=== PATIENT | male | born 1955 | race Caucasian/White ===

== ENCOUNTER → 2018-06-04 11:11 | Outpatient (CLI) | payer OTHER, SELFPAY ==
--- NOTE | 2018-06-04 | DI.RAD.S_ITS ---
PROCEDURE: XR CHEST 2V INDICATIONS: COUGH/FORMER SMOKER TECHNIQUE: 2 views of the chest were acquired. COMPARISON: [facility], , CHEST 2 VIEW, 04/13/2016, 12:59. FINDINGS: Surgical changes and devices: None. Lungs and pleura: No acute consolidation. Scattered subsegmental atelectasis and/or scarring. No pleural effusions or pneumothorax. Mediastinum: Mediastinal contours are normal. Heart size is normal. Bones and chest wall: No suspicious bony abnormalities. Soft tissues appear unremarkable. IMPRESSION: No acute disease. Dictated by: Dima Caceres M.D. on 06/04/2018 at 12:15 Approved by: Dima Caceres M.D. on 06/04/2018 at 12:16
== END ==
PROVIDERS: PCP Family Medicine; Visit Provider Family Medicine
DX: R05 Cough (principal); Z87.891 Personal history of nicotine dependence
CPT/HCPCS: 71046

== ENCOUNTER → 2018-07-24 19:07 | Outpatient (CLI) | payer OTHER, SELFPAY | PROVIDERS: Family Provider Family Medicine; PCP Family Medicine; Visit Provider Physician Assistant | DX: R68.89 Other general symptoms and signs (principal) | CPT/HCPCS: 87400 ==

== ENCOUNTER 2018-07-24 20:08 | Emergency (ER) | payer OTHER, SELFPAY ==
[2018-07-24 20:17] VITALS: BP 109/75; PULSE 91; RESP 18; TEMP 36.2; O2SAT 98
[2018-07-24 21:13] LABS: Add Manual Diff / Slide Review NO; Basophils Absolute Auto 0 /uL (0-100); Basophils Percent Auto 0.4 % (0-2); Eosinophils Absolute Auto 0 /uL (0-450); Hematocrit 44.2 % (41-53); Hemoglobin 14.7 g/dL (13.5-17.5); Lymphocytes Absolute Auto 800 /uL (1100-4500); Lymphocytes Percent Auto 12.5 % (25-40); Mean Corpuscular HGB Conc 33.3 % (30-36); Mean Corpuscular Hemoglobin 28.4 PG (26-34); Mean Corpuscular Volume 85.2 fL (80-100); Monocytes Absolute Auto 800 /uL (0-900); Monocytes Percent Auto 12.7 % (3-14); Neutrophils Absolute Auto 4900 /uL (1500-7000); Neutrophils Percent Auto 74.4 % (50-75); Platelet Count 242 X10^3/uL (150-400); Red Blood Cell Count 5.19 X10^6/uL (4.5-5.9); Red Cell Distribution Width 13.8 % (11.6-14.8); White Blood Cell Count 6.6 X10^3/uL (4.5-11.0)
[2018-07-24 21:22] LABS: Alanine Aminotransferase 35 IU/L (21-72); Albumin 4.1 g/dL (3.5-5.0); Albumin Globulin Ratio 1.4 (1.0-2.8); Alkaline Phosphatase 45 U/L (38-126); Aspartate Aminotransferase 41 IU/L (17-59); BUN Creatinine Ratio 17.3 (6-22); Bilirubin Total 0.4 mg/dL (0.2-1.3); Blood Urea Nitrogen 19 mg/dL (9-20); Calcium 8.7 mg/dL (8.4-10.2); Carbon Dioxide 23 mmol/L (22-32); Chloride 97 mmol/L (98-107); Estimated Glomerular Filt Rate > 60.0 mL/min (>60); Glucose 104 mg/dL (80-110); HEMOLYSIS 39 (0-50); Potassium 3.7 mmol/L (3.4-5.1); Sodium 131 mmol/L (137-145); Total Protein 7.1 g/dL (6.3-8.2)
[2018-07-24] MEDS: SODIUM CHLORIDE 0.9% 1,000 ML 1000 ML IV ×2 (21:30→22:49)
[2018-07-24 22:29] LABS: Creatine Kinase 255 U/L (55-170)
[2018-07-24 22:41] LABS: Troponin I < 0.012 ng/mL (0.01-0.034)
[2018-07-24 22:45] LABS: CKMB % Relative Index 0.7 % (1.5-5.0); Creatine Kinase MB 1.91 ng/mL (<2.37)
[2018-07-24 23:02] VITALS: BP 125/81; PULSE 82; RESP 18; O2SAT 100
--- NOTE | 2018-07-24 23:36 | ED.URI ---
HPI - URI/Sore Throat General Chief Complaint: Upper Respiratory Symptoms Stated Complaint: SENT BY WALK IN CLINIC Time Seen by Provider: 07/24/18 20:31 Source: patient and family Mode of arrival: ambulatory Limitations: no limitations History of Present Illness HPI Narrative: Patient comes emergency department complaining of fatigue for the past 4 days. Patient states that he has been noticing a mildly productive cough, diarrhea, body aches, fevers. He went to urgent care earlier, and was tested for influenza, but was not given results. He was also found to be in atrial fibrillation. Patient states he does not have any chest pain, shortness breath, or palpitations. No sense of heart racing. Patient is not known to have been in AFib before. Patient states he has a history of irregular heartbeat 15 or 20 years ago was to PVCs. States he has not had any other issues with this since. No other complaints at this time. Related Data Home Medications Medication Instructions Recorded Confirmed valsartan PO 07/24/18 07/24/18 Allergies Allergy/AdvReac Type Severity Reaction Status Date / Time No Known Drug Allergies Allergy Verified 07/24/18 19:22 Review of Systems Constitutional Denies chills, Reports fever(s), Denies lethargy and Denies weakness Eyes Denies change in vision, Denies eye discharge, Denies irritation and Denies loss of vision ENT Ears, Nose, Mouth, and Throat: Denies change in voice, Denies neck pain and Denies sore throat Cardiovascular Denies chest pain, Denies irregular heart rhythm, Denies lightheadedness, Denies palpitations, Denies dyspnea, Denies dyspnea on exertion and Denies orthopnea Respiratory Reports cough, Denies dyspnea, Denies dyspnea on exertion and Denies wheezing Gastrointestinal Gastrointestinal: Denies abdominal pain, Denies change in bowel habits, Reports diarrhea, Denies nausea and Denies vomiting Genitourinary Denies hematuria, Denies flank pain, Denies urinary incontinence and Denies urinary urgency Musculoskeletal Denies neck pain Integumentary/Breasts Denies pruritus, Denies erythema, Denies rash and Denies wounds Neurologic Denies confusion, Denies loss of vision and Denies weakness Psychiatric Denies anxiety, Denies confusion, Denies depression, Denies homicidal ideation and Denies suicidal ideation Endocrine Denies palpitations Hematologic/Lymphatic Denies easy bruising Allergic/Immunologic Denies wheezing [facility] Medical History Healthy adult (Acute) Surgical History No pertinent past surgical history (Acute) Social History Smoking Status: Former smoker Social History Smoking Status: Former smoker Exam Initial Vital Signs Initial Vital Signs: Vital Signs Temperature 97.1 F L 07/24/18 20:17 Pulse Rate 91 H 07/24/18 20:17 Respiratory Rate 18 07/24/18 20:17 Blood Pressure 109/75 07/24/18 20:17 Pulse Oximetry 98 07/24/18 20:17 Const General: cooperative and well developed Nutritional Appearance: well nourished Orientation: alert, awake, oriented x3 and not confused HENMT Head: normocephalic and atraumatic Ears: external ears normal and TM's normal bilaterally Nose: external nose normal and No nasal discharge Face and sinus: sinuses nontender, face symmetric, no sinus tenderness and No dry mucous membranes Mouth: oral mucosae normal and moist mucous membranes Teeth and gingiva: dentition normal Throat: tonsils normal and uvula midline Eyes General: appearance normal, both eyes and all related structures Eyelids: eyelids normal Conjunctivae: conjunctivae normal Sclera: sclerae normal Pupils: PERRL EOM: EOM intact bilaterally Neck Neck: normal visual inspection, trachea midline, No lymphadenopathy, No midline deformity and No JVD Lymphatic: No lymphedema Chest Chest: normal inspection of the chest Resp Effort & Inspection: normal respiratory effort, able to speak in complete sentences, no respiratory distress and no use of accessory muscles Auscultation: clear to auscultation bilaterally, no rales, no rhonchi and no wheezes Cardio Rhythm: abnormal rhythm irregularly irregular Heart Sounds: no click, no gallops, no murmurs and no rubs Pulses: normal peripheral pulses GI Inspection: non-distended Palpation: soft, no hepatosplenomegaly, No guarding, No pulsatile mass and No tender Auscultation: normal bowel sounds Back/Spine/Pelvis Back: No CVA tenderness Cervical Spine: cervical ROM normal and No pain with cervical ROM Thoracic/Lumbar Spine: thoracic and lumbar spine normal to inspection Skin General: no rashes or lesions noted, No jaundice and No petechiae Neuro General: alert, oriented x3, gait normal and no focal motor deficits Speech: speech normal Extrem General: full ROM, no clubbing, cyanosis or edema, no pedal edema and no calf tenderness Psych Appearance: well kempt Mental Status: mental status grossly normal Attitude: cooperative Thought Content: normal and suicidality Judgment: judgment good Course Course Narrative: Patient was worked up with laboratory studies, which showed a mild hyponatremia. His calcium potassium were normal. Patient's white blood cell count was also normal. His EKG showed atrial fibrillation with rate. Patient's influenza results from urgent care clinic was reviewed, and found to be positive. Patient was out of the window for Tamiflu. Patient was given a dose of digoxin the emergency department, which did not result in conversion of his rhythm. However, patient remained at a normal rate throughout his stay. I did feel that the patient should follow up with Cardiology, though otherwise he appeared quite well. I felt that his fatigue was more likely to be due to his influenza than to the rate controlled atrial fibrillation, given his normal blood pressure, generally good health and lack of other cardiac pathology. We have discussed home management of the symptoms, the timeline for illness and resolution with regard to influenza, and the usual indications for return. Orders Ordered: Discontinued Medications Sodium Chloride (Normal Saline 0.9%) 1,000 mls @ 1,000 mls/hr IV BOLUS ONE Stop: 07/24/18 22:04 Last Infusion: 07/24/18 22:30 Dose: 0 mls/hr Admin: 07/24/18 21:30 Dose: 1,000 mls/hr Sodium Chloride (Normal Saline 0.9%) 1,000 mls @ 1,000 mls/hr IV BOLUS ONE Stop: 07/24/18 23:28 Last Infusion: 07/24/18 23:50 Dose: 0 mls/hr Admin: 07/24/18 22:49 Dose: 1,000 mls/hr Vital Signs - 8 hr 07/24/18 20:17 07/24/18 23:02 Temperature 97.1 F L Pulse Rate 91 H 82 Respiratory Rate 18 18 Blood Pressure 109/75 Blood Pressure [Left Arm] 125/81 Pulse Oximetry 98 100 MDM - URI/Sore Throat Medical Records Attestation: I reviewed the patient's medical records. Lab Data Attestation: I reviewed the patient's lab results. Result diagrams: 07/24/18 21:07/24/18 21:09 Lab Results 07/24/18 07/24/18 07/24/18 Range/Units 21:09 21:09 21:09 WBC 6.6 (4.5-11.0) X10^3/uL RBC 5.19 (4.5-5.9) X10^6/uL Hgb 14.7 (13.5-17.5) g/dL Hct 44.2 (41-53) % MCV 85.2 (80-100) fL MCH 28.4 (26-34) PG MCHC 33.3 (30-36) % RDW 13.8 (11.6-14.8) % Plt Count 242 (150-400) X10^3/uL Neut % (Auto) 74.4 (50-75) % Lymph % (Auto) 12.5 L (25-40) % Pine % (Auto) 12.7 (3-14) % Eos % (Auto) 0.0 L (2-4) % Baso % (Auto) 0.4 (0-2) % Neut # (Auto) 4900 (5251-0497) /uL Lymph # (Auto) 800 L (8191-7170) /uL Pine # (Auto) 800 (0-900) /uL Eos # (Auto) 0 (0-450) /uL Baso # (Auto) 0 (0-100) /uL Sodium 131 L (137-145) mmol/L Potassium 3.7 (3.4-5.1) mmol/L Chloride 97 L (98-107) mmol/L Carbon Dioxide 23 (22-32) mmol/L BUN 19 (9-20) mg/dL Creatinine 1.10 (0.66-1.25) mg/dL Estimated GFR > 60.0 (>60) mL/min BUN/Creatinine Ratio 17.3 (6-22) Glucose 104 (80-110) mg/dL Calcium 8.7 (8.4-10.2) mg/dL Total Bilirubin 0.4 (0.2-1.3) mg/dL AST 41 (17-59) IU/L ALT 35 (21-72) IU/L Alkaline Phosphatase 45 (38-126) U/L Total Creatine Kinase 255 H (55-170) U/L CK-MB (CK-2) 1.91 (<2.37) ng/mL CK-MB (CK-2) Rel Index 0.7 L (1.5-5.0) % Troponin I < 0.012 (0.01-0.034) ng/mL Total Protein 7.1 (6.3-8.2) g/dL Albumin 4.1 (3.5-5.0) g/dL Globulin 3.0 (1.7-4.1) g/dL Albumin/Globulin Ratio 1.4 (1.0-2.8) ECG Data Attestation: I personally reviewed and interpreted this ECG as follows: ( See below) Interpretation: 12 lead EKG performed July 24, 2018 at 8:28 p.m., as follows: Irregular ventricular rhythm with a rate of 86 beats per minute MA interval and P-waves undetectable QRS duration 92 millisecond QTC interval [address] or T-wave changes in summary: Atrial fibrillation with normal rate; no STEMI; abnormal EKG as interpreted by ED MD. Discharge Plan Departure Patient Disposition: Home Clinical Impression: Influenza Atrial fibrillation Qualifiers: Atrial fibrillation type: unspecified Qualified Code(s): I48.91 - Unspecified atrial fibrillation Discharge Date/Time: 07/25/18 00:52 Interventions: ED Discharge Assessment Last Done: 07/25/18 00:52 Instructions: DI for Atrial Fibrillation, DI for Influenza -- Adult Activity Restrictions/Additional Instructions: Your influenza test from the urgent care center was positive. The symptoms you are having our very typical of influenza, and will subside as your body overcomes the virus. You may take ibuprofen and Tylenol for fever, as needed. You should drink plenty of fluids. Your heart was found to be in an irregular rhythm called atrial fibrillation. Your heart rate has been normal, which is good. Your sodium was slightly low, not low enough to cause any major heart arrhythmias. Your potassium and calcium were normal. Prescriptions: No Action valsartan PO RF: 0 Referrals: [facility] Cardiology [Provider Group] (Please call tomorrow to make an appointment to follow up as soon as possible about your new onset atrial fibrillation.) Justin Zeng MD [Primary Care Provider] -
[2018-07-24 23:56] VITALS: BP 123/82; PULSE 94; RESP 18; O2SAT 97
== END 2018-07-25 00:52 | disposition home or self-care (01) ==
PROVIDERS: Emergency Provider Emergency Medicine; Family Provider Family Medicine; PCP Family Medicine
DX: J11.1 Influenza due to unidentified influenza virus with other respiratory manifestations (principal); I48.91 Unspecified atrial fibrillation; R68.89 Other general symptoms and signs
CPT/HCPCS: 36591; 80053; 82550; 82553; 84484; 85025; 87400; 93005; 96360; 96361; 99283; 99284

== ENCOUNTER → 2018-08-04 08:11 | Outpatient (CLI) | payer OTHER, SELFPAY ==
--- NOTE | 2018-08-04 | DI.ECHO.S_ITS ---
[facility] +---------+ : : [address] : : : : [place], [place] : : : : [id number] : : : : Phone: [phone] Echocardiogram Report + + :Name: ASHWINI HARP Study Date: 08/04/2018 Height: 69 in : :[facility] Weight: 224 lb : : Gender: Male BSA: 2.2 m2 : :: 1955 Age: 62 yrs BP: 110/66 mmHg: :Reason For Study: Atrial fibrillation : : Performed By: Lena Navarro : :Referring: RAE MARADIAGA : + + Interpretation Summary Normal left ventricle size with ejection fraction 60-65%. Moderately dilated left atrium. Mild to moderate mitral regurgitation. Mild tricuspid regurgitation. Procedure: A two-dimensional transthoracic echocardiogram with color flow and Doppler was performed. The study quality was technically adequate. There is no prior echocardiogram noted for this patient. The patient was in atrial fibrillation with heart rates between 65-80 bpm during the exam. Left Ventricle: The left ventricle is normal in size. There is normal left ventricular wall thickness. The ejection fraction is estimated to be 60-65%. There are no focal wall motion abnormalities. Diastolic function could not be accurately assessed due to atrial fibrillation. Right Ventricle: The right ventricle grossly appears normal in size with probable normal systolic function. Atria: The left atrium is moderately dilated. Right atrial size is normal. The interatrial septum is intact with no evidence for an atrial septal defect. Mitral Valve: The mitral valve is grossly normal. There is mild to moderate mitral regurgitation. Aortic Valve: The aortic valve is trileaflet. The aortic valve opens well. No aortic regurgitation is present. Tricuspid Valve: The tricuspid valve is not well visualized, but is grossly normal. There is mild tricuspid regurgitation. The right ventricular systolic pressure is estimated to be at least 24 mmHg based on an estimated right atrial pressure of 3 mm Hg. Pulmonic Valve: The pulmonic valve is normal in structure and function. There is trace pulmonic regurgitation. Great Vessels: The aortic root is normal size. The dimensions of the ascending aorta are normal. The aortic arch is normal in size. The IVC is of normal diameter and collapses greater than 50% with a sniff. This suggests a low right atrial pressure of 3 mm Hg. Pericardium/ Pleura There is no pericardial effusion. There is no pleural effusion. MMode/2D Measurements & Calculations LVIDd: 4.8 cm Ao root diam: 3.6 cm LVIDs: 3.3 cm Aortic Jxn: 3.0 cm FS: 31.8 % asc Aorta Diam: 3.4 cm EPSS: 1.2 cm Ao Arch Diam (Prox Trans): 2.8 cm IVSd: 0.99 cm LVPWd: 0.94 cm LV mahan. diameter/BSA (cm/m^2): 2.2 LV sys. diameter/BSA (cm/m^2): 1.5 LA dimension: 4.1 cm RA long axis: 5.5 cm LA A2 area: 25.7 cm2 RA area: 17.4 cm2 LA A4 area: 27.0 cm2 RA vol: 46.8 ml LA length (vol): 5.9 cm RA : 21.6 ml/m2 LA vol: 99.9 ml IVC diam: 2.0 cm LA vol index: 46.1 ml/m2 RVDd major: 6.2 cm RVD1 (basal): 3.9 cm RVD2 (mid): 3.9 cm Doppler Measurements & Calculations Ao V2 max: 133.9 cm/sec MV E max helder: 77.5 cm/sec Ao V2 mean: 80.4 cm/sec MV A max helder: 23.2 cm/sec Ao max P.2 mmHg MV E/A: 3.3 Ao mean P.2 mmHg Med Peak E' Helder: 9.7 cm/sec Ao V2 VTI: 25.9 cm E/E' med: 8.0 Lat Peak E' Helder: 11.5 cm/sec E/E' lat: 6.7 E/e' average: 7.4 MV dec time: 0.23 sec MV P1/2t: 68.1 msec TR max helder: 230.9 cm/sec MV P1/2t max helder: 77.0 cm/sec TR max P.3 mmHg MVA(P1/2t): 3.2 cm2 PA V2 max: 68.0 cm/sec PA V2 mean: 44.6 cm/sec PA mean P.91 mmHg PA Accel Time: 0.16 sec Electronically signed by: Landon Yanes on Reading Physician:08/04/2018 12:54 PM
== END ==
PROVIDERS: PCP Family Medicine; Visit Provider Family Medicine
DX: I08.1 Rheumatic disorders of both mitral and tricuspid valves (principal); I48.91 Unspecified atrial fibrillation
CPT/HCPCS: 93306

== ENCOUNTER → 2018-10-29 13:47 | Outpatient (CLI) | payer OTHER, SELFPAY ==
--- NOTE | 2018-10-29 14:50 | P.PCN_ITS ---
Cardiac Stress Test Report Referral & Results Date Patient Seen: 10/29/18 Time Patient Seen: 14:30 Requesting provider: Yaima Pabon Indication: Persistent atrial fibrillation Rest ECG: Atrial fibrillation Procedure Note: Today following both written and verbal informed consent the patient was exercised according to a standard Jose Carlos protocol patient went for a total of 7 minutes 9 seconds achieving a maximum heart rate of 163 maximum systolic blood pressure of 150. This is approximately 7 METS. Exercise was terminated at this point because target her med and patient could not continue. Patient was also given Cardiolite through a previously started Hep-Lock IV by the ground nuclear weapons assembly officer approximately 1 minute prior to the cessation of exercise. Impression: Low probability for ischemia. Will await perfusion imaging. Please note: Actual ECG tracings can be found in the PACS system.
--- NOTE | 2018-10-30 16:39 | DI.NM.S_ITS ---
DATE OF SERVICE: 10/29/2018 PROCEDURE PERFORMED: Exercise treadmill stress and rest myocardial perfusion imaging study with gating to assess ejection fraction and regional wall motion. ORDERING PROVIDER: Yaima Pabon MD INDICATIONS: The patient is a 62-year-old male with recently discovered atrial fibrillation with exercise intolerance and dyspnea. EXERCISE TREADMILL TESTING: The patient was able to exercise for a total of 7 minutes 9 seconds on a standard Jose Carlos protocol suggesting moderately reduced exercise capacity with an DOMENICO of +15%. He had a moderately accentuated heart rate response with a resting heart rate of 98 bpm increasing to a maximum of 163 bpm (104% of his predicted maximum). He had a normal blood pressure response. He denied any chest discomfort. His resting ECG shows atrial fibrillation at 82 bpm [address] relatively normal ST segments. There are no significant ST-segment shifts with exercise. There were no other arrhythmias. At 6 minutes of exercise, at heart rate of 149 bpm, 22.7 mCi of technetium-99 Myoview was injected and the patient was imaged 20 minutes later using a gated SPECT acquisition protocol. He returned the following day and was reinjected with an additional 20.9 mCi of technetium-99 Myoview and was imaged 30 minutes later, again using a gated SPECT acquisition protocol. FINDINGS: 1. Raw Data: There is fairly good myocardial tracer uptake. The lung/heart ratio is normal at 0.28 with a normal TID ratio of 0.95. 2. Quantitative Gated SPECT: Post stress ejection fraction is estimated at 60% without any focal wall motion abnormality. Resting ejection fraction is estimated at 66% with a borderline elevated end-diastolic volume of 135 mL. 3. Myocardial Perfusion Imaging: Post stress supine images show a fairly normal myocardial perfusion pattern with a very subtle defect in the inferior wall in a pattern that would be consistent with diaphragmatic attenuation, supported by its complete resolution on the prone images. The resting images show a similar perfusion pattern without any areas of significant improvement. CONCLUSIONS: 1. Normal myocardial perfusion pattern. 2. Mild, fixed inferior perfusion defect that resolves on prone imaging consistent with diaphragmatic attenuation artifact. There is no compelling evidence for myocardial ischemia or previous myocardial infarction. 3. Normal left ventricular systolic function without any focal wall motion abnormality. Left ventricular volumes are borderline increased. 4. Moderately impaired exercise capacity with a moderately accentuated heart rate response to exercise due to atrial fibrillation but no angina or ECG evidence of ischemia. Karri Hanna - RS/fn/ab doc#: [id number]/job#: [id number] dd: 10/30/2018 12:51:00 dt: 10/30/2018 16:29:00 DICTATING MD/COPIES TO: Zeus Gutierrez MD; Yaima Pabon MD COPIES MNE: FRANSISCO KIRBY
== END ==
PROVIDERS: PCP Family Medicine; Visit Provider Internal Medicine Cardiovascular Disease
DX: I48.1 Persistent atrial fibrillation (principal); R06.00 Dyspnea, unspecified
CPT/HCPCS: 78452; 93016; 93017; 93018; A9502

== ENCOUNTER → 2019-05-29 13:13 | Outpatient (CLI) | payer OTHER, SELFPAY ==
--- NOTE | 2019-05-29 | DI.CT.S_ITS ---
PROCEDURE: CT HEAD/BRAIN W CON INDICATIONS: SUDDEN VISION LOSS TECHNIQUE: 4.5 mm thick angled axial sections acquired from the foramen magnum to the vertex after the administration of intravenous contrast, with coronal and sagittal reformats. For radiation dose reduction, the following was used: automated exposure control, adjustment of mA and/or kV according to patient size. COMPARISON: [facility], MRI BRAIN (IAC) W/WO CONTRAST, 07/11/2004, 8:37. FINDINGS: Image quality: Excellent. CSF Spaces: Basal cisterns are patent. No extra-axial fluid collections. Ventricles are normal in size and shape. Brain: No midline shift. No intracranial bleeds or masses. No abnormal intracranial enhancement. Briones-white interface appears normal. Skull and face: Calvarium and visualized facial bones appear intact, without suspicious lesions. Sinuses: Visualized sinuses and mastoids are clear. IMPRESSION: 1. No acute intracranial process. Dictated by: Tahira Nunes M.D. on 05/29/2019 at 13:34 Approved by: Tahira Nunes M.D. on 05/29/2019 at 13:35
== END ==
PROVIDERS: Family Provider Family Medicine; PCP Family Medicine; Visit Provider Internal Medicine Cardiovascular Disease
DX: H53.139 Sudden visual loss, unspecified eye (principal); I48.0 Paroxysmal atrial fibrillation
CPT/HCPCS: 70460; Q9967

== ENCOUNTER 2019-07-18 14:38 | Emergency (ER) | payer OTHER, SELFPAY ==
[2019-07-18 14:51] VITALS: BP 177/97; PULSE 79; RESP 16; TEMP 36.6; O2SAT 98
--- NOTE | 2019-07-18 14:51 | DI.RAD.S_ITS ---
PROCEDURE: XR TIBIA FUBULA RT 2V INDICATIONS: Log hit R lower leg, large laceration w/adipose exposure TECHNIQUE: 2 views of the tibia and fibula were acquired. COMPARISON: None. FINDINGS: Bones: No fractures or dislocations. No suspicious bony lesions. Age-appropriate bony degenerative changes are seen. Soft tissues: Numerous areas of soft tissue gas are seen. No radiopaque foreign bodies are seen. IMPRESSION: Soft tissue injury with soft tissue gas. No noemi bony injury can be seen. No radiopaque foreign bodies are seen. Dictated by: Xu Yanez M.D. on 07/18/2019 at 14:38 Approved by: Xu Yanez M.D. on 07/18/2019 at 14:39
--- NOTE | 2019-07-18 16:09 | PC.NURSE ---
tourniquet placed at 1550 to aid in vessel repair. Removed at 1600.
[2019-07-18 16:20] LABS: Add Manual Diff / Slide Review NO; Basophils Absolute Auto 100 /uL (0-100); Basophils Percent Auto 0.6 % (0-2); Eosinophils Absolute Auto 200 /uL (0-450); Eosinophils Percent Auto 1.6 % (2-4); Hematocrit 41.3 % (41-53); Hemoglobin 13.8 g/dL (13.5-17.5); INR 1.2 (0.9-1.3); Lymphocytes Absolute Auto 1800 /uL (1100-4500); Lymphocytes Percent Auto 18.1 % (25-40); Mean Corpuscular HGB Conc 33.4 % (30-36); Mean Corpuscular Hemoglobin 28.6 PG (26-34); Mean Corpuscular Volume 85.6 fL (80-100); Monocytes Absolute Auto 900 /uL (0-900); Monocytes Percent Auto 9.3 % (3-14); Neutrophils Absolute Auto 6900 /uL (1500-7000); Neutrophils Percent Auto 70.4 % (50-75); Platelet Count 292 X10^3/uL (150-400); Prothrombin Time 14.3 SECONDS (10.1-12.7); Red Blood Cell Count 4.83 X10^6/uL (4.5-5.9); Red Cell Distribution Width 13.7 % (11.6-14.8); White Blood Cell Count 9.8 X10^3/uL (4.5-11.0)
[2019-07-18 16:23] LABS: PTT Partial Thromboplastin Tim 38 SECONDS (26.4-36.2)
[2019-07-18 16:52] LABS: Creatine Kinase 329 U/L (55-170)
[2019-07-18 17:37] LABS: BUN Creatinine Ratio 19.1 (6-22); Blood Urea Nitrogen 17 mg/dL (9-20); Calcium 9.5 mg/dL (8.4-10.2); Carbon Dioxide 24 mmol/L (22-32); Chloride 106 mmol/L (98-107); Estimated Glomerular Filt Rate > 60.0 mL/min (>60); Glucose 97 mg/dL (80-110); HEMOLYSIS < 15 (0-50); Potassium 4.1 mmol/L (3.4-5.1); Sodium 138 mmol/L (137-145)
--- NOTE | 2019-07-18 17:58 | ED_ITS ---
HPI - Wound/Laceration General Chief Complaint: Wound/Laceration Stated Complaint: right leg calf cut open bleeding Time Seen by Provider: 07/18/19 15:11 Source: patient Mode of arrival: Ambulatory Limitations: no limitations History of Present Illness HPI narrative: 63-year-old male here for evaluation of a laceration to his right calf/lower leg. Patient was cutting wood when a piece of a stump that he was cutting came up and hit him on his leg. He was wearing long pants at the time. Initially he thought that he had broke his leg. He then noticed that his pant leg was torn in the note is blood on the pant leg. Covered with a bandage. Came to the emergency department for evaluation. Patient states that he is up-to-date on his tetanus. Prior to my arrival he was seen by the day provider who provided initial stabilization of the bleeding with a tourniquet and tying off of 2 vessels that were bleeding. A compression bandage was then placed. The tourniquet was removed. Patient was sent for an x-ray. Related Data Home Medications Medication Instructions Recorded Confirmed valsartan PO 07/24/18 07/24/18 apixaban [Eliquis] 5 mg PO DAILY 07/18/19 07/18/19 diltiazem HCl 120 mg PO DAILY 07/18/19 07/18/19 etodolac 400 mg PO TID 07/18/19 07/18/19 flecainide 50 mg PO BID 07/18/19 07/18/19 pantoprazole 40 mg PO DAILY 07/18/19 07/18/19 rosuvastatin 2.5 mg PO BEDTIME 07/18/19 07/18/19 Previous Rx's Medication Instructions Recorded cephalexin [Keflex] 500 mg PO QID 7 Days #28 cap 07/18/19 Allergies Allergy/AdvReac Type Severity Reaction Status Date / Time No Known Drug Allergies Allergy Verified 07/18/19 14:59 Review of Systems Constitutional Constitutional: Denies fever(s) and Denies headache(s) ENT Ears, Nose, Mouth, and Throat: Denies headache(s) Cardiovascular Cardiovascular: Denies chest pain and Denies dyspnea Respiratory Respiratory: Denies dyspnea Gastrointestinal Gastrointestinal: Denies abdominal pain, Denies nausea and Denies vomiting Musculoskeletal Comments: Right leg pain Integumentary/Breasts Comments: Cut to the right leg Neurologic Neurologic: Denies behavioral changes and Denies headache(s) Psychiatric Psychiatric: Denies behavioral changes Hematologic/Lymphatic Comments: On Eliquis Allergic/Immunologic Allergic/Immunologic: Denies urticaria Patient History Medical History Atrial fibrillation (Acute) Healthy adult (Acute) Surgical History No pertinent past surgical history (Acute) Social History Smoking Status: Former smoker Smoking Status: Former smoker alcohol intake frequency: 0-2 drinks per day Substance Use Type: does not use Exam Initial Vital Signs Initial Vital Signs: Vital Signs Temperature 98 F 07/18/19 14:51 Pulse Rate 79 07/18/19 14:51 Respiratory Rate 16 07/18/19 14:51 Blood Pressure 177/97 H 07/18/19 14:51 Pulse Oximetry 98 07/18/19 14:51 Const General: cooperative, comfortable, well developed and well groomed Limitations: mental status not altered HENMT Head: normal to inspection and normocephalic Resp Effort & Inspection: normal respiratory effort Cardio Pulses: dorsalis pedis present on the right Skin Other: Patient with a total of make cm ?L? shaped laceration to the medial aspect of the mid tibia. Neuro General: moves all extremities Sensory Exam: no sensory deficits noted Extrem General: capillary refill normal Procedures Laceration Repair Laceration 1: Site: lower extremity Side (If applicable): right Size (cm): 8 Description: irregular Depth: involves muscle layer Local Anesthetic: lidocaine 1% and with epi Amount of anesthesia used (mL): 10 Pre-repair: wound explored and irrigated extensively Skin layer closed with: nylon Size (cm): 3-0 Number of sutures: 17 Technique: simple, interrupted Course Orders Ordered: ED Orders 07/18/19 16:00 Basic Metabolic Panel Stat Complete Blood Count AUTO DIFF Stat Creatine Kinase Stat PTT [Partial Thromboplastin Time] Stat Prothrombin Time INR Stat Discontinued Medications Hydrocodone Bitart/Acetaminophen (Vicodin 5/325 Prepack) 1 bottle MISC SEEINSTR ONE Stop: 07/18/19 20:59 Last Admin: 07/18/19 21:07 Dose: 1 bottle Documented by: KSWACKH Bacitracin (Bacitracin) 3 applic TOP NOW ONE Stop: 07/18/19 15:35 Cefazolin Sodium (Ancef Vial) 1 gm IV NOW ONE Stop: 07/18/19 17:56 Last Admin: 07/18/19 20:37 Dose: Not Given Documented by: ISACC Sodium Chloride (Normal Saline 0.9%) 1,000 mls @ 150 mls/hr IV CONT ZEB Last Admin: 07/18/19 20:37 Dose: Not Given Documented by: ISACC Cefazolin Sodium/Dextrose (Ancef) 2 gm in 100 mls @ 200 mls/hr IV NOW ONE Stop: 07/18/19 19:47 Last Infusion: 07/18/19 20:10 Dose: 0 mls/hr Documented by: Admin: 07/18/19 19:36 Dose: 200 mls/hr Documented by: ESTEFANIA Tranexamic Acid 1,000 mg/ (Sodium Chloride) 100 mls @ 400 mls/hr IV NOW ONE Stop: 07/18/19 19:48 Lidocaine/Epinephrine (Xylocaine 2% W/Epi) 20 ml INJ INTRA-OP ONE Stop: 07/18/19 15:35 Last Admin: 07/18/19 20:11 Dose: 20 ml Documented by: TAYLOR Lidocaine/Sodium Bicarbonate (Buffered Lidocaine 10 Ml Syr) 20 ml INJ NOW ONE Stop: 07/18/19 15:35 Tranexamic Acid (Cyklokapron) 1,000 mg MM NOW ONE Stop: 07/18/19 19:51 Last Admin: 07/18/19 20:03 Dose: 1,000 mg Documented by: ESTEFANIA Vital Signs Vital signs: Vital Signs - 8 hr 07/18/19 20:09 07/18/19 21:16 Pulse Rate 85 72 Respiratory Rate 16 Blood Pressure 161/82 H Blood Pressure [Left Arm] 145/93 H Pulse Oximetry 98 99 MDM - Wound/Laceration Lab Data Attestation: I reviewed the patient's lab results. Result diagrams: 07/18/19 16:00 07/18/19 16:00 Labs: Lab Results 07/18/19 07/18/19 07/18/19 Range/Units 16:00 16:00 16:00 WBC 9.8 (4.5-11.0) X10^3/uL RBC 4.83 (4.5-5.9) X10^6/uL Hgb 13.8 (13.5-17.5) g/dL Hct 41.3 (41-53) % MCV 85.6 (80-100) fL MCH 28.6 (26-34) PG MCHC 33.4 (30-36) % RDW 13.7 (11.6-14.8) % Plt Count 292 (150-400) X10^3/uL Neut % (Auto) 70.4 (50-75) % Lymph % (Auto) 18.1 L (25-40) % Alfalfa % (Auto) 9.3 (3-14) % Eos % (Auto) 1.6 L (2-4) % Baso % (Auto) 0.6 (0-2) % Neut # (Auto) 6900 (4212-3010) /uL Lymph # (Auto) 1800 (8361-3379) /uL Alfalfa # (Auto) 900 (0-900) /uL Eos # (Auto) 200 (0-450) /uL Baso # (Auto) 100 (0-100) /uL PT 14.3 H (10.1-12.7) SECONDS INR 1.2 (0.9-1.3) APTT 38 H (26.4-36.2) SECONDS Sodium (137-145) mmol/L Potassium (3.4-5.1) mmol/L Chloride (98-107) mmol/L Carbon Dioxide (22-32) mmol/L BUN (9-20) mg/dL Creatinine (0.66-1.25) mg/dL Estimated GFR (>60) mL/min BUN/Creatinine Ratio (6-22) Glucose (80-110) mg/dL Calcium (8.4-10.2) mg/dL Total Creatine Kinase 329 H (55-170) U/L 07/18/19 Range/Units 16:00 WBC (4.5-11.0) X10^3/uL RBC (4.5-5.9) X10^6/uL Hgb (13.5-17.5) g/dL Hct (41-53) % MCV (80-100) fL MCH (26-34) PG MCHC (30-36) % RDW (11.6-14.8) % Plt Count (150-400) X10^3/uL Neut % (Auto) (50-75) % Lymph % (Auto) (25-40) % Alfalfa % (Auto) (3-14) % Eos % (Auto) (2-4) % Baso % (Auto) (0-2) % Neut # (Auto) (4658-0854) /uL Lymph # (Auto) (5349-5580) /uL Alfalfa # (Auto) (0-900) /uL Eos # (Auto) (0-450) /uL Baso # (Auto) (0-100) /uL PT (10.1-12.7) SECONDS INR (0.9-1.3) APTT (26.4-36.2) SECONDS Sodium 138 (137-145) mmol/L Potassium 4.1 (3.4-5.1) mmol/L Chloride 106 (98-107) mmol/L Carbon Dioxide 24 (22-32) mmol/L BUN 17 (9-20) mg/dL Creatinine 0.89 (0.66-1.25) mg/dL Estimated GFR > 60.0 (>60) mL/min BUN/Creatinine Ratio 19.1 (6-22) Glucose 97 (80-110) mg/dL Calcium 9.5 (8.4-10.2) mg/dL Total Creatine Kinase (55-170) U/L Imaging Data Extremity x-ray #1: Radiologist's Impression: [address] [address] XRay Report Signed Patient: Karri Hanna WMR#: [id number] : 5Acct:[id number] Age/Sex: 63 / MDate of Service: 07/18/19 Loc: ED Accession Number: [id number] Procedure: XR tibia fibula RT 2V Ordering Provider: Joseph Montilla MD PROCEDURE: XR TIBIA FUBULA RT 2V INDICATIONS: Log hit R lower leg, large laceration w/adipose exposure TECHNIQUE: 2 views of the tibia and fibula were acquired. COMPARISON: None. FINDINGS: Bones: No fractures or dislocations. No suspicious bony lesions. Age- appropriate bony degenerative changes are seen. Soft tissues: Numerous areas of soft tissue gas are seen. No radiopaque foreign bodies are seen. IMPRESSION: Soft tissue injury with soft tissue gas. No noemi bony injury can be seen. No radiopaque foreign bodies are seen. Dictated by: Xu Yanez M.D. on 07/18/2019 at 14:38 Approved by: Xu Yanez M.D. on 07/18/2019 at 14:39 MDM Narrative Medical decision making narrative: X-ray showed no fractures, patient is neurovascularly intact, is up-to-date on tetanus, has a very irregular laceration to his right lower extremity. The vessels that were tied off are no longer bleeding. He is using from the muscle belly. Initially attempted Gel- Foam which slowed the oozing in the laceration was closed with a Angel drain left for drainage. This started to who is out blood soak the wound was opened. Was explored 1 more time. This time TXA soaked Gelfoam was used. This was left open for period of time without any continued bleeding. The wound then was closed as described above. A [place] drain was left in place. Was covered with a pressure dressing. He was given a dose of antibiotics here in the ER and then sent home with a prescription for antibiotics. He was given care instructions and return precautions. He expressed understanding and agreement. Discharge Plan Departure Patient Disposition: Home Clinical Impression: Laceration Discharge Date/Time: 07/18/19 21:17 Instructions: How to Care for a Laceration After Repair Activity Restrictions/Additional Instructions: You can change the bandage on Saturday like we discussed. I would wait until Saturday morning before you shower. When you do shower you can use soap and water. Be careful not to scrub the area. Some oozing is expected however if the bandages becomes saturated please return to the emergency department. On Saturday contact Dr. Zeng for a follow-up. The angel drain does need to be removed. He can just be pulled out. This could be removed at the beginning of next week. Take the antibiotics as directed they were electronically transmitted to [employer] [facility]. Prescriptions: New cephalexin [Keflex] 500 mg capsule 500 mg PO QID 7 Days Qty: 28 RF: 0 No Action valsartan PO RF: 0 diltiazem HCl 120 mg capsule,extended release 24hr 120 mg PO DAILY RF: 0 Eliquis 5 mg tablet 5 mg PO DAILY RF: 0 etodolac 400 mg Tablet 400 mg PO TID RF: 0 pantoprazole 40 mg tablet,delayed release (DR/EC) 40 mg PO DAILY RF: 0 flecainide 50 mg tablet 50 mg PO BID RF: 0 rosuvastatin 5 mg tablet 2.5 mg PO BEDTIME RF: 0 Referrals: Justin Zeng MD [Primary Care Provider] -
[2019-07-18] MEDS: CEFAZOLIN 2 GM/100 ML FROZ.PIGGY IV (19:36)
[2019-07-18] MEDS: TRANEXAMIC ACID 1,000 MG VIAL 1000 MG MM (20:03)
[2019-07-18 20:09] VITALS: BP 145/93; PULSE 85; O2SAT 98
[2019-07-18] MEDS: LIDOCAINE 2% W/EPI INJ 20 ML INJ (20:11)
[2019-07-18] MEDS: HYDROCODONE/ACET 5/325 PREPACK 1 BOTTLE MISC (21:07)
--- NOTE | 2019-07-18 21:09 | PC.NURSE ---
multiple provider attempted multiple times to control bleeding and close wound. Alberto packed wound with surgifoam soaked in TXA and applied a pressure dressing after closing wound. Bleeding controlled. Provider gave extensive education to patient at bedside. Pataint aware of increased risk of bleeding and will return for more bleeding if necessary.
[2019-07-18 21:16] VITALS: BP 161/82; PULSE 72; RESP 16; O2SAT 99
--- NOTE | 2019-07-19 13:35 | PC.NURSE ---
Pt called stating his pharmacy was closed. Asked that prescription for abx. Called cephalexin 500 mg po 4x day x 7 days into [facility]. Called pt back and let him know it was completed.
== END 2019-07-18 21:17 | disposition home or self-care (01) ==
PROVIDERS: Nurse Practitioner Family; Emergency Provider Emergency Medicine; Family Provider Family Medicine; PCP Family Medicine
DX: S81.811A Laceration without foreign body, right lower leg, initial encounter (principal); W45.8XXA Other foreign body or object entering through skin, initial encounter
CPT/HCPCS: 12004; 36415; 73590; 80048; 82550; 85025; 85610; 85730; 96365; 99284; J0690

== ENCOUNTER → 2019-08-10 14:43 | Outpatient (CLI) | payer OTHER, SELFPAY | PROVIDERS: Family Provider Family Medicine; PCP Family Medicine; Referring Provider Family Medicine; Visit Provider Family Medicine | DX: S81.801A Unspecified open wound, right lower leg, initial encounter (principal); Z79.01 Long term (current) use of anticoagulants; Z79.2 Long term (current) use of antibiotics | CPT/HCPCS: 11042; 11045; 99203; 99213 ==

== ENCOUNTER → 2019-08-17 09:18 | Outpatient (CLI) | payer OTHER, SELFPAY | PROVIDERS: Family Provider Family Medicine; PCP Family Medicine; Referring Provider Family Medicine; Visit Provider Family Medicine | DX: S81.801A Unspecified open wound, right lower leg, initial encounter (principal); Z79.01 Long term (current) use of anticoagulants | CPT/HCPCS: 11042; 11045; 97605 ==

== ENCOUNTER → 2019-08-20 10:19 | Outpatient (CLI) | payer OTHER, SELFPAY | PROVIDERS: Family Provider Family Medicine; PCP Family Medicine; Referring Provider Family Medicine; Visit Provider Family Medicine | DX: S81.801A Unspecified open wound, right lower leg, initial encounter (principal) | CPT/HCPCS: 97605 ==

== ENCOUNTER → 2019-08-24 13:32 | Outpatient (CLI) | payer OTHER, SELFPAY | PROVIDERS: Family Provider Family Medicine; PCP Family Medicine; Referring Provider Family Medicine; Visit Provider Family Medicine | DX: S81.801A Unspecified open wound, right lower leg, initial encounter (principal); Z79.01 Long term (current) use of anticoagulants | CPT/HCPCS: 11042; 11045; 97605 ==

== ENCOUNTER → 2019-08-27 09:20 | Outpatient (CLI) | payer OTHER, SELFPAY | PROVIDERS: Family Provider Family Medicine; PCP Family Medicine; Referring Provider Family Medicine; Visit Provider Family Medicine | DX: S81.811A Laceration without foreign body, right lower leg, initial encounter (principal) | CPT/HCPCS: 97605 ==

== ENCOUNTER → 2019-08-31 11:46 | Outpatient (CLI) | payer OTHER, SELFPAY | PROVIDERS: Family Provider Family Medicine; PCP Family Medicine; Referring Provider Family Medicine; Visit Provider Family Medicine | DX: S81.801A Unspecified open wound, right lower leg, initial encounter (principal); T81.31XA Disruption of external operation (surgical) wound, not elsewhere classified, initial encounter | CPT/HCPCS: 11042; 97605 ==

== ENCOUNTER → 2019-09-03 09:20 | Outpatient (CLI) | payer OTHER, SELFPAY | PROVIDERS: Family Provider Family Medicine; PCP Family Medicine; Referring Provider Family Medicine; Visit Provider Family Medicine | DX: S81.801A Unspecified open wound, right lower leg, initial encounter (principal) | CPT/HCPCS: 97605 ==

== ENCOUNTER → 2019-09-07 09:54 | Outpatient (CLI) | payer OTHER, SELFPAY | PROVIDERS: Family Provider Family Medicine; PCP Family Medicine; Referring Provider Family Medicine; Visit Provider Family Medicine | DX: S81.811A Laceration without foreign body, right lower leg, initial encounter (principal) | CPT/HCPCS: 97597 ==

== ENCOUNTER → 2019-09-10 09:00 | Outpatient (CLI) | payer OTHER, SELFPAY | PROVIDERS: Family Provider Family Medicine; PCP Family Medicine; Referring Provider Family Medicine; Visit Provider Family Medicine | DX: S81.801A Unspecified open wound, right lower leg, initial encounter (principal) | CPT/HCPCS: 97605 ==

== ENCOUNTER → 2019-09-14 10:47 | Outpatient (CLI) | payer OTHER, SELFPAY | PROVIDERS: Family Provider Family Medicine; PCP Family Medicine; Referring Provider Family Medicine; Visit Provider Family Medicine | DX: S81.801A Unspecified open wound, right lower leg, initial encounter (principal) | CPT/HCPCS: 97597 ==

== ENCOUNTER → 2019-09-22 11:04 | Outpatient (CLI) | payer OTHER, SELFPAY | PROVIDERS: Family Provider Family Medicine; PCP Family Medicine; Referring Provider Family Medicine; Visit Provider Family Medicine | DX: S81.801A Unspecified open wound, right lower leg, initial encounter (principal); R60.0 Localized edema | CPT/HCPCS: 11042; 99212 ==

== ENCOUNTER → 2019-09-24 08:27 | Outpatient (CLI) | payer OTHER, SELFPAY | PROVIDERS: Family Provider Family Medicine; PCP Family Medicine; Referring Provider Family Medicine; Visit Provider Family Medicine | DX: S81.801A Unspecified open wound, right lower leg, initial encounter (principal) | CPT/HCPCS: 99213 ==

== ENCOUNTER → 2019-10-01 08:48 | Outpatient (CLI) | payer OTHER, SELFPAY | PROVIDERS: Family Provider Family Medicine; PCP Family Medicine; Referring Provider Family Medicine; Visit Provider Family Medicine | DX: S81.801A Unspecified open wound, right lower leg, initial encounter (principal); R60.0 Localized edema | CPT/HCPCS: 11042 ==

== ENCOUNTER → 2019-10-08 09:35 | Outpatient (CLI) | payer OTHER, SELFPAY | PROVIDERS: Family Provider Family Medicine; PCP Family Medicine; Referring Provider Family Medicine; Visit Provider Family Medicine | DX: S81.801A Unspecified open wound, right lower leg, initial encounter (principal); R60.0 Localized edema | CPT/HCPCS: 11042 ==

== ENCOUNTER → 2019-10-15 09:24 | Outpatient (CLI) | payer OTHER, SELFPAY | PROVIDERS: Family Provider Family Medicine; PCP Family Medicine; Referring Provider Family Medicine; Visit Provider Family Medicine | DX: S81.801A Unspecified open wound, right lower leg, initial encounter (principal); R60.0 Localized edema | CPT/HCPCS: 17250 ==

== ENCOUNTER → 2019-10-22 12:09 | Outpatient (CLI) | payer OTHER, SELFPAY | PROVIDERS: Family Provider Family Medicine; PCP Family Medicine; Referring Provider Family Medicine; Visit Provider Family Medicine | DX: S81.801A Unspecified open wound, right lower leg, initial encounter (principal); R60.0 Localized edema | CPT/HCPCS: 97597 ==

== ENCOUNTER → 2019-10-29 10:12 | Outpatient (CLI) | payer OTHER, SELFPAY | PROVIDERS: Family Provider Family Medicine; PCP Family Medicine; Referring Provider Family Medicine; Visit Provider Family Medicine | DX: I87.2 Venous insufficiency (chronic) (peripheral) (principal); L97.811 Non-pressure chronic ulcer of other part of right lower leg limited to breakdown of skin; R60.0 Localized edema | CPT/HCPCS: 99212; 99213 ==

== ENCOUNTER → 2020-01-19 14:29 | Outpatient (CLI) | payer MEDICARE, SELFPAY ==
[2020-01-20 19:04] LABS: COVID19 Sendout Not Detected (Not Detect)
== END ==
PROVIDERS: Family Provider Family Medicine; PCP Family Medicine; Visit Provider Physician Assistant
DX: Z11.59 Encounter for screening for other viral diseases (principal)
CPT/HCPCS: 87635

== ENCOUNTER 2020-01-22 11:46 | Day surgery (SDC) | payer MEDICARE, SELFPAY ==
--- NOTE | 2020-01-22 11:51 | PM.PREOP ---
Pre-operative Note COVID-19 COVID-19 status: Negative Result date/Date tested (Pos, Neg/Pending): 01/19/20 Interval Note History & Physical reviewed/Exam performed by Physician: Yes Changes to H&P: No ASA Class (for procedural sedation): II
--- NOTE | 2020-01-22 11:56 | PM.OP.ENDO ---
Operative Date/Time/Diagnoses Date of procedure: 01/22/20 Procedure Notes SCOAP/Timeout: 13:03 Procedure in detail: ENDOSCOPIST: Rere Foss MD Sedation RN: Charisse Calderon RN Sedation start time: 13:04 Sedation end time: 13:33 PROCEDURE: Colonoscopy INDICATIONS: 1. Family history of colon cancer 2. Screening for cancer 3. Atrial fibrillation, on Eliquis MEDICATION: Levsin 0.125 mg sublingual, incremental doses of Versed and fentanyl until appropriate level sedation achieved. ASA CLASS: 2 CECAL WITHDRAWAL TIME: 7 minutes COMPLICATIONS: None. EXTENT OF PROCEDURE: Cecum. QUALITY OF PREP: Good with portions of liquid stool. PROCEDURE: Prior to insertion of the colonoscope, a digital rectal examination was accomplished with circumferential palpation of the distal rectal mucosa without significant findings being noted. The high-definition colonoscope was passed into the rectum in the usual fashion and advanced over to the cecum with some difficulty due to extreme tortuosity of the sigmoid colon. The ileocecal valve, appendiceal stoma, and medial wall all could be inspected and no abnormalities were seen. ASCENDING COLON: As the colonoscope was withdrawn, care was taken to expose and inspect the haustral folds and no abnormalities were seen. HEPATIC FLEXURE: Normal no polyps, diverticula or other abnormalities. TRANSVERSE COLON: Normal no polyps, diverticula or other abnormalities. DESCENDING COLON: Moderate diverticulosis, otherwise, normal, no polyps or other abnormalities. SIGMOID COLON: Moderate diverticulosis, otherwise, normal, no polyps or other abnormalities. RECTUM: Normal. J maneuver was produced. There was no significant perianal disease. The J maneuver was broken. The remainder of the rectum was inspected and there was [] no external hemorrhoid disease. The scope was withdrawn. IMPRESSION: 1. Normal colonoscopy 2. Moderate diverticulosis, left-sided PLAN: 1. Repeat colonoscopy in 5 years secondary to family history. 2. May restart Eliquis in 2 days. The possibility of a missed lesion including a malignancy has been discussed with the patient previously. Potential alarm symptoms have been discussed and should be reported immediately.
[2020-01-22] MEDS: HYOSCYAMINE 0.125 MG TABLET PO (12:10)
[2020-01-22] MEDS: LACTATED RINGERS 1,000 ML 200 ML IV (12:11)
[2020-01-22 12:15] VITALS: BP 143/88; PULSE 80; RESP 16; TEMP 36.5; O2SAT 98; BMI 32.5
[2020-01-22] MEDS: ONDANSETRON 4 MG/2 ML INJ IV ×2 (13:03→13:35)
[2020-01-22] MEDS: MIDAZOLAM 5 MG/5 ML VIAL IV (13:04)
[2020-01-22] MEDS: fentaNYL 250 MCG/5 ML INJ IV (13:04)
[2020-01-22 13:39] VITALS: BP 94/69; PULSE 70; RESP 26; TEMP 36.9; O2SAT 98
[2020-01-22 13:43] VITALS: BP 111/78; PULSE 70; RESP 17; O2SAT 99
[2020-01-22 13:48] VITALS: BP 113/71; PULSE 62; RESP 11; O2SAT 98
[2020-01-22 14:05] VITALS: BP 132/85; PULSE 68; RESP 16; TEMP 36.1; O2SAT 98
== END 2020-01-22 14:07 | disposition home or self-care (01) ==
PROVIDERS: Family Provider Family Medicine; PCP Family Medicine; Referring Provider Student in an Organized Health Care Education/Training Program; Visit Provider Student in an Organized Health Care Education/Training Program
PROC: 0DJD8ZZ Inspection of Lower Intestinal Tract, Via Natural or Artificial Opening Endoscopic (ICD-10-PCS; CPT 45378; principal; 2020-01-22 13:00)
DX: Z12.11 Encounter for screening for malignant neoplasm of colon (principal); Z80.0 Family history of malignant neoplasm of digestive organs; I48.91 Unspecified atrial fibrillation; Z79.01 Long term (current) use of anticoagulants; K57.30 Diverticulosis of large intestine without perforation or abscess without bleeding
CPT/HCPCS: G0105; J2250; J2405; J3010

== ENCOUNTER 2021-08-15 11:15 | Outpatient (RCR) | payer MEDICARE, SELFPAY ==
--- NOTE | 2021-08-11 12:42 | PT.OIE ---
Current Diagnoses Benign paroxysmal vertigo, unspecified ear (08/11/21) Pain in right hip (08/11/21) Dizziness and giddiness (08/11/21) Past Medical History (Last Updated 01/22/20 @ 12:25 by Cara Waters RN) Atrial fibrillation Healthy adult No pertinent past surgical history Past Surgical History (Last Reviewed 07/24/18 @ 23:45 by Kati Anderson MD) No pertinent past surgical history Visit Care Team Role Provider Type Buck Baca MD Attending Provider Physician Family Provider Primary Care Provider Referring Provider Specialty: Family Practice Address: [address] [place], [address] Email: [email or web address] [facility] Initial Evaluation PT-OP-A Visit Information Start: 08/11/21 12:13 Freq: Status: Active Protocol: Document 08/11/21 11:15 DCW (Rec: 08/11/21 12:39 DCW [id number]) Out-Patient Physical Therapy Visit Information Visit Information Visit Type Initial Evaluation Visit Start Time 11:15 Visit Stop Time 12:10 Total Visit Minutes 55 Visit Number 1 Number of TERMINAL BLOCK ASSEMBLER Visits 0 Evaluation Information Evaluation Date 08/11/21 PT-OP-B Current Condition Start: 08/11/21 12:13 Freq: Status: Active Protocol: Document 08/11/21 11:15 DCW (Rec: 08/11/21 12:39 DCW [id number]) Current Condition History of Current Condition Onset Date One year history Current Complaints Positional vertigo, right anterior hip pain History of Current Condition Pt is a 65 year old male complaining of a one year history of motion-induced vertigo. Pt reports episodes last 15-20 seconds. Symptoms are provoked by rolling in bed or getting on the ground to work on his car. Additionally, pt reports a history of three episodes of completely different vertigo which is spontaneous and lasts 6-10 hours, resulting in nausea/ vomiting, and leaves him bed bound during the episode. Pt notes that he has had three episodes over the last four years, the most recent being six months ago. Pt noted multiple times that these symptoms are completely different than his current positional symptoms. Pt does have a history of hearing loss , wears bilateral hearing aides, and has a years-long history of tinnitus. Pt denies recent hearing changes, diplopia, dysarthria, discoordination, or decreased mentation/consciousness. Pt denies hx of diabetes, head trauma, seizure, migraines, back/neck problems, CVA, anxiety/panic disorders, or depression. Pt has a history of both HTN and high cholesterol, both well controlled by medication. Pt also had a pacemaker implanted last year. Pt additionally reports a prior history of ETOH abuse, but has not had a drink in 22 years. Pt also comes to PT today complaining of anterior right hip pain, especially with increased flexion when trying to put his socks on in the morning. Pt notes it is like that's just all the motion I have, I've been thinking about just stopping wearing socks. Treatment Goals Patient/Caregiver Goals Eliminate positional vertigo, determine cause of other vertigo symptoms, decrease hip pain PT-OP-C Subjective Start: 08/11/21 12:13 Freq: Status: Active Protocol: Document 08/11/21 11:15 DCW (Rec: 08/11/21 12:39 DCW [id number]) OP-PT Subjective Patient Comments Patient Comments I had something similar to this a few years ago, and got it treated. It worked really well. My and I YouTubed it this time, and tried the little adjustment thing, which helped some, but there are still some remaining symptoms. Patient Reported Progress Improving Patient Questionnaires Dizziness Handicap Inventory DHI Score 14% DHI Functional Impairment 1 to 19% Impaired (Score 1-19) Lower Extremity Functional Scale LEFS Score 62/80 = 77.5% LEFS Impairment 20 to 39% Impaired (Score 48- 62) OP-PT Pain Assessment Pain Assessment Grid Paper Pain Assessment Grid Completed Yes Location Right Anterior Hip Intensity 6 Scale Used Numeric (0 - 10) Frequency Occasional PT-OP-O Vestibular Start: 08/11/21 12:13 Freq: Status: Active Protocol: Document 08/11/21 11:15 DCW (Rec: 08/11/21 12:39 DCW [id number]) Vestibular Assessment Screening Tests Vestibular Artery Screen Negative Auditory Tests Wang Test Within normal limits Rinne Test Negative Air Conduction Results Equal Visual Testing Smooth Pursuits Horizontal WNL Smooth Pursuits Vertical WNL Saccades Horizontal WNL Saccades Vertical WNL Heave Test Negative Thrust Head Negative Spontaneous Nystagmus Negative Positional Testing López-Hallpike Positive Left,Positive Right, Upbeating,< 60 Seconds Comments Vestibular Comments Mild up-beating, torsional nystagmus with R Hallpike, Very mild nystagmus L Hallpike , so minimal difficult to determine directionality PT-OP-Q Treatments Start: 08/11/21 12:13 Freq: Status: Active Protocol: Document 08/11/21 11:15 DCW (Rec: 08/11/21 12:39 DCW [id number]) Self-Care/Home Management Treatment Education Other Education BPPV edu, Discussed symptoms and possible treatment options of Meniere's disease Canalithic Repositioning BPPV Treatment Silvino Affected Canal(s) R Posterior Reps x2 Comments Modified Silvino PT-OP-T Assessment and Plan Start: 08/11/21 12:13 Freq: Status: Active Protocol: Document 08/11/21 11:15 DCW (Rec: 08/11/21 12:39 DCW [id number]) Physical Therapy Assessment Rehab Potential Rehabilitation Potential Good Evaluation Complexity Number of Personal Factors/Comorbidities 3 or More Number of Body Systems Impaired 3 Clinical Presentation at Evaluation Unstable Impairments Impairments Functional Activities, Functional Mobility,Gait,Pain, ROM,Soft Tissue Mobility, Strength,Vestibular Goals Three Impairment Pt experiences increased difficulty donning socks due to right hip pain Care Home Goal (LTG) Pt to don/doff socks with no increased pain. LTG Duration 10/11/21 Two Impairment Positive B López-Hallpike Short Term Goal (STG) Pt to present with entirely negative positional testing STG Duration 09/10/21 One Impairment Pt experiences vertigo with bed mobility Stoker Erector Goal (LTG) Pt to report no vertigo with bed mobility for one entire week LTG Duration 10/11/21 Assessment Summary Assessment During right López-Hallpike test , pt complained of vertigo and demonstrated mild up-beating, torsional nystagmus lasting approximately 10 seconds, consistent with diagnosis of left/right-sided posterior canal BPPV, canalithiasis-type . Additionally, during left [place]-Hallpike test, pt complained of vertigo and demonstrated very mild, nearly impossible to see nystagmus, which was difficult to determine directionality. Pt was treated with a right-sided modified Silvino maneuver. Pt complained of symptoms in the first and third position, which is normally indicative of a successful treatment. Further positional testing was negative. Also discussed with pt his reports of three episodes of severe, spontaneous vertigo lasting 6+ hours and causing nausea and vomiting. Difficult to perform differential diagnosis when pt is asymptomatic, but with the spacing between episodes ( ~once every 18 months), severity of symptoms, and history of tinnitus and hearing loss, pt initial symptoms strongly suggestive of possible Meniere's disease. Discussed this possibility with pt and recommended he request referral to ENT, however pt decided he would prefer to just wait and see if it happened again. Due to time spend with assessment and treatment of vestibular complaints, minimal assessment of his hip pain was performed today. Pt should benefit from further assessment and treatment of his hip, as well as continued vestibular rehab as needed for BPPV. Pt was educated on BPPV, expectations for treatment, possible recurrence (BPPV has a ~50% recurrence rate in the five years following treatment), and post-Silvino restrictions. Physical Therapy Plan Frequency and Duration Frequency of Treatment 2x/Week Duration of Treatment Two months Plan of Care Start Date 08/11/21 Plan of Care End Date 10/11/21 Therapeutic Interventions Therapeutic Interventions Balance Training,Canalithic Repositioning,Gait Training, Home Exercise Program,Joint Mobilizations,Manual Therapy, Neuromuscular Re-education, Patient/Caregiver Education, Self-Care/Home Management,Soft Tissue Mobilization, Therapeutic Activities, Therapeutic Exercises, Vestibular Rehabilitation Modalities Cold Pack/Ice Massage,Hot Packs,Ultrasound Next Visit Focus/Plan Next Note Type Treatment Note Next Visit Plan Follow-up with vestibular rehabilitation, positional testing, CRM. Assessment of right hip pain.
--- NOTE | 2021-08-11 12:42 | PT.OPPOC ---
Physical, Occupational & Speech Therapy At [facility] Current Diagnoses Benign paroxysmal vertigo, unspecified ear (08/11/21) Pain in right hip (08/11/21) Dizziness and giddiness (08/11/21) Visit Care Team Role Provider Type Buck Baca MD Attending Provider Physician Family Provider Primary Care Provider Referring Provider Specialty: [facility] Practice Address: [facility] [place], [facility] Email: [email or web address] Plan Of Care PT-OP-T Assessment and Plan Start: 08/11/21 12:13 Freq: Status: Active Protocol: Document 08/11/21 11:15 DCW (Rec: 08/11/21 12:39 DCW [id number]) Physical Therapy Assessment Rehab Potential Rehabilitation Potential Good Evaluation Complexity Number of Personal Factors/Comorbidities 3 or More Number of Body Systems Impaired 3 Clinical Presentation at Evaluation Unstable Impairments Impairments Functional Activities, Functional Mobility,Gait,Pain, ROM,Soft Tissue Mobility, Strength,Vestibular Goals Three Impairment Pt experiences increased difficulty donning socks due to right hip pain Grounds Foreman Goal (LTG) Pt to don/doff socks with no increased pain. LTG Duration 10/11/21 Two Impairment Positive B López-Hallpike Short Term Goal (STG) Pt to present with entirely negative positional testing STG Duration 09/10/21 One Impairment Pt experiences vertigo with bed mobilty Grounds Foreman Goal (LTG) Pt to report no vertigo with bed mobility for one entire week LTG Duration 10/11/21 Assessment Summary Assessment During right López-Hallpike test , pt complained of vertigo and demonstrated mild up-beating, torsional nystagmus lasting approximately 10 seconds, consistent with diagnosis of left/right-sided posterior canal BPPV, canalithiasis-type . Additionally, during left López-Hallpike test, pt complained of vertigo and demonstrated very mild, nearly impossible to see nystagmus, which was difficult to determine directionality. Pt was treated with a right-sided modified Silvino maneuver. Pt complained of symptoms in the first and third position, which is normally indicative of a successful treatment. Further positional testing was negative. Also discussed with pt his reports of three episodes of severe, spontaneous vertigo lasting 6+ hours and causing nausea and vomiting. Difficult to perform differential diagnosis when pt is asymptomatic, but with the spacing between episodes ( ~once every 18 months), severity of symptoms, and history of tinnitus and hearing loss, pt initial symptoms strongly suggestive of possible Meniere's disease. Discussed this possibility with pt and recommended he request referral to ENT, however pt decided he would prefer to just wait and see if it happened again. Due to time spend with assessment and treatment of vestibular complaints, minimal assessment of his hip pain was performed today. Pt should benefit from further assessment and treatment of his hip, as well as continued vestibular rehab as needed for BPPV. Pt was educated on BPPV, expectations for treatment, possible recurrence (BPPV has a ~50% recurrence rate in the five years following treatment), and post-Silvino restrictions. Physical Therapy Plan Frequency and Duration Frequency of Treatment 2x/Week Duration of Treatment Two months Plan of Care Start Date 08/11/21 Plan of Care End Date 10/11/21 Therapeutic Interventions Therapeutic Interventions Balance Training,Canalithic Repositioning,Gait Training, Home Exercise Program,Joint Mobilizations,Manual Therapy, Neuromuscular Re-education, Patient/Caregiver Education, Self-Care/Home Management,Soft Tissue Mobilization, Therapeutic Activities, Therapeutic Exercises, Vestibular Rehabilitation Modalities Cold Pack/Ice Massage,Hot Packs,Ultrasound Next Visit Focus/Plan Next Note Type Treatment Note Next Visit Plan Follow-up with vestibular rehabilitation, positional testing, CRM. Assessment of right hip pain. Plan of Care Dates Plan of Care Start Date 08/11/21 Plan of Care End Date 10/11/21 Electronically Signed by: Denny Godfrey, PT 08/11/21 0885 Please Sign and Return: I have reviewed this Plan of Care and certify that the skilled therapy services above are required to meet the patient?s needs. Physician Signature Date Printed Name and Credentials Clinical Instructor Signature Printed Name and Credentials
--- NOTE | 2021-08-15 11:59 | PT.OTN ---
Current Diagnoses Benign paroxysmal vertigo, unspecified ear (08/15/21) Pain in right hip (08/15/21) Dizziness and giddiness (08/15/21) Physical Therapy Treatment Note PT-OP-A Visit Information Start: 08/11/21 12:13 Freq: Status: Active Protocol: Document 08/15/21 11:15 DCW (Rec: 08/15/21 11:20 DCW [id number]) Out-Patient Physical Therapy Visit Information Visit Information Visit Type Treatment Note Visit Start Time 11:15 Visit Stop Time 12:00 Total Visit Minutes 45 Visit Number 2 Number of BELT REPAIRER Visits 0 Evaluation Information Evaluation Date 08/11/21 PT-OP-B Current Condition Start: 08/11/21 12:13 Freq: Status: Active Protocol: Document 08/11/21 11:15 DCW (Rec: 08/11/21 12:39 DCW [id number]) Current Condition History of Current Condition Onset Date One year history Current Complaints Positional vertigo, right anterior hip pain History of Current Condition Pt is a 65 year old male complaining of a one year history of motion-induced vertigo. Pt reports episodes last 15-20 seconds. Symptoms are provoked by rolling in bed or getting on the ground to work on his car. Additionally, pt reports a history of three episodes of completely different vertigo which is spontaneous and lasts 6-10 hours, resulting in nausea/ vomiting, and leaves him bed bound during the episode. Pt notes that he has had three episodes over the last four years, the most recent being six months ago. Pt noted multiple times that these symptoms are completely different than his current positional symptoms. Pt does have a history of hearing loss , wears bilateral hearing aides, and has a years-long history of tinnitus. Pt denies recent hearing changes, diplopia, dysarthria, discoordination, or decreased mentation/consciousness. Pt denies hx of diabetes, head trauma, seizure, migraines, back/neck problems, CVA, anxiety/panic disorders, or depression. Pt has a history of both HTN and high cholesterol, both well controlled by medication. Pt also had a pacemaker implanted last year. Pt additionally reports a prior history of ETOH abuse, but has not had a drink in 22 years. Pt also comes to PT today complaining of anterior right hip pain, especially with increased flexion when trying to put his socks on in the morning. Pt notes it is like that's just all the motion I have, I've been thinking about just stopping wearing socks. Treatment Goals Patient/Caregiver Goals Eliminate positional vertigo, determine cause of other vertigo symptoms, decrease hip pain PT-OP-C Subjective Start: 08/11/21 12:13 Freq: Status: Active Protocol: Document 08/15/21 11:15 DCW (Rec: 08/15/21 11:20 DCW [id number]) OP-PT Subjective Patient Comments Patient Comments Pt notes dizziness is gone, we did it. Although I still keep expecting it to happen. PT-OP-K Range of Motion Start: 08/11/21 12:13 Freq: Status: Active Protocol: Document 08/15/21 11:15 DCW (Rec: 08/15/21 11:59 DCW [id number]) Hip Goniometric Range of Motion Hip Right Passive Hip ROM WFL Yes Testing Position Supine Flexion w/Knee Flexed 120 Straight Leg Raise 65 PT-OP-L Special Tests Start: 08/11/21 12:13 Freq: Status: Active Protocol: Document 08/15/21 11:15 DCW (Rec: 08/15/21 11:59 DCW [id number]) Special Tests Hip Special Tests Straight Leg Raise Test Results Negative Scour Test Test Results Negative Piriformis Test Results Negative FRANCISCO Test Results R Positive Anterior Labral Test Test Results Negative PT-OP-M Strength Start: 08/11/21 12:13 Freq: Status: Active Protocol: Document 08/15/21 11:15 DCW (Rec: 08/15/21 11:59 DCW [id number]) Hip Strength Hip Manual Muscle Testing Bilateral Flexion (L2) 5 Normal Extension (S1) 5 Normal Abduction 5 Normal Adduction 5 Normal External Rotation 5 Normal Internal Rotation 5 Normal PT-OP-O Vestibular Start: 08/11/21 12:13 Freq: Status: Active Protocol: Document 08/15/21 11:15 DCW (Rec: 08/15/21 11:20 DCW [id number]) Vestibular Assessment Positional Testing Concord-Hallpike Negative Left,Negative Right PT-OP-Q Treatments Start: 08/11/21 12:13 Freq: Status: Active Protocol: Document 08/15/21 11:15 DCW (Rec: 08/15/21 11:57 DCW [id number]) Manual Therapy Treatment Other Other Manual Treatments Positional testing, hip testing PT-OP-T Assessment and Plan Start: 08/11/21 12:13 Freq: Status: Active Protocol: Document 08/15/21 11:15 DCW (Rec: 08/15/21 11:57 [facility] [id number]) Physical Therapy Assessment Impairments Impairments Functional Activities, Functional Mobility,Gait,Pain, ROM,Soft Tissue Mobility, Strength,Vestibular Goals Three Impairment Pt experiences increased difficulty donning socks due to right hip pain Longterm Goal (LTG) Pt to don/doff socks with no increased pain. LTG Duration 10/11/21 Two Impairment Positive B Concord-Hallpike Short Term Goal (STG) Pt to present with entirely negative positional testing STG Duration Met One Impairment Pt experiences vertigo with bed mobilty Full Time Goal (LTG) Pt to report no vertigo with bed mobility for one entire week LTG Duration 10/11/21 Assessment Summary Assessment Pt positional testing entirely negative today. Hip pain appears to be most likely caused by osteoarthritis/DJD. Fortunately, pt displays no other deficiencies, ROM is great, other than pain with combined flexion/ER, good 5/5 muscle strength in all planes. Pt currently very active, does ~1 hr of cardio on most days, no real areas of limitations to truely be addressed by skilled PT. Recommend pt continue current daily activities, may benefit from referral for x-ray imaging to rule in/out arthritis. Unlikely to benefit much from continued therapy, but will keep pt's case open for now in case follow-up recommends further PT assessment/treatment. Physical Therapy Plan Frequency and Duration Frequency of Treatment 2x/Week Duration of Treatment Two months Plan of Care Start Date 08/11/21 Plan of Care End Date 10/11/21 Therapeutic Interventions Therapeutic Interventions Balance Training,Canalithic Repositioning,Gait Training, Home Exercise Program,Joint Mobilizations,Manual Therapy, Neuromuscular Re-education, Patient/Caregiver Education, Self-Care/Home Management,Soft Tissue Mobilization, Therapeutic Activities, Therapeutic Exercises, Vestibular Rehabilitation Modalities Cold Pack/Ice Massage,Hot Packs,Ultrasound Next Visit Focus/Plan Next Note Type Treatment Note Next Visit Plan Follow-up with vestibular rehabilitation, positional testing, CRM. Assessment of right hip pain.
--- NOTE | 2021-12-22 10:01 | PT.OPDS ---
Current Diagnoses Benign paroxysmal vertigo, unspecified ear (08/15/21) Pain in right hip (08/15/21) Dizziness and giddiness (08/15/21) Visit Care Team Role Provider Type Buck Baca MD Attending Provider Physician Family Provider Primary Care Provider Referring Provider Specialty: Family Practice Address: [address] [place], [address] Email: [email or web address] Visit Number Visit Number 2 Discharge Summary PT-OP-B Current Condition Start: 08/11/21 12:13 Freq: Status: Active Protocol: Document 08/11/21 11:15 DCW (Rec: 08/11/21 12:39 DCW [id number]) Current Condition History of Current Condition Onset Date One year history Current Complaints Positional vertigo, right anterior hip pain History of Current Condition Pt is a 65 year old male complaining of a one year history of motion-induced vertigo. Pt reports episodes last 15-20 seconds. Symptoms are provoked by rolling in bed or getting on the ground to work on his car. Additionally, pt reports a history of three episodes of completely different vertigo which is spontaneous and lasts 6-10 hours, resulting in nausea/ vomiting, and leaves him bed bound during the episode. Pt notes that he has had three episodes over the last four years, the most recent being six months ago. Pt noted multiple times that these symptoms are completely different than his current positional symptoms. Pt does have a history of hearing loss , wears bilateral hearing aides, and has a years-long history of tinnitus. Pt denies recent hearing changes, diplopia, dysarthria, discoordination, or decreased mentation/consciousness. Pt denies hx of diabetes, head trauma, seizure, migraines, back/neck problems, CVA, anxiety/panic disorders, or depression. Pt has a history of both HTN and high cholesterol, both well controlled by medication. Pt also had a pacemaker implanted last year. Pt additionally reports a prior history of ETOH abuse, but has not had a drink in 22 years. Pt also comes to PT today complaining of anterior right hip pain, especially with increased flexion when trying to put his socks on in the morning. Pt notes it is like that's just all the motion I have, I've been thinking about just stopping wearing socks. Treatment Goals Patient/Caregiver Goals Eliminate positional vertigo, determine cause of other vertigo symptoms, decrease hip pain PT-OP-C Subjective Start: 08/11/21 12:13 Freq: Status: Active Protocol: Document 08/15/21 11:15 DCW (Rec: 08/15/21 11:20 DCW [id number]) OP-PT Subjective Patient Comments Patient Comments Pt notes dizziness is gone, we did it. Although I still keep expecting it to happen. PT-OP-K Range of Motion Start: 08/11/21 12:13 Freq: Status: Active Protocol: Document 08/15/21 11:15 DCW (Rec: 08/15/21 11:59 DCW [id number]) Hip Goniometric Range of Motion Hip Right Passive Hip ROM WFL Yes Testing Position Supine Flexion w/Knee Flexed 120 Straight Leg Raise 65 PT-OP-L Special Tests Start: 08/11/21 12:13 Freq: Status: Active Protocol: Document 08/15/21 11:15 DCW (Rec: 08/15/21 11:59 DCW [id number]) Special Tests Hip Special Tests Straight Leg Raise Test Results Negative Scour Test Test Results Negative Piriformis Test Results Negative FRANCISCO Test Results R Positive Anterior Labral Test Test Results Negative PT-OP-M Strength Start: 08/11/21 12:13 Freq: Status: Active Protocol: Document 08/15/21 11:15 DCW (Rec: 08/15/21 11:59 DCW [id number]) Hip Strength Hip Manual Muscle Testing Bilateral Flexion (L2) 5 Normal Extension (S1) 5 Normal Abduction 5 Normal Adduction 5 Normal External Rotation 5 Normal Internal Rotation 5 Normal PT-OP-O Vestibular Start: 08/11/21 12:13 Freq: Status: Active Protocol: Document 08/15/21 11:15 DCW (Rec: 08/15/21 11:20 DCW [id number]) Vestibular Assessment Positional Testing Anderson-Hallpike Negative Left,Negative Right PT-OP-T Assessment and Plan Start: 08/11/21 12:13 Freq: Status: Active Protocol: Document 12/22/21 10:00 DCW (Rec: 12/22/21 10:01 DCW [id number]) Physical Therapy Assessment Assessment Summary Assessment Pt case was to be held open for one month in case of recurrence of BPPV. Pt has not been seen for four months, will be discharged from skilled PT at this time Physical Therapy Plan Discharge Physical Therapy Discharge Reasons No Longer Attending PT
== END 2021-12-25 13:20 ==
LOC: PHYS 11:15
PROVIDERS: Family Provider Family Medicine; PCP Family Medicine; Referring Provider Family Medicine; Visit Provider Family Medicine
DX: H81.10 Benign paroxysmal vertigo, unspecified ear (principal); M25.551 Pain in right hip
CPT/HCPCS: 95992; 97140; 97162

== ENCOUNTER → 2021-08-17 11:23 | Outpatient (CLI) | payer MEDICARE, SELFPAY ==
--- NOTE | 2021-08-17 | DI.RAD.S_ITS ---
PROCEDURE: XR HIP W PEL IF DONE RT 2V INDICATIONS: Pain in right hip TECHNIQUE: 2 views of the hip were acquired. COMPARISON: None. FINDINGS: Bones: No fractures or dislocations. No suspicious bony lesions. The visualized pelvic ring appears intact. Moderate right acetabular joint space narrowing. Femoral head is appropriate contour. No dislocation. Small marginal osteophytes. Mild left-sided acetabular joint space narrowing. Soft tissues: No suspicious soft tissue calcifications or masses. IMPRESSION: Moderate right hip osteoarthritis Approved by: Giovanni Love M.D. on 08/17/2021 at 13:16
== END ==
PROVIDERS: Family Provider Family Medicine; PCP Family Medicine; Referring Provider Family Medicine; Visit Provider Family Medicine
DX: M16.11 Unilateral primary osteoarthritis, right hip (principal); M25.551 Pain in right hip
CPT/HCPCS: 73502

== ENCOUNTER → 2021-12-29 09:36 | Outpatient (CLI) | payer MEDICARE, SELFPAY ==
[2021-12-29 10:44] LABS: Add Manual Diff / Slide Review NO; Basophils Absolute Auto 100 /uL (0-100); Basophils Percent Auto 0.9 % (0-2); Eosinophils Absolute Auto 200 /uL (0-450); Eosinophils Percent Auto 1.9 % (2-4); Hematocrit 36.3 % (41-53); Hemoglobin 12.5 g/dL (13.5-17.5); Lymphocytes Absolute Auto 1600 /uL (1100-4500); Lymphocytes Percent Auto 20.4 % (25-40); Mean Corpuscular HGB Conc 34.4 % (30-36); Mean Corpuscular Hemoglobin 29.7 PG (26-34); Mean Corpuscular Volume 86.3 fL (80-100); Monocytes Absolute Auto 800 /uL (0-900); Monocytes Percent Auto 10.8 % (3-14); Neutrophils Absolute Auto 5200 /uL (1500-7000); Platelet Count 355 X10^3/uL (150-400); Red Blood Cell Count 4.21 X10^6/uL (4.5-5.9); Red Cell Distribution Width 13.5 % (11.6-14.8); White Blood Cell Count 7.8 X10^3/uL (4.5-11.0)
== END ==
PROVIDERS: Family Provider Family Medicine; PCP Family Medicine; Referring Provider Orthopaedic Surgery; Visit Provider Orthopaedic Surgery
DX: Z01.818 Encounter for other preprocedural examination (principal); Z01.812 Encounter for preprocedural laboratory examination
CPT/HCPCS: 36415; 85025; 93005

== ENCOUNTER 2022-01-01 11:56 | Day surgery (SDC) | payer MEDICARE, SELFPAY ==
[2021-12-29 10:10] VITALS: BMI 32.5
[2022-01-01] VITALS (7 sets, daily range): BP systolic 117–122; BP diastolic 66–73; PULSE 58–78; RESP 12–18; TEMP 36.2–37.2; O2SAT 96–99; BMI 31.0
[2022-01-01 08:39] LABS: COVID19 -Nasal RAPID Negative (Negative)
[2022-01-01] MEDS: LACTATED RINGERS 1,000 ML 42 ML IV ×2 (12:51→15:50)
[2022-01-01] MEDS: ACETAMINOPHEN 325 MG TABLET 975 MG PO (12:52)
--- NOTE | 2022-01-01 14:41 | PM.PREOP ---
Pre-operative Note COVID-19 COVID-19 status: Negative Interval Note History & Physical reviewed/Exam performed by Physician: Yes Changes to H&P: No
--- NOTE | 2022-01-01 14:43 | P.OP_ITS ---
Operative Date/Time/Diagnoses Date of procedure: 01/01/22 Time of procedure: 15:30 Pre-op diagnosis: Left proximal hamstring rupture Post-op diagnosis: same Procedure & Clinicians Procedure: Left proximal hamstrings repair Same procedure as scheduled: Yes Indications: This is a 66-year-old who was water skiing and noted the acute onset of severe left hip pain. He felt a rip and had findings consistent with a proximal hamstring tear. MRI scan showed evidence of a 2 tendon proximal hamstrings tear with about 5 cm of retraction. Surgeon: Belgica Harley Athletic Instructor: Ashu Daniels Anesthesia Type: General Operative Notes Findings: Complete proximal hamstrings rupture, adequate repair Closure Type: primary Specimen(s): none sent Prosthetic devices, grafts, tissues, transplants, or devices: Arthrex suture anchor with multiple FiberWires Estimated Blood Loss (mL): 100 Blood products transfused: none Procedure in detail: Patient is brought to the operating room. He was carefully transferred to the table in a prone position after induction of a general anesthesia. He was meticulously positioned on chest rolls. His knee was bent up. His left lower extremity was prepped and draped in standard sterile fashion. He was given IV antibiotics. A time-out was performed. An incision was made along the gluteal crease. Dissection was carried out through skin and subcutaneous tissues. Dissection was meticulously carried out down through the fat. The fascia of the gluteal muscle and gluteus juventino was carefully identified. The gluteus juventino was retracted proximally. Dissection was then further carried out down along the medial aspect of the thigh. The ischial tuberosity was palpable. We dissected down to the level of the ischial tuberosity. The fascia of the hamstring was noted to be intact. Carefully dissected around that to confirm that it was isolated hamstring fascia. And then incised the hamstring fascia. The tendon was noted to be were prior a retracted distally about 5-7 cm. A small residual portion was noted to be intact of the most lateral aspect of the hamstring. The ischial tuberosity was carefully freshened using a Zamora and a curette to stimulate bony healing. FiberWire was meticulously woven through the hamstrings tendon with a Krackow whip stitch. Several fiber wires were placed. An Arthrex suture anchor 4.7 was then placed I drilled for it tapped the bone was quite hard and it definitely required a tap. The FiberWire was then pulled through the suture anchor and meticulously tightened down to the tissue which was then carefully pulled down to the ischium. Several additional sutures were used to further reinforce the repair. Acceptable quality repair and good presybeterian of the anatomic insertion was achieved. Marcaine with Exparel was meticulously injected. The wound was meticulously irrigated with normal saline. Retractors used were Homans and multiple Mcnamara retractors. The subcutaneous tissue was repaired with interrupted Vicryl. The skin was repaired with a irwin stitch. Glue was used as well as an Aquacel. The patient was placed in a left leg brace which prevented full knee extension by allowing him from 60? of fl exion to full flexion. He tolerated the procedure well he was transferred recovery room in satisfactory condition. Complications: none Post-operative Condition: stable Disposition: Acute Care Plan for aftercare: Use brace at all times. Avoid knee extension and simultaneous hip flexion. Okay to remove brace to shower as long as knee is kept bent and hip is not flexed. Wound check in 10-14 days.
[2022-01-01] MEDS: APREPITANT 40 MG CAPSULE PO (14:48)
[2022-01-01] MEDS: CEFAZOLIN 2 GM/100 ML PREMIX 100 ML IV (15:01)
--- NOTE | 2022-01-01 15:45 | SUR.OPER ---
Prone on padded OR bed, head in foam head support, gel chest rolls, gel pad under knees, pillow under lower legs, toes free of pressure, arms secured on padded arm boards at <90 degrees abduction. Safety belt at thigh.
--- NOTE | 2022-01-01 15:47 | SUR.OPER ---
Pacemaker with magnet taped on chest for duration of case
[2022-01-01] MEDS: BUPIVACAINE LIPOSOME 266 MG/20 ML VIAL INJ (15:52)
[2022-01-01] MEDS: BUPIVACAINE 0.5% W/ EPI (PF) 30 ML VIAL INJ (15:54)
[2022-01-01] MEDS: hydrOXYzine pamoate 25 MG CAPSULE PO (18:19)
[2022-01-01] MEDS: OXYCODONE IR 5 MG TABLET PO (18:19)
--- NOTE | 2022-01-01 18:54 | SUR.PHASEII ---
1845: Pt A&Ox4, denies any distress, dressing c/d/i, VSS, has voided, and ready to discharge home. Discharge instructions reviewed with spouse and patient with time allowed for questions. IV DC'd intact, dressing applied. Pt left unit via w/c with all personal belongings including phone, glasses, CPAP, clothing, ring, and brace.
== END 2022-01-01 18:45 | disposition home or self-care (01) ==
PROVIDERS: Family Provider Family Medicine; PCP Family Medicine; Referring Provider Orthopaedic Surgery; Visit Provider Orthopaedic Surgery
PROC: (CPT 27385; principal; 2022-01-01 13:30)
DX: S76.312A Strain of muscle, fascia and tendon of the posterior muscle group at thigh level, left thigh, initial encounter (principal); I48.91 Unspecified atrial fibrillation; I10 Essential (primary) hypertension; E78.5 Hyperlipidemia, unspecified; G47.33 Obstructive sleep apnea (adult) (pediatric); X58.XXXA Exposure to other specified factors, initial encounter; Z79.01 Long term (current) use of anticoagulants; Z95.0 Presence of cardiac pacemaker; Z20.822 Contact with and (suspected) exposure to COVID-19
CPT/HCPCS: 27385; 87635; C9803; C9290; J0330; J0690; J1100; J2250; J2405; J2704; J3010; J8501

== ENCOUNTER 2022-04-26 09:45 | Outpatient (RCR) | payer MEDICARE, SELFPAY ==
--- NOTE | 2022-01-16 15:15 | PT.OPPOC ---
Physical, Occupational & Speech Therapy At [facility] Current Diagnoses Stiffness of left hip, not elsewhere classified (01/16/22) Stiffness of left knee, not elsewhere classified (01/16/22) Other abnormalities of gait and mobility (01/16/22) Strain of muscle, fascia and tendon of the posterior muscle group at thigh level, left thigh, initial encounter (01/16/22) Visit Care Team Role Provider Type Buck Baca MD Family Provider Physician Primary Care Provider Specialty: Family Practice Address: [address] [place], [address] Email: [email or web address] Attending Provider Advanced Human Relations Professor Referring Provider Specialty: Orthopedics Orthopedic Surgery Address: [address] [place] [address], [address] Email: [email or web address] Plan Of Care PT-OP-T Assessment and Plan Start: 01/16/22 17:34 Freq: Status: Active Protocol: Document 01/16/22 14:30 DCW (Rec: 01/17/22 08:51 DCW [id number]) Physical Therapy Assessment Rehab Potential Rehabilitation Potential Good Evaluation Complexity Number of Personal Factors/Comorbidities 1-2 Number of Body Systems Impaired 3 Clinical Presentation at Evaluation Unstable Impairments Impairments Functional Activities, Functional Mobility,Gait,Pain, ROM,Strength,Tone Goals Two Impairment Pt unable to walk/hike is usual five miles per day Halfway Goal (LTG) Pt to progress to full knee extension, following post-op protocol, in order to normalize gait pattern in order for pt to return to walking or hiking at least five miles a day, which is his preferred leisure activity. LTG Duration 03/18/22 One Impairment Pt does not have an appropriate home exercise program Short Term Goal (STG) Pt to be independent and compliant with an appropriate HEP STG Duration 02/15/22 Assessment Summary Assessment Pt presents to skilled therapy two weeks s/p left hamstring rupture repair. Pt currently uses knee brace to limit extension to 60?, per post-op protocol. Pt struggling with brace, which slides down his leg despite multiple adjustments from both his ortho office and this PT. This results in increasing extension ROM to 30? while standing and walking. Brace adjusted to limit to 70?, which actually appears to help restrict him correctly to 60? while standing. Pt is difficult to limit to reasonable activities, already asking about being able to ride his motorcycle and is hoping to talk his surgeon into allowing him to return to water skiing. No pain to speak of at the moment, although some soreness at his incision site. Pt should benefit from skilled therapy focusing on improving gait, mobility, ROM, and strength while following post-op protocol. Physical Therapy Plan Frequency and Duration Frequency of Treatment 2x/Week Duration of Treatment Two months Plan of Care Start Date 01/16/22 Plan of Care End Date 03/18/22 Therapeutic Interventions Therapeutic Interventions Aquatic Therapy,Gait Training, Home Exercise Program,Joint Mobilizations,Manual Therapy, Orthotic/Prosthetic Management ,Patient/Caregiver Education, Self-Care/Home Management,Soft Tissue Mobilization, Therapeutic Activities, Therapeutic Exercises Modalities Cold Pack/Ice Massage,Electric Stimulation,Hot Packs, Ultrasound Next Visit Focus/Plan Next Note Type Treatment Note Next Visit Plan Gentle strengthening, hip mobility Plan of Care Dates Plan of Care Start Date 01/16/22 Plan of Care End Date 03/18/22 Electronically Signed by: Denny Godfrey, PT 01/17/22 0852 If you are in agreement with this Plan of Care, please return a signed and dated copy. I have reviewed this Plan of Care and certify that the skilled therapy services above are required to meet the patient?s needs. Physician Signature Date Printed Name and Credentials Clinical Instructor Signature Printed Name and Credentials
--- NOTE | 2022-01-16 15:15 | PT.OIE ---
Current Diagnoses Stiffness of left hip, not elsewhere classified (01/16/22) Stiffness of left knee, not elsewhere classified (01/16/22) Other abnormalities of gait and mobility (01/16/22) Strain of muscle, fascia and tendon of the posterior muscle group at thigh level, left thigh, initial encounter (01/16/22) Past Medical History (Last Updated 01/01/22 @ 12:22 by Ambar Palmer, WAYNE) Alcoholic Anesthesia complication Atrial fibrillation Healthy adult History of cardioversion HLD (hyperlipidemia) HTN (hypertension) WONG (obstructive sleep apnea) Pacemaker (2020) Perianal abscess PONV (postoperative nausea and vomiting) Past Surgical History (Last Updated 01/01/22 @ 12:21 by Ambar Palmer, WAYNE) H/O cardiac radiofrequency ablation H/O elbow surgery History of back surgery History of bilateral carpal tunnel release History of surgery Hx of colonoscopy (01/2020) Hx of shoulder surgery No pertinent past surgical history Visit Care Team Role Provider Type Buck Baca MD Family Provider Physician Primary Care Provider Specialty: Family Practice Address: [address] [place] [address] [facility] [[email or web address] [place], [address] Email: [email or web address] Emma Loza PA-C Attending Provider Advanced Census Enumerator Referring Provider Specialty: Orthopedics Orthopedic Surgery Address: [address] [place] [address], [address] Email: [email or web address] Physical Therapy Initial Evaluation PT-OP-A Visit Information Start: 01/16/22 17:34 Freq: Status: Active Protocol: Document 01/16/22 14:30 DCW (Rec: 01/16/22 17:52 DCW [id number]) Out-Patient Physical Therapy Visit Information Visit Information Visit Type Initial Evaluation Visit Start Time 14:30 Visit Stop Time 15:10 Total Visit Minutes 40 Visit Number 1 Number of COLOR TECHNICIAN Visits 0 Evaluation Information Evaluation Date 01/16/22 PT-OP-B Current Condition Start: 01/16/22 17:34 Freq: Status: Active Protocol: Document 01/16/22 14:30 DCW (Rec: 01/16/22 17:52 DCW [id number]) Current Condition History of Current Condition Onset Date One month Current Complaints 2 weeks s/p Hamstring tear repair History of Current Condition Pt is a 66 year old male presenting two week s/p left proximal hamstring rupture repair. [facility] [place]. Pt felt a pop in his left hamstring, and was seen in a local ED. Was diagnosed with a strain. Pt continued to have pain, was scheduled for an MRI on 12/25/21 and PT on 12/26/21. Pt arrived at his initial PT eval with his MRI results, which stated complete tear of the Hamstring tendons with 4 cm retraction of the muscle. At that time, it was decided to cancel his PT eval until he was seen by an Ortho. Pt was seen soon afterward and underwent surgical repair 01/01. Referral notes limited ROM to not extend further than 60?, and to keep knee immobilizer on at all times. Treatment Goals Patient/Caregiver Goals Return to riding his motorcycle, get back to hiking and walking 5+ miles a day, and to be able to exercise enough to get rid of his weight gain that has occurred since initial injury. PT-OP-C Subjective Start: 01/16/22 17:34 Freq: Status: Active Protocol: Document 01/16/22 14:30 DCW (Rec: 01/16/22 17:52 DCW [id number]) OP-PT Subjective Patient Comments Patient Comments It's a little sore at the surgical site, but nothing really too bad. Patient Reported Progress Improving Patient Questionnaires Lower Extremity Functional Scale LEFS Score 18/80 = 22.5% LEFS Impairment 60 to 79% Impaired (Score 17- 31) OP-PT Pain Assessment Location Left Distal Hip Intensity 4 Scale Used Numeric (0 - 10) PT-OP-E Functional Tests Start: 01/17/22 08:37 Freq: Status: Active Protocol: Document 01/16/22 14:30 DCW (Rec: 01/17/22 08:38 DCW [id number]) Functional Tests Timed Up and Go (TUG) Score 7.99 Comments Three-trial average (9.10, 7. 16, 7.71) TUG Impairment Rating 0% Impaired (Score 10) PT-OP-F Manual Assessment Start: 01/16/22 17:34 Freq: Status: Active Protocol: Document 01/16/22 14:30 DCW (Rec: 01/17/22 08:37 DCW [id number]) Manual Assessments Joint Mobility Assessment Joint Mobility Assessment Knee joint mobility limited to max 60? extension. Pt's brace slides down his leg despite multiple attempts to adjust, resulting in his knee extending to 30? when standing due to incorrect fit. Extension restriction on brace switched to 70?, which better allows pt to maintain ROM precautions. PT-OP-G Mobility & Gait Start: 01/16/22 17:34 Freq: Status: Active Protocol: Document 01/16/22 14:30 DCW (Rec: 01/17/22 08:37 DCW [id number]) OP Gait Assessment Gait Gait Assistance Required: Independent Assistive Devices Assistive Device None Orthotic/Prosthetic Devices or Brace: Yes Gait Deviations General Gait Pattern Antalgic Factors Limiting Gait Function Factors Limiting Gait Function Limited Range of Motion Comments Gait Comments Pt ambulates with significant limp secondary to brace limiting extension. Pt not using any crutches, discussed potential of his current ambulation technique causing hip and back pain, pt unsure if he would like to use crutches or not. PT-OP-K Range of Motion Start: 01/16/22 17:34 Freq: Status: Active Protocol: Document 01/16/22 14:30 DCW (Rec: 01/17/22 08:37 DCW [id number]) Knee Goniometric Range of Motion Knee Left Knee ROM WFL No Patient Position Sitting Flexion Active (degrees) 118 Extension Active (degrees) 60 Comments Extension limited to 60? with brace PT-OP-Q Treatments Start: 01/16/22 17:34 Freq: Status: Active Protocol: Document 01/16/22 14:30 DCW (Rec: 01/16/22 17:54 DCW [id number]) Therapeutic Exercises Sitting Exercises Heel slide Sitting Exercise Name Heel slide Side left HS set Sitting Exercise Name Hamstring set Side left Reps/Minutes Gentle 5 hold Glute set Sitting Exercise Name Glute set Side bilateral Reps/Minutes 5 hold Standing Exercises Hip extension Standing Exercise Name Hip extension Side left PT-OP-T Assessment and Plan Start: 01/16/22 17:34 Freq: Status: Active Protocol: Document 01/16/22 14:30 DCW (Rec: 01/17/22 08:51 DCW [id number]) Physical Therapy Assessment Rehab Potential Rehabilitation Potential Good Evaluation Complexity Number of Personal Factors/Comorbidities 1-2 Number of Body Systems Impaired 3 Clinical Presentation at Evaluation Unstable Impairments Impairments Functional Activities, Functional Mobility,Gait,Pain, ROM,Strength,Tone Goals Two Impairment Pt unable to walk/hike is usual five miles per day Dimmer Board Operator Goal (LTG) Pt to progress to full knee extension, following post-op protocol, in order to normalize gait pattern in order for pt to return to walking or hiking at least five miles a day, which is his preferred leisure activity. LTG Duration 03/18/22 One Impairment Pt does not have an appropriate home exercise program Short Term Goal (STG) Pt to be independent and compliant with an appropriate HEP STG Duration 02/15/22 Assessment Summary Assessment Pt presents to skilled therapy two weeks s/p left hamstring rupture repair. Pt currently uses knee brace to limit extension to 60?, per post-op protocol. Pt struggling with brace, which slides down his leg despite multiple adjustments from both his ortho office and this PT. This results in increasing extension ROM to 30? while standing and walking. Brace adjusted to limit to 70?, which actually appears to help restrict him correctly to 60? while standing. Pt is difficult to limit to reasonable activities, already asking about being able to ride his motorcycle and is hoping to talk his surgeon into allowing him to return to water skiing. No pain to speak of at the moment, although some soreness at his incision site. Pt should benefit from skilled therapy focusing on improving gait, mobility, ROM, and strength while following post-op protocol. Physical Therapy Plan Frequency and Duration Frequency of Treatment 2x/Week Duration of Treatment Two months Plan of Care Start Date 01/16/22 Plan of Care End Date 03/18/22 Therapeutic Interventions Therapeutic Interventions Aquatic Therapy,Gait Training, Home Exercise Program,Joint Mobilizations,Manual Therapy, Orthotic/Prosthetic Management ,Patient/Caregiver Education, Self-Care/Home Management,Soft Tissue Mobilization, Therapeutic Activities, Therapeutic Exercises Modalities Cold Pack/Ice Massage,Electric Stimulation,Hot Packs, Ultrasound Next Visit Focus/Plan Next Note Type Treatment Note Next Visit Plan Gentle strengthening, hip mobility
--- NOTE | 2022-01-19 14:45 | PT.OTN ---
Current Diagnoses Stiffness of left hip, not elsewhere classified (01/31/22) Stiffness of left knee, not elsewhere classified (01/31/22) Other abnormalities of gait and mobility (01/31/22) Strain of muscle, fascia and tendon of the posterior muscle group at thigh level, left thigh, initial encounter (01/31/22) Physical Therapy Treatment Note PT-OP-A Visit Information Start: 01/16/22 17:34 Freq: Status: Active Protocol: Document 01/19/22 13:43 NBM (Rec: 01/19/22 14:34 NBM [id number]) Out-Patient Physical Therapy Visit Information Visit Information Visit Type Treatment Note Visit Start Time 13:45 Visit Stop Time 14:25 Total Visit Minutes 40 Visit Number 2 Number of TRANSACTIONAL PARALEGAL Visits 1 PT-OP-B Current Condition Start: 01/16/22 17:34 Freq: Status: Active Protocol: Document 01/16/22 14:30 DCW (Rec: 01/16/22 17:52 DCW [id number]) Current Condition History of Current Condition Onset Date One month Current Complaints 2 weeks s/p Hamstring tear repair History of Current Condition Pt is a 66 year old male presenting two week s/p left proximal hamstring rupture repair. In the beginning of December, pt was out [facility] during vacation in [place]. Pt felt a pop in his left hamstring, and was seen in a local ED. Was diagnosed with a strain. Pt continued to have pain, was scheduled for an MRI on 12/25/21 and PT on 12/26/21. Pt arrived at his initial PT eval with his MRI results, which stated complete tear of the Hamstring tendons with 4 cm retraction of the muscle. At that time, it was decided to cancel his PT eval until he was seen by an Ortho. Pt was seen soon afterward and underwent surgical repair 01/01. Referral notes limited ROM to not extend further than 60?, and to keep knee immobilizer on at all times. Treatment Goals Patient/Caregiver Goals Return to riding his motorcycle, get back to hiking and walking 5+ miles a day, and to be able to exercise enough to get rid of his weight gain that has occurred since initial injury. PT-OP-C Subjective Start: 01/16/22 17:34 Freq: Status: Active Protocol: Document 01/19/22 13:43 NBM (Rec: 01/19/22 14:34 [facility] [id number]) OP-PT Subjective Patient Comments Patient Comments Pt reports he has been doing exercises three times a day and he feels good. He states he ran into his Dr who advised him he can take the brace off to sleep or if sitting in his easy chair as long as he is mindful of not thrashing it around. PT-OP-E Functional Tests Start: 01/17/22 08:37 Freq: Status: Active Protocol: Document 01/16/22 14:30 DCW (Rec: 01/17/22 08:38 DCW [id number]) Functional Tests Timed Up and Go (TUG) Score 7.99 Comments Three-trial average (9.10, 7. 16, 7.71) TUG Impairment Rating 0% Impaired (Score 10) PT-OP-F Manual Assessment Start: 01/16/22 17:34 Freq: Status: Active Protocol: Document 01/16/22 14:30 DCW (Rec: 01/17/22 08:37 DCW [id number]) Manual Assessments Joint Mobility Assessment Joint Mobility Assessment Knee joint mobility limited to max 60? extension. Pt's brace slides down his leg despite multiple attempts to adjust, resulting in his knee extending to 30? when standing due to incorrect fit. Extension restriction on brace switched to 70?, which better allows pt to maintain ROM precautions. PT-OP-G Mobility & Gait Start: 01/16/22 17:34 Freq: Status: Active Protocol: Document 01/16/22 14:30 DCW (Rec: 01/17/22 08:37 DCW [id number]) OP Gait Assessment Gait Gait Assistance Required: Independent Assistive Devices Assistive Device None Orthotic/Prosthetic Devices or Brace: Yes Gait Deviations General Gait Pattern Antalgic Factors Limiting Gait Function Factors Limiting Gait Function Limited Range of Motion Comments Gait Comments Pt ambulates with significant limp secondary to brace limiting extension. Pt not using any crutches, discussed potential of his current ambulation technique causing hip and back pain, pt unsure if he would like to use crutches or not. PT-OP-K Range of Motion Start: 01/16/22 17:34 Freq: Status: Active Protocol: Document 01/16/22 14:30 DCW (Rec: 01/17/22 08:37 DCW [id number]) Knee Goniometric Range of Motion Knee Left Knee ROM WFL No Patient Position Sitting Flexion Active (degrees) 118 Extension Active (degrees) 60 Comments Extension limited to 60? with brace PT-OP-Q Treatments Start: 01/16/22 17:34 Freq: Status: Active Protocol: Document 01/19/22 13:43 [facility] (Rec: 01/19/22 14:34 [facility] [id number]) Therapeutic Exercises Sitting Exercises 4-Way Ankle Sitting Exercise Name PF/DF, IV/EV - added to HEP Side left Resistance Lvl 1 Tb Reps/Minutes x12 ea Comments vc for toes fwd, knee still Heel slide Sitting Exercise Name Heel slide Side left HS set Sitting Exercise Name Hamstring set Side left Reps/Minutes Gentle 5 hold Glute set Sitting Exercise Name Glute set Side bilateral Reps/Minutes 5 hold Standing Exercises Hip extension Standing Exercise Name Hip extension Side left Comments cues for upright posture Self-Care/Home Management Treatment Education Patient Education Body Mechanics,Home Exercise Program,Joint Protection, Posture,Safety Other Education Pt encouraged to bring crutches for gait training so as to avoid compensation patterns w/ ambulation. 4-way ankle ex added to HEP - HO given. PT-OP-T Assessment and Plan Start: 01/16/22 17:34 Freq: Status: Active Protocol: Document 01/19/22 13:43 [facility] (Rec: 02/04/22 19:07 [facility] [id number]) Physical Therapy Assessment Goals Two Impairment Pt unable to walk/hike is usual five miles per day Longterm Goal (LTG) Pt to progress to full knee extension, following post-op protocol, in order to normalize gait pattern in order for pt to return to walking or hiking at least five miles a day, which is his preferred leisure activity. LTG Duration 03/18/22 One Impairment Pt does not have an appropriate home exercise program Short Term Goal (STG) Pt to be independent and compliant with an appropriate HEP STG Duration 02/15/22 Assessment Summary Assessment Physician protocol not received - per discussion w/ evaluating PT treatment focus on gentle hip mobility and ankle strengthening. Pt arrives without crutches and encouraged to bring crutches for gait training so as to avoid compensation patterns w/ ambulation. Pt requires frequent cues for neutral foot position with exercises R>L due to excessive hip external rotation. 4-way ankle ex added to HEP - HO given. Physical Therapy Plan Frequency and Duration Frequency of Treatment 2x/Week Plan of Care Start Date 01/16/22 Plan of Care End Date 03/18/22 Therapeutic Interventions Therapeutic Interventions Aquatic Therapy,Gait Training, Home Exercise Program,Joint Mobilizations,Manual Therapy, Orthotic/Prosthetic Management ,Patient/Caregiver Education, Self-Care/Home Management,Soft Tissue Mobilization, Therapeutic Activities, Therapeutic Exercises Modalities Cold Pack/Ice Massage,Electric Stimulation,Hot Packs, Ultrasound Next Visit Focus/Plan Next Note Type Treatment Note Next Visit Plan Check for physician protocol sent (forms & cards). Gentle strengthening, hip mobility
--- NOTE | 2022-01-19 15:33 | PT-OP ANOTE ---
Called [phone] regarding pt's missed 3:15pm PT appointment - no answer; unable to leave voicemail due to mailbox full. Pt currently has one appointment scheduled: 01/24 w/ PT.
--- NOTE | 2022-01-23 10:31 | PT.OTN ---
Current Diagnoses Stiffness of left hip, not elsewhere classified (01/23/22) Stiffness of left knee, not elsewhere classified (01/23/22) Other abnormalities of gait and mobility (01/23/22) Strain of muscle, fascia and tendon of the posterior muscle group at thigh level, left thigh, initial encounter (01/23/22) Physical Therapy Treatment Note PT-OP-A Visit Information Start: 01/16/22 17:34 Freq: Status: Active Protocol: Document 01/23/22 09:47 LRN (Rec: 01/23/22 10:30 LRN [id number]) Out-Patient Physical Therapy Visit Information Visit Information Visit Type Treatment Note Visit Start Time 09:47 Visit Stop Time 10:23 Total Visit Minutes 36 Visit Number 3 Evaluation Information Evaluation Date 01/16/22 PT-OP-B Current Condition Start: 01/16/22 17:34 Freq: Status: Active Protocol: Document 01/16/22 14:30 DCW (Rec: 01/16/22 17:52 DCW [id number]) Current Condition History of Current Condition Onset Date One month Current Complaints 2 weeks s/p Hamstring tear repair History of Current Condition Pt is a 66 year old male presenting two week s/p left proximal hamstring rupture repair. In the beginning of December, pt was out [facility] during vacation in [place]. Pt felt a pop in his left hamstring, and was seen in a local ED. Was diagnosed with a strain. Pt continued to have pain, was scheduled for an MRI on 12/25/21 and PT on 12/26/21. Pt arrived at his initial PT eval with his MRI results, which stated complete tear of the Hamstring tendons with 4 cm retraction of the muscle. At that time, it was decided to cancel his PT eval until he was seen by an Ortho. Pt was seen soon afterward and underwent surgical repair 01/01. Referral notes limited ROM to not extend further than 60?, and to keep knee immobilizer on at all times. Treatment Goals Patient/Caregiver Goals Return to riding his motorcycle, get back to hiking and walking 5+ miles a day, and to be able to exercise enough to get rid of his weight gain that has occurred since initial injury. PT-OP-C Subjective Start: 01/16/22 17:34 Freq: Status: Active Protocol: Document 01/23/22 09:47 LRN (Rec: 01/23/22 10:30 LRN [id number]) OP-PT Subjective Patient Comments Patient Comments Requests early leave due to another appt and requests ending by 10:20a. No WBing restriction. Uses crutches because it was recommended by previous PT's. States he walks on it fine. WAs told last week he could take the brace off during sleep and sitting. PT-OP-E Functional Tests Start: 01/17/22 08:37 Freq: Status: Active Protocol: Document 01/16/22 14:30 DCW (Rec: 01/17/22 08:38 DCW [id number]) Functional Tests Timed Up and Go (TUG) Score 7.99 Comments Three-trial average (9.10, 7. 16, 7.71) TUG Impairment Rating 0% Impaired (Score 10) PT-OP-F Manual Assessment Start: 01/16/22 17:34 Freq: Status: Active Protocol: Document 01/16/22 14:30 DCW (Rec: 01/17/22 08:37 DCW [id number]) Manual Assessments Joint Mobility Assessment Joint Mobility Assessment Knee joint mobility limited to max 60? extension. Pt's brace slides down his leg despite multiple attempts to adjust, resulting in his knee extending to 30? when standing due to incorrect fit. Extension restriction on brace switched to 70?, which better allows pt to maintain ROM precautions. PT-OP-G Mobility & Gait Start: 01/16/22 17:34 Freq: Status: Active Protocol: Document 01/16/22 14:30 DCW (Rec: 01/17/22 08:37 DCW [id number]) OP Gait Assessment Gait Gait Assistance Required: Independent Assistive Devices Assistive Device None Orthotic/Prosthetic Devices or Brace: Yes Gait Deviations General Gait Pattern Antalgic Factors Limiting Gait Function Factors Limiting Gait Function Limited Range of Motion Comments Gait Comments Pt ambulates with significant limp secondary to brace limiting extension. Pt not using any crutches, discussed potential of his current ambulation technique causing hip and back pain, pt unsure if he would like to use crutches or not. PT-OP-K Range of Motion Start: 01/16/22 17:34 Freq: Status: Active Protocol: Document 01/16/22 14:30 DCW (Rec: 01/17/22 08:37 DCW [id number]) Knee Goniometric Range of Motion Knee Left Knee ROM WFL No Patient Position Sitting Flexion Active (degrees) 118 Extension Active (degrees) 60 Comments Extension limited to 60? with brace PT-OP-Q Treatments Start: 01/16/22 17:34 Freq: Status: Active Protocol: Document 01/23/22 09:47 LRN (Rec: 01/23/22 10:30 LRN [id number]) Therapeutic Exercises Sitting Exercises 4-Way Ankle Sitting Exercise Name PF/DF, IV/EV - added to HEP Side left Resistance Lvl 2 Tb Reps/Minutes 10x 3 ea Comments vc for toes fwd, knee still Heel slide Sitting Exercise Name Heel slide - assisted Side left Reps/Minutes 15x HS set Sitting Exercise Name Hamstring set Side left Reps/Minutes Gentle 8 hold - no pain Standing Exercises Hip extension Standing Exercise Name Hip extension Side left Reps/Minutes 15x Comments cues for upright posture Self-Care/Home Management Treatment Education Patient Education Home Exercise Program Other Education Educated pt in well healed scar mobility and self scar mob. Activities Self-Care/Home Management Activities Issued & reviewed HEP: ankle EV/IV/DF. PT-OP-T Assessment and Plan Start: 01/16/22 17:34 Freq: Status: Active Protocol: Document 01/23/22 09:47 LRN (Rec: 01/23/22 10:30 LRN [id number]) Physical Therapy Assessment Goals Two Impairment Pt unable to walk/hike is usual five miles per day Longterm Goal (LTG) Pt to progress to full knee extension, following post-op protocol, in order to normalize gait pattern in order for pt to return to walking or hiking at least five miles a day, which is his preferred leisure activity. LTG Duration 03/18/22 One Impairment Pt does not have an appropriate home exercise program Short Term Goal (STG) Pt to be independent and compliant with an appropriate HEP STG Duration 02/15/22 Progress Towards Goals Progress Comments Increased resistance with ankle ex with issuance of Lev2 TB. Assessment Summary Assessment Pt told he could sleep without L knee brace. L knee brace to limit extension to 60?. Pt 's AAROM for supine knee flex/ ext is ~8-115 deg's without discomfort. Pt indicates he was given permission by referring physician to sleep without brace on, which the pt has been doing. Pt appears to have a good understanding after education of precautions with movement. Good understanding of ankle exercise. Pt appears to walk as well as possible with knee ROM limiting brace and without discomfort. Physical Therapy Plan Frequency and Duration Frequency of Treatment 2x/Week Duration of Treatment Two months Plan of Care Start Date 01/16/22 Plan of Care End Date 03/18/22 Next Visit Focus/Plan Next Note Type Treatment Note Next Visit Plan Check for physician protocol sent (forms & cards). Gentle strengthening, hip mobility
--- NOTE | 2022-01-29 10:33 | PT.OTN ---
Current Diagnoses Stiffness of left hip, not elsewhere classified (01/29/22) Stiffness of left knee, not elsewhere classified (01/29/22) Other abnormalities of gait and mobility (01/29/22) Strain of muscle, fascia and tendon of the posterior muscle group at thigh level, left thigh, initial encounter (01/29/22) Physical Therapy Treatment Note PT-OP-A Visit Information Start: 01/16/22 17:34 Freq: Status: Active Protocol: Document 01/29/22 09:50 LRN (Rec: 01/29/22 10:32 LRN [id number]) Out-Patient Physical Therapy Visit Information Visit Information Visit Type Treatment Note Visit Start Time 09:50 Visit Stop Time 10:30 Total Visit Minutes 40 Visit Number 4 Evaluation Information Evaluation Date 01/16/22 PT-OP-B Current Condition Start: 01/16/22 17:34 Freq: Status: Active Protocol: Document 01/16/22 14:30 DCW (Rec: 01/16/22 17:52 DCW [id number]) Current Condition History of Current Condition Onset Date One month Current Complaints 2 weeks s/p Hamstring tear repair History of Current Condition Pt is a 66 year old male presenting two week s/p left proximal hamstring rupture repair. In the beginning of December, pt was out [facility] during vacation in [place]. Pt felt a pop in his left hamstring, and was seen in a local ED. Was diagnosed with a strain. Pt continued to have pain, was scheduled for an MRI on 12/25/21 and PT on 12/26/21. Pt arrived at his initial PT eval with his MRI results, which stated complete tear of the Hamstring tendons with 4 cm retraction of the muscle. At that time, it was decided to cancel his PT eval until he was seen by an Ortho. Pt was seen soon afterward and underwent surgical repair 01/01. Referral notes limited ROM to not extend further than 60?, and to keep knee immobilizer on at all times. Treatment Goals Patient/Caregiver Goals Return to riding his motorcycle, get back to hiking and walking 5+ miles a day, and to be able to exercise enough to get rid of his weight gain that has occurred since initial injury. PT-OP-C Subjective Start: 01/16/22 17:34 Freq: Status: Active Protocol: Document 01/29/22 09:50 LRN (Rec: 01/29/22 10:32 LRN [id number]) OP-PT Subjective Patient Comments Patient Comments States he is ready to go walking. No C/O pain unless walking without brace, can tell he shouldn't twist or tweek it. PT-OP-E Functional Tests Start: 01/17/22 08:37 Freq: Status: Active Protocol: Document 01/16/22 14:30 DCW (Rec: 01/17/22 08:38 DCW [id number]) Functional Tests Timed Up and Go (TUG) Score 7.99 Comments Three-trial average (9.10, 7. 16, 7.71) TUG Impairment Rating 0% Impaired (Score 10) PT-OP-F Manual Assessment Start: 01/16/22 17:34 Freq: Status: Active Protocol: Document 01/16/22 14:30 DCW (Rec: 01/17/22 08:37 DCW [id number]) Manual Assessments Joint Mobility Assessment Joint Mobility Assessment Knee joint mobility limited to max 60? extension. Pt's brace slides down his leg despite multiple attempts to adjust, resulting in his knee extending to 30? when standing due to incorrect fit. Extension restriction on brace switched to 70?, which better allows pt to maintain ROM precautions. PT-OP-G Mobility & Gait Start: 01/16/22 17:34 Freq: Status: Active Protocol: Document 01/16/22 14:30 DCW (Rec: 01/17/22 08:37 DCW [id number]) OP Gait Assessment Gait Gait Assistance Required: Independent Assistive Devices Assistive Device None Orthotic/Prosthetic Devices or Brace: Yes Gait Deviations General Gait Pattern Antalgic Factors Limiting Gait Function Factors Limiting Gait Function Limited Range of Motion Comments Gait Comments Pt ambulates with significant limp secondary to brace limiting extension. Pt not using any crutches, discussed potential of his current ambulation technique causing hip and back pain, pt unsure if he would like to use crutches or not. PT-OP-K Range of Motion Start: 01/16/22 17:34 Freq: Status: Active Protocol: Document 01/16/22 14:30 DCW (Rec: 01/17/22 08:37 DCW [id number]) Knee Goniometric Range of Motion Knee Left Knee ROM WFL No Patient Position Sitting Flexion Active (degrees) 118 Extension Active (degrees) 60 Comments Extension limited to 60? with brace PT-OP-Q Treatments Start: 01/16/22 17:34 Freq: Status: Active Protocol: Document 01/29/22 09:50 LRN (Rec: 01/29/22 10:32 LRN [id number]) Cardio Equipment Upper Body Ergometer (UBE) Duration (Minutes) 3 RPM 70 Seat Position 13 Height 3 Other Pt working on core stabilization with chest breathing Therapeutic Exercises Supine Exercises TA tightening Supine Exercise Name TA tightenig - Abdominal isometric Reps/Minutes 10' Comments Much verbal and phys cuing to engage and hold core w/ breathing HS Supine Exercise Name Hamstring/Gluteal Set Reps/Minutes 10SH Sitting Exercises 4-Way Ankle Sitting Exercise Name PF/DF, IV/EV - added to HEP Side left Resistance Lvl 2 Tb Reps/Minutes 10x 3 ea Comments vc for toes fwd, knee still Heel slide Sitting Exercise Name Heel slide - assisted Side left Reps/Minutes 15x HS set Sitting Exercise Name Hamstring set Side left Reps/Minutes Gentle 10 hold - no pain Glute set Sitting Exercise Name Glute set Side bilateral Reps/Minutes 10 hold Standing Exercises Hip extension Standing Exercise Name Hip extension Side left Reps/Minutes 3' Comments cues for upright posture, chest breathing w/core stable Self-Care/Home Management Treatment Education Other Education Pt educated to gentle massage healed scar. PT-OP-T Assessment and Plan Start: 01/16/22 17:34 Freq: Status: Active Protocol: Document 01/29/22 09:50 LRN (Rec: 01/29/22 10:32 LRN [id number]) Physical Therapy Assessment Goals Two Impairment Pt unable to walk/hike is usual five miles per day Usp Goal (LTG) Pt to progress to full knee extension, following post-op protocol, in order to normalize gait pattern in order for pt to return to walking or hiking at least five miles a day, which is his preferred leisure activity. LTG Duration 03/18/22 One Impairment Pt does not have an appropriate home exercise program Short Term Goal (STG) Pt to be independent and compliant with an appropriate HEP STG Duration 02/15/22 Assessment Summary Assessment No new physician protocol. Pt unable to maintain core stabilization during breathing ; therefore further training needed. Pt sleeping without L knee brace. L knee brace to limit extension to 60?. Pt's AAROM for supine knee flex/ext is ~8-115 deg's without discomfort. Pt appears to have a good understanding of HEP. Good understanding of ankle exercises with 2nd review, may need 3rd review. Pt Physical Therapy Plan Frequency and Duration Frequency of Treatment 2x/Week Plan of Care Start Date 01/16/22 Plan of Care End Date 03/18/22 Next Visit Focus/Plan Next Note Type Treatment Note Next Visit Plan Check for physician protocol sent (forms & cards). Gentle strengthening, hip mobility. Neuro training for holding core stable with ADLs and exercise.
--- NOTE | 2022-01-31 12:21 | PT.OTN ---
Current Diagnoses Stiffness of left hip, not elsewhere classified (01/31/22) Stiffness of left knee, not elsewhere classified (01/31/22) Other abnormalities of gait and mobility (01/31/22) Strain of muscle, fascia and tendon of the posterior muscle group at thigh level, left thigh, initial encounter (01/31/22) Physical Therapy Treatment Note PT-OP-A Visit Information Start: 01/16/22 17:34 Freq: Status: Active Protocol: Document 01/31/22 10:48 AMB (Rec: 01/31/22 11:07 AMB [id number]) Out-Patient Physical Therapy Visit Information Visit Information Visit Type Treatment Note Visit Start Time 10:30 Visit Stop Time 11:15 Total Visit Minutes 40 Visit Number 5 PT-OP-B Current Condition Start: 01/16/22 17:34 Freq: Status: Active Protocol: Document 01/16/22 14:30 DCW (Rec: 01/16/22 17:52 DCW [id number]) Current Condition History of Current Condition Onset Date One month Current Complaints 2 weeks s/p Hamstring tear repair History of Current Condition Pt is a 66 year old male presenting two week s/p left proximal hamstring rupture repair. In the beginning of December, pt was out [facility] during vacation in [place]. Pt felt a pop in his left hamstring, and was seen in a local ED. Was diagnosed with a strain. Pt continued to have pain, was scheduled for an MRI on 12/25/21 and PT on 12/26/21. Pt arrived at his initial PT eval with his MRI results, which stated complete tear of the Hamstring tendons with 4 cm retraction of the muscle. At that time, it was decided to cancel his PT eval until he was seen by an Ortho. Pt was seen soon afterward and underwent surgical repair 01/01. Referral notes limited ROM to not extend further than 60?, and to keep knee immobilizer on at all times. Treatment Goals Patient/Caregiver Goals Return to riding his motorcycle, get back to hiking and walking 5+ miles a day, and to be able to exercise enough to get rid of his weight gain that has occurred since initial injury. PT-OP-C Subjective Start: 01/16/22 17:34 Freq: Status: Active Protocol: Document 01/31/22 10:30 AMB (Rec: 01/31/22 12:15 AMB [id number]) OP-PT Subjective Patient Comments Patient Comments Pt is concerned that he is just doing the same exercises in PT and doesn't really feel like it is a good use of his time. he is not having pain, unless he tightens the leg brace too much, he does attend with crutches. PT-OP-E Functional Tests Start: 01/17/22 08:37 Freq: Status: Active Protocol: Document 01/16/22 14:30 DCW (Rec: 01/17/22 08:38 DCW [id number]) Functional Tests Timed Up and Go (TUG) Score 7.99 Comments Three-trial average (9.10, 7. 16, 7.71) TUG Impairment Rating 0% Impaired (Score 10) PT-OP-F Manual Assessment Start: 01/16/22 17:34 Freq: Status: Active Protocol: Document 01/16/22 14:30 DCW (Rec: 01/17/22 08:37 DCW [id number]) Manual Assessments Joint Mobility Assessment Joint Mobility Assessment Knee joint mobility limited to max 60? extension. Pt's brace slides down his leg despite multiple attempts to adjust, resulting in his knee extending to 30? when standing due to incorrect fit. Extension restriction on brace switched to 70?, which better allows pt to maintain ROM precautions. PT-OP-G Mobility & Gait Start: 01/16/22 17:34 Freq: Status: Active Protocol: Document 01/16/22 14:30 DCW (Rec: 01/17/22 08:37 DCW [id number]) OP Gait Assessment Gait Gait Assistance Required: Independent Assistive Devices Assistive Device None Orthotic/Prosthetic Devices or Brace: Yes Gait Deviations General Gait Pattern Antalgic Factors Limiting Gait Function Factors Limiting Gait Function Limited Range of Motion Comments Gait Comments Pt ambulates with significant limp secondary to brace limiting extension. Pt not using any crutches, discussed potential of his current ambulation technique causing hip and back pain, pt unsure if he would like to use crutches or not. PT-OP-K Range of Motion Start: 01/16/22 17:34 Freq: Status: Active Protocol: Document 01/16/22 14:30 DCW (Rec: 01/17/22 08:37 DCW [id number]) Knee Goniometric Range of Motion Knee Left Knee ROM WFL No Patient Position Sitting Flexion Active (degrees) 118 Extension Active (degrees) 60 Comments Extension limited to 60? with brace PT-OP-Q Treatments Start: 01/16/22 17:34 Freq: Status: Active Protocol: Document 01/31/22 10:30 AMB (Rec: 01/31/22 12:15 AMB [id number]) Therapeutic Exercises Supine Exercises hip add Supine Exercise Name hooklying with ball Reps/Minutes 2x10 quad stretch Supine Exercise Name gentle, L leg hanging over side of table Reps/Minutes 30x2 TA march Reps/Minutes 2x10 Comments cued TA bridge Reps/Minutes 2x10 Comments cued glut facilitation TA tightening Supine Exercise Name TA tightenig - Abdominal isometric Reps/Minutes 10' Comments Much verbal and phys cuing to engage and hold core w/ breathing Sidelying Exercises clam Reps/Minutes 2x10 Sitting Exercises sit to stand Reps/Minutes 2x10 PT-OP-T Assessment and Plan Start: 01/16/22 17:34 Freq: Status: Active Protocol: Document 01/31/22 10:48 AMB (Rec: 01/31/22 11:07 AMB [id number]) Physical Therapy Assessment Goals Two Impairment Pt unable to walk/hike is usual five miles per day Alf Goal (LTG) Pt to progress to full knee extension, following post-op protocol, in order to normalize gait pattern in order for pt to return to walking or hiking at least five miles a day, which is his preferred leisure activity. LTG Duration 03/18/22 One Impairment Pt does not have an appropriate home exercise program Short Term Goal (STG) Pt to be independent and compliant with an appropriate HEP STG Duration 02/15/22 Assessment Summary Assessment German did not have pain with new exercises and did appreciate more hip strengthening. Is seeing MD in mid February ( around 6 weeks post op) and discussed that will likely allow more strengthening at that point. Physical Therapy Plan Frequency and Duration Frequency of Treatment 2x/Week Plan of Care Start Date 01/16/22 Plan of Care End Date 03/18/22 Next Visit Focus/Plan Next Note Type Treatment Note Next Visit Plan Check for physician protocol sent (forms & cards). Gentle strengthening, hip mobility. Neuro training for holding core stable with ADLs and exercise. Follow up on new HEP: quad stetch, clam, hip add.
--- NOTE | 2022-02-06 11:15 | PT.OTN ---
Current Diagnoses Stiffness of left hip, not elsewhere classified (02/09/22) Stiffness of left knee, not elsewhere classified (02/09/22) Other abnormalities of gait and mobility (02/09/22) Strain of muscle, fascia and tendon of the posterior muscle group at thigh level, left thigh, initial encounter (02/09/22) Physical Therapy Treatment Note PT-OP-A Visit Information Start: 01/16/22 17:34 Freq: Status: Active Protocol: Document 02/06/22 10:03 NBM (Rec: 02/12/22 21:49 NBM [id number]) Out-Patient Physical Therapy Visit Information Visit Information Visit Type Treatment Note Visit Start Time 09:50 Visit Stop Time 10:30 Total Visit Minutes 40 Visit Number 6 Number of 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 In the beginning of December, pt was out [facility] during vacation in [place]. Pt felt a pop in his left hamstring, and was seen in a local ED. Was diagnosed with a strain. Pt continued to have pain, was scheduled for an MRI on 12/25/21 and PT on 12/26/21. Pt arrived at his initial PT eval with his MRI results, which stated complete tear of the Hamstring tendons with 4 cm retraction of the muscle. At that time, it was decided to cancel his PT eval until he was seen by an Ortho. Pt was seen soon afterward and underwent surgical repair 01/01. Referral notes limited ROM to not extend further than 60?, and to keep knee immobilizer on at all times. Treatment Goals Patient/Caregiver Goals Return to riding his motorcycle, get back to hiking and walking 5+ miles a day, and to be able to exercise enough to get rid of his weight gain that has occurred since initial injury. PT-OP-C Subjective Start: 01/16/22 17:34 Freq: Status: Active Protocol: Document 02/06/22 10:03 NBM (Rec: 02/06/22 10:39 [facility] [id number]) OP-PT Subjective Patient Comments Patient Comments Pt states he has a follow up with surgeon on 02/14/22. He only use crutches for walking any distance, but does not use them at home - has an elevator at home. Sleep is okay. PT-OP-E Functional Tests Start: 01/17/22 08:37 Freq: Status: Active Protocol: Document 01/16/22 14:30 DCW (Rec: 01/17/22 08:38 DCW [id number]) Functional Tests Timed Up and Go (TUG) Score 7.99 Comments Three-trial average (9.10, 7. 16, 7.71) TUG Impairment Rating 0% Impaired (Score 10) PT-OP-F Manual Assessment Start: 01/16/22 17:34 Freq: Status: Active Protocol: Document 01/16/22 14:30 DCW (Rec: 01/17/22 08:37 DCW [id number]) Manual Assessments Joint Mobility Assessment Joint Mobility Assessment Knee joint mobility limited to max 60? extension. Pt's brace slides down his leg despite multiple attempts to adjust, resulting in his knee extending to 30? when standing due to incorrect fit. Extension restriction on brace switched to 70?, which better allows pt to maintain ROM precautions. PT-OP-G Mobility & Gait Start: 01/16/22 17:34 Freq: Status: Active Protocol: Document 01/16/22 14:30 DCW (Rec: 01/17/22 08:37 DCW [id number]) OP Gait Assessment Gait Gait Assistance Required: Independent Assistive Devices Assistive Device None Orthotic/Prosthetic Devices or Brace: Yes Gait Deviations General Gait Pattern Antalgic Factors Limiting Gait Function Factors Limiting Gait Function Limited Range of Motion Comments Gait Comments Pt ambulates with significant limp secondary to brace limiting extension. Pt not using any crutches, discussed potential of his current ambulation technique causing hip and back pain, pt unsure if he would like to use crutches or not. PT-OP-K Range of Motion Start: 01/16/22 17:34 Freq: Status: Active Protocol: Document 01/16/22 14:30 DCW (Rec: 01/17/22 08:37 DCW [id number]) Knee Goniometric Range of Motion Knee Left Knee ROM WFL No Patient Position Sitting Flexion Active (degrees) 118 Extension Active (degrees) 60 Comments Extension limited to 60? with brace PT-OP-Q Treatments Start: 01/16/22 17:34 Freq: Status: Active Protocol: Document 02/06/22 10:03 [facility] (Rec: 02/06/22 10:39 [facility] [id number]) Therapeutic Exercises Supine Exercises hip add Supine Exercise Name hooklying with ball Reps/Minutes 2x10 quad stretch Supine Exercise Name gentle, L leg hanging over side of table Reps/Minutes 30x2 Sidelying Exercises clam Reps/Minutes 2x10 Comments frequent cues for not rocking back Standing Exercises step ups Standing Exercise Name Up/Down Equipment Used 4 step Comments verbal cue for down w/ L leg - pt self-corrects w/ repetition Gait Training Gait Activity Ambulating w/ Crutches Description w/ and w/o crutches Device Used Michael Crutches, L knee brace, mirror Level of Assistance SBA Surface carpet Comments Pt walks w/ limp which decreases w/ use of Michael crutches. Pt's self-awareness improves w/ mirror. Self-Care/Home Management Treatment Education Patient Education Body Mechanics,Posture Other Education Discussed TrA engagement for core stability and importance of not holding breath. PT-OP-T Assessment and Plan Start: 01/16/22 17:34 Freq: Status: Active Protocol: Document 02/06/22 10:03 [facility] (Rec: 02/06/22 10:39 [facility] [id number]) Physical Therapy Assessment Goals Two Impairment Pt unable to walk/hike is usual five miles per day Foundation Engineer Goal (LTG) Pt to progress to full knee extension, following post-op protocol, in order to normalize gait pattern in order for pt to return to walking or hiking at least five miles a day, which is his preferred leisure activity. LTG Duration 03/18/22 One Impairment Pt does not have an appropriate home exercise program Short Term Goal (STG) Pt to be independent and compliant with an appropriate HEP STG Duration 02/15/22 Assessment Summary Assessment No physician protocol received . Pt arrives w/ L knee brace, and michael crutches which he admits to using sparingly. Treatment focus on HEP review and gait training. Pt walks w/ limp which decreases with use of Michael crutches, and pt's self-awareness improves w/ visual feedback of mirror. Pt needs maximum cues to avoid pelvic rotation w/ sidelying clamshell ex, and requires consistent cues not to hold breath. Educated provided on TrA engagement for core stability and relationship w/ breathing. Physical Therapy Plan Frequency and Duration Frequency of Treatment 2x/Week Plan of Care Start Date 01/16/22 Plan of Care End Date 03/18/22 Therapeutic Interventions Therapeutic Interventions Aquatic Therapy,Gait Training, Home Exercise Program,Joint Mobilizations,Manual Therapy, Orthotic/Prosthetic Management ,Patient/Caregiver Education, Self-Care/Home Management,Soft Tissue Mobilization, Therapeutic Activities, Therapeutic Exercises Modalities Cold Pack/Ice Massage,Electric Stimulation,Hot Packs, Ultrasound Next Visit Focus/Plan Next Note Type Treatment Note Next Visit Plan Check for physician protocol sent (forms & cards). Gentle strengthening, hip mobility. Neuro training for holding core stable with ADLs and exercise.
--- NOTE | 2022-02-09 16:30 | PT.OTN ---
Current Diagnoses Stiffness of left hip, not elsewhere classified (02/09/22) Stiffness of left knee, not elsewhere classified (02/09/22) Other abnormalities of gait and mobility (02/09/22) Strain of muscle, fascia and tendon of the posterior muscle group at thigh level, left thigh, initial encounter (02/09/22) Physical Therapy Treatment Note PT-OP-A Visit Information Start: 01/16/22 17:34 Freq: Status: Active Protocol: Document 02/09/22 15:15 NBM (Rec: 02/12/22 22:34 NBM [id number]) Out-Patient Physical Therapy Visit Information Visit Information Visit Type Treatment Note Visit Start Time 15:15 Visit Stop Time 15:58 Total Visit Minutes 43 Visit Number 7 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 In the beginning of December, pt was out [facility] during vacation in [place]. Pt felt a pop in his left hamstring, and was seen in a local ED. Was diagnosed with a strain. Pt continued to have pain, was scheduled for an MRI on 12/25/21 and PT on 12/26/21. Pt arrived at his initial PT eval with his MRI results, which stated complete tear of the Hamstring tendons with 4 cm retraction of the muscle. At that time, it was decided to cancel his PT eval until he was seen by an Ortho. Pt was seen soon afterward and underwent surgical repair 01/01. Referral notes limited ROM to not extend further than 60?, and to keep knee immobilizer on at all times. Treatment Goals Patient/Caregiver Goals Return to riding his motorcycle, get back to hiking and walking 5+ miles a day, and to be able to exercise enough to get rid of his weight gain that has occurred since initial injury. PT-OP-C Subjective Start: 01/16/22 17:34 Freq: Status: Active Protocol: Document 02/09/22 15:15 NBM (Rec: 02/12/22 22:34 [facility] [id number]) OP-PT Subjective Patient Comments Patient Comments Pt reports he gets soreness and when rolling over he feels a lump towards inside of his L thigh at the top and wonders if the muscle is not attached or if there is a hematoma again. He reports pain is minimal. His surgical f/u is 02/14. PT-OP-E Functional Tests Start: 01/17/22 08:37 Freq: Status: Active Protocol: Document 01/16/22 14:30 DCW (Rec: 01/17/22 08:38 DCW [id number]) Functional Tests Timed Up and Go (TUG) Score 7.99 Comments Three-trial average (9.10, 7. 16, 7.71) TUG Impairment Rating 0% Impaired (Score 10) PT-OP-F Manual Assessment Start: 01/16/22 17:34 Freq: Status: Active Protocol: Document 01/16/22 14:30 DCW (Rec: 01/17/22 08:37 DCW [id number]) Manual Assessments Joint Mobility Assessment Joint Mobility Assessment Knee joint mobility limited to max 60? extension. Pt's brace slides down his leg despite multiple attempts to adjust, resulting in his knee extending to 30? when standing due to incorrect fit. Extension restriction on brace switched to 70?, which better allows pt to maintain ROM precautions. PT-OP-G Mobility & Gait Start: 01/16/22 17:34 Freq: Status: Active Protocol: Document 01/16/22 14:30 DCW (Rec: 01/17/22 08:37 DCW [id number]) OP Gait Assessment Gait Gait Assistance Required: Independent Assistive Devices Assistive Device None Orthotic/Prosthetic Devices or Brace: Yes Gait Deviations General Gait Pattern Antalgic Factors Limiting Gait Function Factors Limiting Gait Function Limited Range of Motion Comments Gait Comments Pt ambulates with significant limp secondary to brace limiting extension. Pt not using any crutches, discussed potential of his current ambulation technique causing hip and back pain, pt unsure if he would like to use crutches or not. PT-OP-K Range of Motion Start: 01/16/22 17:34 Freq: Status: Active Protocol: Document 01/16/22 14:30 DCW (Rec: 01/17/22 08:37 DCW [id number]) Knee Goniometric Range of Motion Knee Left Knee ROM WFL No Patient Position Sitting Flexion Active (degrees) 118 Extension Active (degrees) 60 Comments Extension limited to 60? with brace PT-OP-Q Treatments Start: 01/16/22 17:34 Freq: Status: Active Protocol: Document 02/09/22 15:15 [facility] (Rec: 02/12/22 22:34 [facility] [id number]) Therapeutic Exercises Supine Exercises TA tightening Supine Exercise Name TrA w/ 1.PPT 2.BKFO Side bilateral Reps/Minutes 10' Comments self-monitor medial to ant iliac sp., gentle core, breathe Sitting Exercises 4-Way Ankle Sitting Exercise Name PF/DF, IV/EV Side left Resistance Lvl 2 Tb Reps/Minutes 10x 3 ea Comments pt self-corrects for controlled eccentric Manual Therapy Treatment Soft Tissue Mobilization self-STMs Body Location L Adductor longus Mobilization Type Instrument Assisted Intensity/Depth Moderate Body Position Sitting Comments Pt trialed hand/raquetball/ tennis ball - rolling pin discussed L HS Body Location L proximal HS, L Adductor longus Mobilization Type Cross-Friction,Rolling Intensity/Depth Moderate Body Position Hooklying Self-Care/Home Management Treatment Education Patient Education Home Exercise Program,Pain Management Other Education Clarified TrA engagement for core stability with self- monitoring medial to ant. iliac sp. d/t pt trying to brace stomach and breathe from chest. Practiced w/ PPT and BKFO. 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 LTG Duration 03/18/22 One Impairment Pt does not have an appropriate home exercise program Short Term Goal (STG) Pt to be independent and compliant with an appropriate HEP STG Duration 02/15/22 Assessment Summary Assessment No physician protocol received . Pt arrives w/ L knee brace, and neel crutches. No evidence of discoloration or hematoma upon inspection of surgical scar, L adductor longus and hamstrings. Palpable tightness to L Adductor longus and proximal hamstring improves w/ manual therapy. Pt educated how to perform self-STM to L Adductor longus w/ hand, raquetball, tennis ball - rolling pin discussed but not trialed. Clarified TrA engagement for core stability w/ self-monitoring medial to ant. iliac sp. d/t pt trying to brace stomach and breathe from chest - pt's self- awareness improves w/ PPT and BKFO repetitions. Pt shows self-correction for controlled eccentric w/ 4-way ankle. Pt requested to obtain copy of protocol at 02/14 MD visit to bring to PT. Physical Therapy Plan Frequency and Duration Frequency of Treatment 2x/Week Plan of Care Start Date 01/16/22 Plan of Care End Date 03/18/22 Therapeutic Interventions Therapeutic Interventions Aquatic Therapy,Gait Training, Home Exercise Program,Joint Mobilizations,Manual Therapy, Orthotic/Prosthetic Management ,Patient/Caregiver Education, Self-Care/Home Management,Soft Tissue Mobilization, Therapeutic Activities, Therapeutic Exercises Modalities Cold Pack/Ice Massage,Electric Stimulation,Hot Packs, Ultrasound Next Visit Focus/Plan Next Note Type Treatment Note Next Visit Plan Check for physician protocol sent (forms & cards). Gentle strengthening, hip mobility. Neuro training for holding core stable with ADLs and exercise.
--- NOTE | 2022-02-13 17:31 | PT.OTN ---
Current Diagnoses Stiffness of left hip, not elsewhere classified (02/13/22) Stiffness of left knee, not elsewhere classified (02/13/22) Other abnormalities of gait and mobility (02/13/22) Strain of muscle, fascia and tendon of the posterior muscle group at thigh level, left thigh, initial encounter (02/13/22) Physical Therapy Treatment Note PT-OP-A Visit Information Start: 01/16/22 17:34 Freq: Status: Active Protocol: Document 02/13/22 16:45 DCW (Rec: 02/13/22 17:31 DCW [id number]) Out-Patient Physical Therapy Visit Information Visit Information Visit Type Treatment Note Visit Start Time 16:45 Visit Stop Time 17:30 Total Visit Minutes 45 Visit Number 8 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 In the beginning of December, pt was out [facility] during vacation in [place]. Pt felt a pop in his left hamstring, and was seen in a local ED. Was diagnosed with a strain. Pt continued to have pain, was scheduled for an MRI on 12/25/21 and PT on 12/26/21. Pt arrived at his initial PT eval with his MRI results, which stated complete tear of the Hamstring tendons with 4 cm retraction of the muscle. At that time, it was decided to cancel his PT eval until he was seen by an Ortho. Pt was seen soon afterward and underwent surgical repair 01/01. Referral notes limited ROM to not extend further than 60?, and to keep knee immobilizer on at all times. Treatment Goals Patient/Caregiver Goals Return to riding his motorcycle, get back to hiking and walking 5+ miles a day, and to be able to exercise enough to get rid of his weight gain that has occurred since initial injury. PT-OP-C Subjective Start: 01/16/22 17:34 Freq: Status: Active Protocol: Document 02/13/22 16:45 DCW (Rec: 02/13/22 17:31 DCW [id number]) OP-PT Subjective Patient Comments Patient Comments Surgical follow-up tomorrow. Admits that he has cut back on his ankle flexion exercises. PT-OP-E Functional Tests Start: 01/17/22 08:37 Freq: Status: Active Protocol: Document 01/16/22 14:30 DCW (Rec: 01/17/22 08:38 DCW [id number]) Functional Tests Timed Up and Go (TUG) Score 7.99 Comments Three-trial average (9.10, 7. 16, 7.71) TUG Impairment Rating 0% Impaired (Score 10) PT-OP-F Manual Assessment Start: 01/16/22 17:34 Freq: Status: Active Protocol: Document 01/16/22 14:30 DCW (Rec: 01/17/22 08:37 DCW [id number]) Manual Assessments Joint Mobility Assessment Joint Mobility Assessment Knee joint mobility limited to max 60? extension. Pt's brace slides down his leg despite multiple attempts to adjust, resulting in his knee extending to 30? when standing due to incorrect fit. Extension restriction on brace switched to 70?, which better allows pt to maintain ROM precautions. PT-OP-G Mobility & Gait Start: 01/16/22 17:34 Freq: Status: Active Protocol: Document 01/16/22 14:30 DCW (Rec: 01/17/22 08:37 DCW [id number]) OP Gait Assessment Gait Gait Assistance Required: Independent Assistive Devices Assistive Device None Orthotic/Prosthetic Devices or Brace: Yes Gait Deviations General Gait Pattern Antalgic Factors Limiting Gait Function Factors Limiting Gait Function Limited Range of Motion Comments Gait Comments Pt ambulates with significant limp secondary to brace limiting extension. Pt not using any crutches, discussed potential of his current ambulation technique causing hip and back pain, pt unsure if he would like to use crutches or not. PT-OP-K Range of Motion Start: 01/16/22 17:34 Freq: Status: Active Protocol: Document 01/16/22 14:30 DCW (Rec: 01/17/22 08:37 DCW [id number]) Knee Goniometric Range of Motion Knee Left Knee ROM WFL No Patient Position Sitting Flexion Active (degrees) 118 Extension Active (degrees) 60 Comments Extension limited to 60? with brace PT-OP-Q Treatments Start: 01/16/22 17:34 Freq: Status: Active Protocol: Document 02/13/22 16:45 DCW (Rec: 02/13/22 17:31 DCW [id number]) Therapeutic Exercises Supine Exercises hip add Supine Exercise Name hooklying with ball Reps/Minutes 2x10 TA tightening Supine Exercise Name TrA w/ 1.PPT 2.BKFO 3. Marching Side bilateral Comments self-monitor medial to ant iliac sp., gentle core, breathe Sidelying Exercises clam Reps/Minutes 2x10 Comments frequent cues for not rocking back Sitting Exercises Marching Sitting Exercise Name Seated marching Side bilateral Resistance 4# 4-Way Ankle Sitting Exercise Name PF/DF, IV/EV Side left Resistance Lvl 3 Tb Reps/Minutes x20 Comments pt self-corrects for controlled eccentric Manual Therapy Treatment Soft Tissue Mobilization L HS Body Location L proximal HS, L Adductor longus Mobilization Type Cross-Friction,Rolling Intensity/Depth Moderate Body Position Hooklying PT-OP-T Assessment and Plan Start: 01/16/22 17:34 Freq: Status: Active Protocol: Document 02/13/22 16:45 DCW (Rec: 02/13/22 17:31 DCW [id number]) Physical Therapy Assessment Goals Two Impairment Pt unable to walk/hike is usual five miles per day 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 LTG Duration 03/18/22 One Impairment Pt does not have an appropriate home exercise program Short Term Goal (STG) Pt to be independent and compliant with an appropriate HEP STG Duration 02/15/22 Assessment Summary Assessment Pt doing pretty well overall, has follow-up with surgeon tomorrow, hoping to receive permission to get rid of brace . Will continue to work on general LE strengthening and mobility without stressing repaired hamstring until receive protocol. Physical Therapy Plan Frequency and Duration Frequency of Treatment 2x/Week Plan of Care Start Date 01/16/22 Plan of Care End Date 03/18/22 Therapeutic Interventions Therapeutic Interventions Aquatic Therapy,Gait Training, Home Exercise Program,Joint Mobilizations,Manual Therapy, Orthotic/Prosthetic Management ,Patient/Caregiver Education, Self-Care/Home Management,Soft Tissue Mobilization, Therapeutic Activities, Therapeutic Exercises Modalities Cold Pack/Ice Massage,Electric Stimulation,Hot Packs, Ultrasound Next Visit Focus/Plan Next Note Type Treatment Note Next Visit Plan Check for physician protocol sent (forms & cards). Gentle strengthening, hip mobility. Neuro training for holding core stable with ADLs and exercise.
--- NOTE | 2022-02-15 17:34 | PT.OTN ---
Current Diagnoses Stiffness of left hip, not elsewhere classified (02/15/22) Stiffness of left knee, not elsewhere classified (02/15/22) Other abnormalities of gait and mobility (02/15/22) Strain of muscle, fascia and tendon of the posterior muscle group at thigh level, left thigh, initial encounter (02/15/22) Physical Therapy Treatment Note PT-OP-A Visit Information Start: 01/16/22 17:34 Freq: Status: Active Protocol: Document 02/15/22 16:45 DCW (Rec: 02/15/22 17:34 DCW [id number]) Out-Patient Physical Therapy Visit Information Visit Information Visit Type Treatment Note Visit Start Time 16:45 Visit Stop Time 17:30 Total Visit Minutes 45 Visit Number 9 Number of OUTBOARD MOTOR TESTER Visits 0 Evaluation Information Evaluation Date 01/16/22 PT-OP-B Current Condition Start: 01/16/22 17:34 Freq: Status: Active Protocol: Document 01/16/22 14:30 DCW (Rec: 01/16/22 17:52 DCW [id number]) Current Condition History of Current Condition Onset Date One month Current Complaints 2 weeks s/p Hamstring tear repair History of Current Condition Pt is a 66 year old male presenting two week s/p left proximal hamstring rupture repair. In the beginning of December, pt was out [facility] during vacation in [place]. Pt felt a pop in his left hamstring, and was seen in a local ED. Was diagnosed with a strain. Pt continued to have pain, was scheduled for an MRI on 12/25/21 and PT on 12/26/21. Pt arrived at his initial PT eval with his MRI results, which stated complete tear of the Hamstring tendons with 4 cm retraction of the muscle. At that time, it was decided to cancel his PT eval until he was seen by an Ortho. Pt was seen soon afterward and underwent surgical repair 01/01. Referral notes limited ROM to not extend further than 60?, and to keep knee immobilizer on at all times. Treatment Goals Patient/Caregiver Goals Return to riding his motorcycle, get back to hiking and walking 5+ miles a day, and to be able to exercise enough to get rid of his weight gain that has occurred since initial injury. PT-OP-C Subjective Start: 01/16/22 17:34 Freq: Status: Active Protocol: Document 02/15/22 16:45 DCW (Rec: 02/15/22 17:34 DCW [id number]) OP-PT Subjective Patient Comments Patient Comments Pt comes in to clinic today without brace, reports his follow-up went well, reports he was told he should walk as much as possible, and shoot more for increased distance, but still shouldn't attack his hamstring. PT-OP-E Functional Tests Start: 01/17/22 08:37 Freq: Status: Active Protocol: Document 01/16/22 14:30 DCW (Rec: 01/17/22 08:38 DCW [id number]) Functional Tests Timed Up and Go (TUG) Score 7.99 Comments Three-trial average (9.10, 7. 16, 7.71) TUG Impairment Rating 0% Impaired (Score 10) PT-OP-F Manual Assessment Start: 01/16/22 17:34 Freq: Status: Active Protocol: Document 01/16/22 14:30 DCW (Rec: 01/17/22 08:37 DCW [id number]) Manual Assessments Joint Mobility Assessment Joint Mobility Assessment Knee joint mobility limited to max 60? extension. Pt's brace slides down his leg despite multiple attempts to adjust, resulting in his knee extending to 30? when standing due to incorrect fit. Extension restriction on brace switched to 70?, which better allows pt to maintain ROM precautions. PT-OP-G Mobility & Gait Start: 01/16/22 17:34 Freq: Status: Active Protocol: Document 01/16/22 14:30 DCW (Rec: 01/17/22 08:37 DCW [id number]) OP Gait Assessment Gait Gait Assistance Required: Independent Assistive Devices Assistive Device None Orthotic/Prosthetic Devices or Brace: Yes Gait Deviations General Gait Pattern Antalgic Factors Limiting Gait Function Factors Limiting Gait Function Limited Range of Motion Comments Gait Comments Pt ambulates with significant limp secondary to brace limiting extension. Pt not using any crutches, discussed potential of his current ambulation technique causing hip and back pain, pt unsure if he would like to use crutches or not. PT-OP-K Range of Motion Start: 01/16/22 17:34 Freq: Status: Active Protocol: Document 01/16/22 14:30 DCW (Rec: 01/17/22 08:37 DCW [id number]) Knee Goniometric Range of Motion Knee Left Knee ROM WFL No Patient Position Sitting Flexion Active (degrees) 118 Extension Active (degrees) 60 Comments Extension limited to 60? with brace PT-OP-Q Treatments Start: 01/16/22 17:34 Freq: Status: Active Protocol: Document 02/15/22 16:45 DCW (Rec: 02/15/22 17:34 DC [id number]) Therapeutic Exercises Supine Exercises hip add Supine Exercise Name hooklying with ball Reps/Minutes 2x10 TA tightening Supine Exercise Name TrA w/ 1. Marching Side bilateral Comments self-monitor medial to ant iliac sp., gentle core, breathe Sidelying Exercises reverse clam Side bilateral clam Side bilateral Comments frequent cues for not rocking back Standing Exercises Hip abduction Standing Exercise Name Abduction Side bilateral Resistance Red TKE Standing Exercise Name TKE Side left Resistance Lv 3 Hamstring curls Standing Exercise Name HS curls Side left Resistance 0# Hip extension Standing Exercise Name Hip extension Side left Resistance 0# Other Exercises Resisted ambulation Other Exercise Name Resisted side-stepping Resistance Red Gait Training Gait Activity Gait Description Gait training Treatment Focus Full knee extension with heel strike PT-OP-T Assessment and Plan Start: 01/16/22 17:34 Freq: Status: Active Protocol: Document 02/15/22 16:45 DCW (Rec: 02/15/22 17:34 [facility] [id number]) Physical Therapy Assessment Goals Two Impairment Pt unable to walk/hike is usual five miles per day 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 LTG Duration 03/18/22 One Impairment Pt does not have an appropriate home exercise program Short Term Goal (STG) Pt to be independent and compliant with an appropriate HEP STG Duration 02/15/22 Assessment Summary Assessment Pt very happy that he no longer has to wear brace, therapist continued to push walking. Pt currently has habit of walking without fully extending left knee due to previous brace use, but responded well to verbal cueing. Physical Therapy Plan Frequency and Duration Frequency of Treatment 2x/Week Plan of Care Start Date 01/16/22 Plan of Care End Date 03/18/22 Therapeutic Interventions Therapeutic Interventions Aquatic Therapy,Gait Training, Home Exercise Program,Joint Mobilizations,Manual Therapy, Orthotic/Prosthetic Management ,Patient/Caregiver Education, Self-Care/Home Management,Soft Tissue Mobilization, Therapeutic Activities, Therapeutic Exercises Modalities Cold Pack/Ice Massage,Electric Stimulation,Hot Packs, Ultrasound Next Visit Focus/Plan Next Note Type Treatment Note Next Visit Plan Check for physician protocol sent (forms & cards). Gentle strengthening, hip mobility. Neuro training for holding core stable with ADLs and exercise.
--- NOTE | 2022-02-19 12:49 | PT.OTN ---
Current Diagnoses Stiffness of left hip, not elsewhere classified (02/19/22) Stiffness of left knee, not elsewhere classified (02/19/22) Other abnormalities of gait and mobility (02/19/22) Strain of muscle, fascia and tendon of the posterior muscle group at thigh level, left thigh, initial encounter (02/19/22) Physical Therapy Treatment Note PT-OP-A Visit Information Start: 01/16/22 17:34 Freq: Status: Active Protocol: Document 02/19/22 12:00 DCW (Rec: 02/19/22 12:49 DCW [id number]) Out-Patient Physical Therapy Visit Information Visit Information Visit Type Treatment Note Visit Start Time 12:00 Visit Stop Time 12:45 Total Visit Minutes 45 Visit Number 10 Number of PICK AND SHOVEL WORKER Visits 0 Evaluation Information Evaluation Date 01/16/22 PT-OP-B Current Condition Start: 01/16/22 17:34 Freq: Status: Active Protocol: Document 01/16/22 14:30 DCW (Rec: 01/16/22 17:52 DCW [id number]) Current Condition History of Current Condition Onset Date One month Current Complaints 2 weeks s/p Hamstring tear repair History of Current Condition Pt is a 66 year old male presenting two week s/p left proximal hamstring rupture repair. In the beginning of December, pt was out [facility] during vacation in [place]. Pt felt a pop in his left hamstring, and was seen in a local ED. Was diagnosed with a strain. Pt continued to have pain, was scheduled for an MRI on 12/25/21 and PT on 12/26/21. Pt arrived at his initial PT eval with his MRI results, which stated complete tear of the Hamstring tendons with 4 cm retraction of the muscle. At that time, it was decided to cancel his PT eval until he was seen by an Ortho. Pt was seen soon afterward and underwent surgical repair 01/01. Referral notes limited ROM to not extend further than 60?, and to keep knee immobilizer on at all times. Treatment Goals Patient/Caregiver Goals Return to riding his motorcycle, get back to hiking and walking 5+ miles a day, and to be able to exercise enough to get rid of his weight gain that has occurred since initial injury. PT-OP-C Subjective Start: 01/16/22 17:34 Freq: Status: Active Protocol: Document 02/19/22 12:00 DCW (Rec: 02/19/22 12:49 DCW [id number]) OP-PT Subjective Patient Comments Patient Comments Pt admits his leg is sore, it 's more muscle soreness, it's not used to working. PT-OP-E Functional Tests Start: 01/17/22 08:37 Freq: Status: Active Protocol: Document 01/16/22 14:30 DCW (Rec: 01/17/22 08:38 DCW [id number]) Functional Tests Timed Up and Go (TUG) Score 7.99 Comments Three-trial average (9.10, 7. 16, 7.71) TUG Impairment Rating 0% Impaired (Score 10) PT-OP-F Manual Assessment Start: 01/16/22 17:34 Freq: Status: Active Protocol: Document 01/16/22 14:30 DCW (Rec: 01/17/22 08:37 DCW [id number]) Manual Assessments Joint Mobility Assessment Joint Mobility Assessment Knee joint mobility limited to max 60? extension. Pt's brace slides down his leg despite multiple attempts to adjust, resulting in his knee extending to 30? when standing due to incorrect fit. Extension restriction on brace switched to 70?, which better allows pt to maintain ROM precautions. PT-OP-G Mobility & Gait Start: 01/16/22 17:34 Freq: Status: Active Protocol: Document 01/16/22 14:30 DCW (Rec: 01/17/22 08:37 DCW [id number]) OP Gait Assessment Gait Gait Assistance Required: Independent Assistive Devices Assistive Device None Orthotic/Prosthetic Devices or Brace: Yes Gait Deviations General Gait Pattern Antalgic Factors Limiting Gait Function Factors Limiting Gait Function Limited Range of Motion Comments Gait Comments Pt ambulates with significant limp secondary to brace limiting extension. Pt not using any crutches, discussed potential of his current ambulation technique causing hip and back pain, pt unsure if he would like to use crutches or not. PT-OP-K Range of Motion Start: 01/16/22 17:34 Freq: Status: Active Protocol: Document 01/16/22 14:30 DCW (Rec: 01/17/22 08:37 DCW [id number]) Knee Goniometric Range of Motion Knee Left Knee ROM WFL No Patient Position Sitting Flexion Active (degrees) 118 Extension Active (degrees) 60 Comments Extension limited to 60? with brace PT-OP-Q Treatments Start: 01/16/22 17:34 Freq: Status: Active Protocol: Document 02/19/22 12:00 DCW (Rec: 02/19/22 12:49 DCW [id number]) Cardio Equipment Recumbent Elliptical (Biodex) Duration (Minutes) 5 Resistance 3 Seat Position 11 Therapeutic Exercises Standing Exercises Hip abduction Standing Exercise Name Abduction Side bilateral Resistance Red TKE Standing Exercise Name TKE Side left Resistance Lv 3 Hamstring curls Standing Exercise Name HS curls Side left Resistance 0# Hip extension Standing Exercise Name Hip extension Side left Resistance 0# Other Exercises Resisted ambulation Other Exercise Name Resisted side-stepping Resistance Red Gait Training Gait Activity Gait Description Gait training Treatment Focus Full knee extension with heel strike Manual Therapy Treatment Soft Tissue Mobilization L HS Body Location L proximal/distal HS, L Adductor longus Mobilization Type Cross-Friction,Rolling Intensity/Depth Moderate Body Position Hooklying PT-OP-T Assessment and Plan Start: 01/16/22 17:34 Freq: Status: Active Protocol: Document 02/19/22 12:00 DCW (Rec: 02/19/22 12:49 DCW [id number]) Physical Therapy Assessment Goals Two Impairment Pt unable to walk/hike is usual five miles per day Long-Term Goal (LTG) Pt to progress to full knee extension, following post-op protocol, in order to normalize gait pattern in order for pt to return to walking or hiking at least five miles a day, which is his preferred leisure activity. LTG Duration 03/18/22 One Impairment Pt does not have an appropriate home exercise program Short Term Goal (STG) Pt to be independent and compliant with an appropriate HEP STG Duration 02/15/22 Assessment Summary Assessment Pt showing some concern regarding his gait pattern, feels his left knee isn't fully extending. Discussed ways to focus on this aspect of gait without hamstring stretches. Pt doing well with working on return to normal gait distances. Physical Therapy Plan Frequency and Duration Frequency of Treatment 2x/Week Plan of Care Start Date 01/16/22 Plan of Care End Date 03/18/22 Therapeutic Interventions Therapeutic Interventions Aquatic Therapy,Gait Training, Home Exercise Program,Joint Mobilizations,Manual Therapy, Orthotic/Prosthetic Management ,Patient/Caregiver Education, Self-Care/Home Management,Soft Tissue Mobilization, Therapeutic Activities, Therapeutic Exercises Modalities Cold Pack/Ice Massage,Electric Stimulation,Hot Packs, Ultrasound Next Visit Focus/Plan Next Note Type Treatment Note Next Visit Plan Check for physician protocol sent (forms & cards). Gentle strengthening, hip mobility. Neuro training for holding core stable with ADLs and exercise.
--- NOTE | 2022-02-22 14:31 | PT.OTN ---
Current Diagnoses Stiffness of left hip, not elsewhere classified (02/22/22) Stiffness of left knee, not elsewhere classified (02/22/22) Other abnormalities of gait and mobility (02/22/22) Strain of muscle, fascia and tendon of the posterior muscle group at thigh level, left thigh, initial encounter (02/22/22) Physical Therapy Treatment Note PT-OP-A Visit Information Start: 01/16/22 17:34 Freq: Status: Active Protocol: Document 02/22/22 13:45 DCW (Rec: 02/22/22 14:31 DCW [id number]) Out-Patient Physical Therapy Visit Information Visit Information Visit Type Treatment Note Visit Start Time 13:45 Visit Stop Time 14:30 Total Visit Minutes 45 Visit Number 11 Number of PRESENTATION DESIGNER Visits 0 Evaluation Information Evaluation Date 01/16/22 PT-OP-B Current Condition Start: 01/16/22 17:34 Freq: Status: Active Protocol: Document 01/16/22 14:30 DCW (Rec: 01/16/22 17:52 DCW [id number]) Current Condition History of Current Condition Onset Date One month Current Complaints 2 weeks s/p Hamstring tear repair History of Current Condition Pt is a 66 year old male presenting two week s/p left proximal hamstring rupture repair. In the beginning of December, pt was out [facility] during vacation in [place]. Pt felt a pop in his left hamstring, and was seen in a local ED. Was diagnosed with a strain. Pt continued to have pain, was scheduled for an MRI on 12/25/21 and PT on 12/26/21. Pt arrived at his initial PT eval with his MRI results, which stated complete tear of the Hamstring tendons with 4 cm retraction of the muscle. At that time, it was decided to cancel his PT eval until he was seen by an Ortho. Pt was seen soon afterward and underwent surgical repair 01/01. Referral notes limited ROM to not extend further than 60?, and to keep knee immobilizer on at all times. Treatment Goals Patient/Caregiver Goals Return to riding his motorcycle, get back to hiking and walking 5+ miles a day, and to be able to exercise enough to get rid of his weight gain that has occurred since initial injury. PT-OP-C Subjective Start: 01/16/22 17:34 Freq: Status: Active Protocol: Document 02/22/22 13:45 DCW (Rec: 02/22/22 14:31 DCW [id number]) OP-PT Subjective Patient Comments Patient Comments Pt feeling pretty good today. Surgeon sent over notes from post-surgical follow-up, which state to begin working on very slow left hamstring strengthening program. PT-OP-E Functional Tests Start: 01/17/22 08:37 Freq: Status: Active Protocol: Document 01/16/22 14:30 DCW (Rec: 01/17/22 08:38 DCW [id number]) Functional Tests Timed Up and Go (TUG) Score 7.99 Comments Three-trial average (9.10, 7. 16, 7.71) TUG Impairment Rating 0% Impaired (Score 10) PT-OP-F Manual Assessment Start: 01/16/22 17:34 Freq: Status: Active Protocol: Document 01/16/22 14:30 DCW (Rec: 01/17/22 08:37 DCW [id number]) Manual Assessments Joint Mobility Assessment Joint Mobility Assessment Knee joint mobility limited to max 60? extension. Pt's brace slides down his leg despite multiple attempts to adjust, resulting in his knee extending to 30? when standing due to incorrect fit. Extension restriction on brace switched to 70?, which better allows pt to maintain ROM precautions. PT-OP-G Mobility & Gait Start: 01/16/22 17:34 Freq: Status: Active Protocol: Document 01/16/22 14:30 DCW (Rec: 01/17/22 08:37 DCW [id number]) OP Gait Assessment Gait Gait Assistance Required: Independent Assistive Devices Assistive Device None Orthotic/Prosthetic Devices or Brace: Yes Gait Deviations General Gait Pattern Antalgic Factors Limiting Gait Function Factors Limiting Gait Function Limited Range of Motion Comments Gait Comments Pt ambulates with significant limp secondary to brace limiting extension. Pt not using any crutches, discussed potential of his current ambulation technique causing hip and back pain, pt unsure if he would like to use crutches or not. PT-OP-K Range of Motion Start: 01/16/22 17:34 Freq: Status: Active Protocol: Document 01/16/22 14:30 DCW (Rec: 01/17/22 08:37 DCW [id number]) Knee Goniometric Range of Motion Knee Left Knee ROM WFL No Patient Position Sitting Flexion Active (degrees) 118 Extension Active (degrees) 60 Comments Extension limited to 60? with brace PT-OP-Q Treatments Start: 01/16/22 17:34 Freq: Status: Active Protocol: Document 02/22/22 13:45 DCW (Rec: 02/22/22 14:31 DCW [id number]) Cardio Equipment Recumbent Elliptical (Biodex) Duration (Minutes) 7 Resistance 5 Seat Position 13 Therapeutic Exercises Supine Exercises hip add Supine Exercise Name hooklying with ball Reps/Minutes 2x10 Sitting Exercises Hamstring Curl Sitting Exercise Name HS Curl Side left Resistance Lv 1 Standing Exercises Hip abduction Standing Exercise Name Abduction Side bilateral Resistance Red TKE Standing Exercise Name TKE Side left Resistance Lv 3 Hamstring curls Standing Exercise Name HS curls Side left Resistance 2# Hip extension Standing Exercise Name Hip extension Side left Resistance Red Other Exercises Resisted ambulation Other Exercise Name Resisted side-stepping Resistance Red Manual Therapy Treatment Soft Tissue Mobilization L HS Body Location L proximal/distal HS, L Adductor longus Mobilization Type Cross-Friction,Rolling Intensity/Depth Moderate Body Position Hooklying PT-OP-T Assessment and Plan Start: 01/16/22 17:34 Freq: Status: Active Protocol: Document 02/22/22 13:45 DCW (Rec: 02/22/22 14:31 DCW [id number]) Physical Therapy Assessment Goals Two Impairment Pt unable to walk/hike is usual five miles per day Customer Solutions Specialist Goal (LTG) Pt to progress to full knee extension, following post-op protocol, in order to normalize gait pattern in order for pt to return to walking or hiking at least five miles a day, which is his preferred leisure activity. LTG Duration 03/18/22 One Impairment Pt does not have an appropriate home exercise program Short Term Goal (STG) Pt to be independent and compliant with an appropriate HEP STG Duration 02/15/22 Assessment Summary Assessment Pt feeling better overall with his function, slowly improving hamstring recruitment and mobility. Physical Therapy Plan Frequency and Duration Frequency of Treatment 2x/Week Plan of Care Start Date 01/16/22 Plan of Care End Date 02/22/22 Therapeutic Interventions Therapeutic Interventions Aquatic Therapy,Gait Training, Home Exercise Program,Joint Mobilizations,Manual Therapy, Orthotic/Prosthetic Management ,Patient/Caregiver Education, Self-Care/Home Management,Soft Tissue Mobilization, Therapeutic Activities, Therapeutic Exercises Modalities Cold Pack/Ice Massage,Electric Stimulation,Hot Packs, Ultrasound Next Visit Focus/Plan Next Note Type Treatment Note Next Visit Plan Slow progression of gentle hamstring strengthening
--- NOTE | 2022-02-26 11:57 | PT.OTN ---
Current Diagnoses Stiffness of left hip, not elsewhere classified (02/26/22) Stiffness of left knee, not elsewhere classified (02/26/22) Other abnormalities of gait and mobility (02/26/22) Strain of muscle, fascia and tendon of the posterior muscle group at thigh level, left thigh, initial encounter (02/26/22) Physical Therapy Treatment Note PT-OP-A Visit Information Start: 01/16/22 17:34 Freq: Status: Active Protocol: Document 02/26/22 11:15 DCW (Rec: 02/26/22 11:57 DCW [id number]) Out-Patient Physical Therapy Visit Information Visit Information Visit Type Treatment Note Visit Start Time 11:15 Visit Stop Time 12:00 Total Visit Minutes 45 Visit Number 12 Number of BULK PALLET BUILDER Visits 0 Evaluation Information Evaluation Date 01/16/22 PT-OP-B Current Condition Start: 01/16/22 17:34 Freq: Status: Active Protocol: Document 01/16/22 14:30 DCW (Rec: 01/16/22 17:52 DCW [id number]) Current Condition History of Current Condition Onset Date One month Current Complaints 2 weeks s/p Hamstring tear repair History of Current Condition Pt is a 66 year old male presenting two week s/p left proximal hamstring rupture repair. In the beginning of December, pt was out [facility] during vacation in [place]. Pt felt a pop in his left hamstring, and was seen in a local ED. Was diagnosed with a strain. Pt continued to have pain, was scheduled for an MRI on 12/25/21 and PT on 12/26/21. Pt arrived at his initial PT eval with his MRI results, which stated complete tear of the Hamstring tendons with 4 cm retraction of the muscle. At that time, it was decided to cancel his PT eval until he was seen by an Ortho. Pt was seen soon afterward and underwent surgical repair 01/01. Referral notes limited ROM to not extend further than 60?, and to keep knee immobilizer on at all times. Treatment Goals Patient/Caregiver Goals Return to riding his motorcycle, get back to hiking and walking 5+ miles a day, and to be able to exercise enough to get rid of his weight gain that has occurred since initial injury. PT-OP-C Subjective Start: 01/16/22 17:34 Freq: Status: Active Protocol: Document 02/26/22 11:15 DCW (Rec: 02/26/22 11:57 DCW [id number]) OP-PT Subjective Patient Comments Patient Comments I played hookey from walking yesterday, but that was the first day I haven't walked since losing my brace. PT-OP-E Functional Tests Start: 01/17/22 08:37 Freq: Status: Active Protocol: Document 01/16/22 14:30 DCW (Rec: 01/17/22 08:38 DCW [id number]) Functional Tests Timed Up and Go (TUG) Score 7.99 Comments Three-trial average (9.10, 7. 16, 7.71) TUG Impairment Rating 0% Impaired (Score 10) PT-OP-F Manual Assessment Start: 01/16/22 17:34 Freq: Status: Active Protocol: Document 01/16/22 14:30 DCW (Rec: 01/17/22 08:37 DCW [id number]) Manual Assessments Joint Mobility Assessment Joint Mobility Assessment Knee joint mobility limited to max 60? extension. Pt's brace slides down his leg despite multiple attempts to adjust, resulting in his knee extending to 30? when standing due to incorrect fit. Extension restriction on brace switched to 70?, which better allows pt to maintain ROM precautions. PT-OP-G Mobility & Gait Start: 01/16/22 17:34 Freq: Status: Active Protocol: Document 01/16/22 14:30 DCW (Rec: 01/17/22 08:37 DCW [id number]) OP Gait Assessment Gait Gait Assistance Required: Independent Assistive Devices Assistive Device None Orthotic/Prosthetic Devices or Brace: Yes Gait Deviations General Gait Pattern Antalgic Factors Limiting Gait Function Factors Limiting Gait Function Limited Range of Motion Comments Gait Comments Pt ambulates with significant limp secondary to brace limiting extension. Pt not using any crutches, discussed potential of his current ambulation technique causing hip and back pain, pt unsure if he would like to use crutches or not. PT-OP-K Range of Motion Start: 01/16/22 17:34 Freq: Status: Active Protocol: Document 01/16/22 14:30 DCW (Rec: 01/17/22 08:37 DCW [id number]) Knee Goniometric Range of Motion Knee Left Knee ROM WFL No Patient Position Sitting Flexion Active (degrees) 118 Extension Active (degrees) 60 Comments Extension limited to 60? with brace PT-OP-Q Treatments Start: 01/16/22 17:34 Freq: Status: Active Protocol: Document 02/26/22 11:15 DCW (Rec: 02/26/22 11:57 DCW [id number]) Cardio Equipment Recumbent Elliptical (Biodex) Duration (Minutes) 5 Resistance 5 Seat Position 12 Gym Equipment Therapeutic Ball Resisted Hip/Knee flexion Exercise Details Resisted hip/knee flexion Ball Size/Color Red - 55 cm Lv 2 Body Position Supine Therapeutic Exercises Supine Exercises hip add Supine Exercise Name hooklying with ball Reps/Minutes 2x10 bridge Supine Exercise Name Bridging Reps/Minutes 2x10 Comments cued glut facilitation Prone Exercises Hip Extension Prone Exercise Name Hip Extension Side bilateral Standing Exercises Hip abduction Standing Exercise Name Abduction Side bilateral Resistance Red TKE Standing Exercise Name TKE Side left Resistance Lv 3 Hamstring curls Standing Exercise Name HS curls Side left Resistance 5# Hip extension Standing Exercise Name Hip extension Side left Resistance Red Other Exercises Resisted ambulation Other Exercise Name Resisted side-stepping Resistance Red Manual Therapy Treatment Soft Tissue Mobilization L HS Body Location L proximal/distal HS, L Adductor longus Mobilization Type Cross-Friction,Rolling Intensity/Depth Moderate Body Position Hooklying PT-OP-T Assessment and Plan Start: 01/16/22 17:34 Freq: Status: Active Protocol: Document 02/26/22 11:15 DCW (Rec: 02/26/22 11:57 DCW [id number]) Physical Therapy Assessment Goals Two Impairment Pt unable to walk/hike is usual five miles per day Fly Frame Tender Goal (LTG) Pt to progress to full knee extension, following post-op protocol, in order to normalize gait pattern in order for pt to return to walking or hiking at least five miles a day, which is his preferred leisure activity. LTG Duration 03/18/22 One Impairment Pt does not have an appropriate home exercise program Short Term Goal (STG) Pt to be independent and compliant with an appropriate HEP STG Duration 02/15/22 Assessment Summary Assessment Pt responding well to slow increases in strengthening and resistance in left hamstring. Fatigued by end of session but no complaints of pain. Physical Therapy Plan Frequency and Duration Frequency of Treatment 2x/Week Plan of Care Start Date 01/16/22 Plan of Care End Date 03/18/22 Therapeutic Interventions Therapeutic Interventions Aquatic Therapy,Gait Training, Home Exercise Program,Joint Mobilizations,Manual Therapy, Orthotic/Prosthetic Management ,Patient/Caregiver Education, Self-Care/Home Management,Soft Tissue Mobilization, Therapeutic Activities, Therapeutic Exercises Modalities Cold Pack/Ice Massage,Electric Stimulation,Hot Packs, Ultrasound Next Visit Focus/Plan Next Note Type Treatment Note Next Visit Plan Slow progression of gentle hamstring strengthening
--- NOTE | 2022-03-01 14:31 | PT.OTN ---
Current Diagnoses Stiffness of left hip, not elsewhere classified (03/01/22) Stiffness of left knee, not elsewhere classified (03/01/22) Other abnormalities of gait and mobility (03/01/22) Strain of muscle, fascia and tendon of the posterior muscle group at thigh level, left thigh, initial encounter (03/01/22) Physical Therapy Treatment Note PT-OP-A Visit Information Start: 01/16/22 17:34 Freq: Status: Active Protocol: Document 03/01/22 13:45 DCW (Rec: 03/01/22 14:31 DCW [id number]) Out-Patient Physical Therapy Visit Information Visit Information Visit Type Treatment Note Visit Start Time 13:45 Visit Stop Time 14:30 Total Visit Minutes 45 Visit Number 13 Number of SOLUTION MAKE UP OPERATOR Visits 0 Evaluation Information Evaluation Date 01/16/22 PT-OP-B Current Condition Start: 01/16/22 17:34 Freq: Status: Active Protocol: Document 01/16/22 14:30 DCW (Rec: 01/16/22 17:52 DCW [id number]) Current Condition History of Current Condition Onset Date One month Current Complaints 2 weeks s/p Hamstring tear repair History of Current Condition Pt is a 66 year old male presenting two week s/p left proximal hamstring rupture repair. In the beginning of December, pt was out [facility] during vacation in [place]. Pt felt a pop in his left hamstring, and was seen in a local ED. Was diagnosed with a strain. Pt continued to have pain, was scheduled for an MRI on 12/25/21 and PT on 12/26/21. Pt arrived at his initial PT eval with his MRI results, which stated complete tear of the Hamstring tendons with 4 cm retraction of the muscle. At that time, it was decided to cancel his PT eval until he was seen by an Ortho. Pt was seen soon afterward and underwent surgical repair 01/01. Referral notes limited ROM to not extend further than 60?, and to keep knee immobilizer on at all times. Treatment Goals Patient/Caregiver Goals Return to riding his motorcycle, get back to hiking and walking 5+ miles a day, and to be able to exercise enough to get rid of his weight gain that has occurred since initial injury. PT-OP-C Subjective Start: 01/16/22 17:34 Freq: Status: Active Protocol: Document 03/01/22 13:45 DCW (Rec: 03/01/22 14:31 DCW [id number]) OP-PT Subjective Patient Comments Patient Comments Since I started after surgery , I've been able to shave 5 minutes per mile off my time. PT-OP-E Functional Tests Start: 01/17/22 08:37 Freq: Status: Active Protocol: Document 01/16/22 14:30 DCW (Rec: 01/17/22 08:38 DCW [id number]) Functional Tests Timed Up and Go (TUG) Score 7.99 Comments Three-trial average (9.10, 7. 16, 7.71) TUG Impairment Rating 0% Impaired (Score 10) PT-OP-F Manual Assessment Start: 01/16/22 17:34 Freq: Status: Active Protocol: Document 01/16/22 14:30 DCW (Rec: 01/17/22 08:37 DCW [id number]) Manual Assessments Joint Mobility Assessment Joint Mobility Assessment Knee joint mobility limited to max 60? extension. Pt's brace slides down his leg despite multiple attempts to adjust, resulting in his knee extending to 30? when standing due to incorrect fit. Extension restriction on brace switched to 70?, which better allows pt to maintain ROM precautions. PT-OP-G Mobility & Gait Start: 01/16/22 17:34 Freq: Status: Active Protocol: Document 01/16/22 14:30 DCW (Rec: 01/17/22 08:37 DCW [id number]) OP Gait Assessment Gait Gait Assistance Required: Independent Assistive Devices Assistive Device None Orthotic/Prosthetic Devices or Brace: Yes Gait Deviations General Gait Pattern Antalgic Factors Limiting Gait Function Factors Limiting Gait Function Limited Range of Motion Comments Gait Comments Pt ambulates with significant limp secondary to brace limiting extension. Pt not using any crutches, discussed potential of his current ambulation technique causing hip and back pain, pt unsure if he would like to use crutches or not. PT-OP-K Range of Motion Start: 01/16/22 17:34 Freq: Status: Active Protocol: Document 01/16/22 14:30 DCW (Rec: 01/17/22 08:37 DCW [id number]) Knee Goniometric Range of Motion Knee Left Knee ROM WFL No Patient Position Sitting Flexion Active (degrees) 118 Extension Active (degrees) 60 Comments Extension limited to 60? with brace PT-OP-Q Treatments Start: 01/16/22 17:34 Freq: Status: Active Protocol: Document 03/01/22 13:45 DCW (Rec: 03/01/22 14:31 DCW [id number]) Cardio Equipment Recumbent Elliptical (Biodex) Duration (Minutes) 5 Resistance 5 Seat Position 12 Gym Equipment Shuttle Balance Red Details WBOS, Staggered Therapeutic Ball Resisted Hip/Knee flexion Exercise Details Resisted hip/knee flexion Ball Size/Color Red - 55 cm Lv 2 Body Position Supine Therapeutic Exercises Supine Exercises bridge Supine Exercise Name Bridging Equipment Used on T-ball Reps/Minutes 2x10 Comments cued glut facilitation Standing Exercises Hip abduction Standing Exercise Name Abduction Side bilateral Resistance Red TKE Standing Exercise Name TKE Side left Resistance Lv 4 Hamstring curls Standing Exercise Name HS curls Side left Resistance 5# Hip extension Standing Exercise Name Hip extension Side left Resistance Red Other Exercises Resisted ambulation Other Exercise Name Resisted side-stepping Resistance Green Manual Therapy Treatment Soft Tissue Mobilization L HS Body Location L proximal/distal HS, L Adductor longus Mobilization Type Cross-Friction,Rolling Intensity/Depth Moderate Body Position Hooklying PT-OP-T Assessment and Plan Start: 01/16/22 17:34 Freq: Status: Active Protocol: Document 03/01/22 13:45 DCW (Rec: 03/01/22 14:31 DCW [id number]) Physical Therapy Assessment Goals Two Impairment Pt unable to walk/hike is usual five miles per day Usp Goal (LTG) Pt to progress to full knee extension, following post-op protocol, in order to normalize gait pattern in order for pt to return to walking or hiking at least five miles a day, which is his preferred leisure activity. LTG Duration 03/18/22 One Impairment Pt does not have an appropriate home exercise program Short Term Goal (STG) Pt to be independent and compliant with an appropriate HEP STG Duration 02/15/22 Assessment Summary Assessment Pt doing well with increasing resistance on left leg strengthening, getting fatigued but no complaints of pain. Physical Therapy Plan Frequency and Duration Frequency of Treatment 2x/Week Plan of Care Start Date 01/16/22 Plan of Care End Date 03/18/22 Therapeutic Interventions Therapeutic Interventions Aquatic Therapy,Gait Training, Home Exercise Program,Joint Mobilizations,Manual Therapy, Orthotic/Prosthetic Management ,Patient/Caregiver Education, Self-Care/Home Management,Soft Tissue Mobilization, Therapeutic Activities, Therapeutic Exercises Modalities Cold Pack/Ice Massage,Electric Stimulation,Hot Packs, Ultrasound Next Visit Focus/Plan Next Note Type Treatment Note Next Visit Plan Slow progression of gentle hamstring strengthening
--- NOTE | 2022-03-13 12:57 | PT.OTN ---
Current Diagnoses Stiffness of left hip, not elsewhere classified (03/13/22) Stiffness of left knee, not elsewhere classified (03/13/22) Other abnormalities of gait and mobility (03/13/22) Strain of muscle, fascia and tendon of the posterior muscle group at thigh level, left thigh, initial encounter (03/13/22) Physical Therapy Treatment Note PT-OP-A Visit Information Start: 01/16/22 17:34 Freq: Status: Active Protocol: Document 03/13/22 10:30 DCW (Rec: 03/13/22 11:15 DCW [id number]) Out-Patient Physical Therapy Visit Information Visit Information Visit Type Treatment Note Visit Start Time 10:30 Visit Stop Time 11:15 Total Visit Minutes 45 Visit Number 14 Number of DOOR TRIMMER Visits 0 Evaluation Information Evaluation Date 01/16/22 PT-OP-B Current Condition Start: 01/16/22 17:34 Freq: Status: Active Protocol: Document 01/16/22 14:30 DCW (Rec: 01/16/22 17:52 DCW [id number]) Current Condition History of Current Condition Onset Date One month Current Complaints 2 weeks s/p Hamstring tear repair History of Current Condition Pt is a 66 year old male presenting two week s/p left proximal hamstring rupture repair. In the beginning of December, pt was out [facility] during vacation in [place]. Pt felt a pop in his left hamstring, and was seen in a local ED. Was diagnosed with a strain. Pt continued to have pain, was scheduled for an MRI on 12/25/21 and PT on 12/26/21. Pt arrived at his initial PT eval with his MRI results, which stated complete tear of the Hamstring tendons with 4 cm retraction of the muscle. At that time, it was decided to cancel his PT eval until he was seen by an Ortho. Pt was seen soon afterward and underwent surgical repair 01/01. Referral notes limited ROM to not extend further than 60?, and to keep knee immobilizer on at all times. Treatment Goals Patient/Caregiver Goals Return to riding his motorcycle, get back to hiking and walking 5+ miles a day, and to be able to exercise enough to get rid of his weight gain that has occurred since initial injury. PT-OP-C Subjective Start: 01/16/22 17:34 Freq: Status: Active Protocol: Document 03/13/22 10:30 DCW (Rec: 03/13/22 11:15 DCW [id number]) OP-PT Subjective Patient Comments Patient Comments Pt feeling pretty good overall , still struggling a little bit with walking, feels his left leg snaps forward awkwardly PT-OP-E Functional Tests Start: 01/17/22 08:37 Freq: Status: Active Protocol: Document 01/16/22 14:30 DCW (Rec: 01/17/22 08:38 DCW [id number]) Functional Tests Timed Up and Go (TUG) Score 7.99 Comments Three-trial average (9.10, 7. 16, 7.71) TUG Impairment Rating 0% Impaired (Score 10) PT-OP-F Manual Assessment Start: 01/16/22 17:34 Freq: Status: Active Protocol: Document 03/13/22 10:30 DCW (Rec: 03/13/22 12:54 DCW [id number]) Manual Assessments Joint Mobility Assessment Joint Mobility Assessment Knee extension returning to WNL, still limited to 16? extension. PT-OP-G Mobility & Gait Start: 01/16/22 17:34 Freq: Status: Active Protocol: Document 03/13/22 10:30 DCW (Rec: 03/13/22 12:54 DCW [id number]) OP Gait Assessment Comments Gait Comments Mild antalgia, pt walking 2-3 miles daily, no assistive device PT-OP-K Range of Motion Start: 01/16/22 17:34 Freq: Status: Active Protocol: Document 03/13/22 10:30 DCW (Rec: 03/13/22 12:54 DCW [id number]) Knee Goniometric Range of Motion Knee Left Patient Position 121 Extension Active (degrees) 16 PT-OP-Q Treatments Start: 01/16/22 17:34 Freq: Status: Active Protocol: Document 03/13/22 10:30 DCW (Rec: 03/13/22 11:15 DCW [id number]) Cardio Equipment Elliptical Duration (Minutes) 5 Resistance 4 Gym Equipment Shuttle Balance Red Details WBOS, Staggered Therapeutic Exercises Supine Exercises bridge Supine Exercise Name Bridging Reps/Minutes 2x10 Comments cued glut facilitation Standing Exercises Hip abduction Standing Exercise Name Abduction Side bilateral Resistance Red TKE Standing Exercise Name TKE Side left Resistance Lv 4 Hamstring curls Standing Exercise Name HS curls Side left Resistance 10# Hip extension Standing Exercise Name Hip extension Side left Resistance Red Other Exercises Resisted ambulation Other Exercise Name Resisted side-stepping Resistance Blue Manual Therapy Treatment Soft Tissue Mobilization L HS Body Location L proximal/distal HS, L Adductor longus Mobilization Type Cross-Friction,Rolling Intensity/Depth Moderate Body Position Hooklying PT-OP-T Assessment and Plan Start: 01/16/22 17:34 Freq: Status: Active Protocol: Document 03/13/22 10:30 DCW (Rec: 03/13/22 12:57 DCW [id number]) Physical Therapy Assessment Goals Two Impairment Pt unable to walk/hike is usual five miles per day Fpc Goal (LTG) Pt to progress to full knee extension, following post-op protocol, in order to normalize gait pattern in order for pt to return to walking or hiking at least five miles a day, which is his preferred leisure activity. LTG Duration 05/13/22 - Improving, limited to 16? ext One Impairment Pt does not have an appropriate home exercise program Short Term Goal (STG) Pt to be independent and compliant with an appropriate HEP STG Duration Met Assessment Summary Assessment Pt making great progress overall, significant improvement with ROM and gait, still slowly building up hamstring strength following surgical reattachment. Pt responding well to gentle increases in strength/ resistance. Continue to focus on increasing knee extension and quad/hamstring strength as tolerated. Physical Therapy Plan Frequency and Duration Frequency of Treatment 2x/Week Plan of Care Start Date 03/13/22 Plan of Care End Date 05/13/21 Therapeutic Interventions Therapeutic Interventions Aquatic Therapy,Gait Training, Home Exercise Program,Joint Mobilizations,Manual Therapy, Orthotic/Prosthetic Management ,Patient/Caregiver Education, Self-Care/Home Management,Soft Tissue Mobilization, Therapeutic Activities, Therapeutic Exercises Modalities Cold Pack/Ice Massage,Electric Stimulation,Hot Packs, Ultrasound Next Visit Focus/Plan Next Note Type Treatment Note Next Visit Plan Slow progression of gentle hamstring strengthening
--- NOTE | 2022-03-13 12:57 | PT.OPPOC ---
Physical, Occupational & Speech Therapy At [facility] Current Diagnoses Stiffness of left hip, not elsewhere classified (03/13/22) Stiffness of left knee, not elsewhere classified (03/13/22) Other abnormalities of gait and mobility (03/13/22) Strain of muscle, fascia and tendon of the posterior muscle group at thigh level, left thigh, initial encounter (03/13/22) Visit Care Team Role Provider Type Buck Baca MD Family Provider Physician Primary Care Provider Specialty: Family Practice Address: [facility] [place], [address] Email: [email or web address] [email or web address] PA-C Attending Provider Advanced Missile Inspector Preflight Referring Provider Specialty: Orthopedics Orthopedic Surgery Address: [address] [place] [address], [id number] Email: [email or web address] Plan Of Care PT-OP-T Assessment and Plan Start: 01/16/22 17:34 Freq: Status: Active Protocol: Document 03/13/22 10:30 DCW (Rec: 03/13/22 12:57 DCW [id number]) Physical Therapy Assessment Goals Two Impairment Pt unable to walk/hike is usual five miles per day Shelter Goal (LTG) Pt to progress to full knee extension, following post-op protocol, in order to normalize gait pattern in order for pt to return to walking or hiking at least five miles a day, which is his preferred leisure activity. LTG Duration 05/13/22 - Improving, limited to 16? ext One Impairment Pt does not have an appropriate home exercise program Short Term Goal (STG) Pt to be independent and compliant with an appropriate HEP STG Duration Met Assessment Summary Assessment Pt making great progress overall, significant improvement with ROM and gait, still slowly building up hamstring strength following surgical reattachment. Pt responding well to gentle increases in strength/ resistance. Continue to focus on increasing knee extension and quad/hamstring strength as tolerated. Physical Therapy Plan Frequency and Duration Frequency of Treatment 2x/Week Plan of Care Start Date 03/13/22 Plan of Care End Date 05/13/21 Therapeutic Interventions Therapeutic Interventions Aquatic Therapy,Gait Training, Home Exercise Program,Joint Mobilizations,Manual Therapy, Orthotic/Prosthetic Management ,Patient/Caregiver Education, Self-Care/Home Management,Soft Tissue Mobilization, Therapeutic Activities, Therapeutic Exercises Modalities Cold Pack/Ice Massage,Electric Stimulation,Hot Packs, Ultrasound Next Visit Focus/Plan Next Note Type Treatment Note Next Visit Plan Slow progression of gentle hamstring strengthening Plan of Care Dates Plan of Care Start Date 03/13/22 Plan of Care End Date 05/13/21 Electronically Signed by: Denny Godfrey, PT 03/13/22 1257 If you are in agreement with this Plan of Care, please return a signed and dated copy. I have reviewed this Plan of Care and certify that the skilled therapy services above are required to meet the patient?s needs. Physician Signature Date Printed Name and Credentials Clinical Instructor Signature Printed Name and Credentials
--- NOTE | 2022-03-16 10:51 | PT.OTN ---
Current Diagnoses Stiffness of left hip, not elsewhere classified (03/16/22) Stiffness of left knee, not elsewhere classified (03/16/22) Other abnormalities of gait and mobility (03/16/22) Strain of muscle, fascia and tendon of the posterior muscle group at thigh level, left thigh, initial encounter (03/16/22) Physical Therapy Treatment Note PT-OP-A Visit Information Start: 01/16/22 17:34 Freq: Status: Active Protocol: Document 03/16/22 10:01 NBM (Rec: 03/16/22 10:51 NBM [id number]) Out-Patient Physical Therapy Visit Information Visit Information Visit Type Treatment Note Visit Start Time 10:02 Visit Stop Time 10:47 Total Visit Minutes 45 Visit Number 15 Number of DISTRICT EXTENSION SERVICE AGENT Visits 1 Evaluation Information Evaluation Date 01/16/22 PT-OP-B Current Condition Start: 01/16/22 17:34 Freq: Status: Active Protocol: Document 01/16/22 14:30 DCW (Rec: 01/16/22 17:52 DCW [id number]) Current Condition History of Current Condition Onset Date One month Current Complaints 2 weeks s/p Hamstring tear repair History of Current Condition Pt is a 66 year old male presenting two week s/p left proximal hamstring rupture repair. In the beginning of December, pt was out [facility] during vacation in [place]. Pt felt a pop in his left hamstring, and was seen in a local ED. Was diagnosed with a strain. Pt continued to have pain, was scheduled for an MRI on 12/25/21 and PT on 12/26/21. Pt arrived at his initial PT eval with his MRI results, which stated complete tear of the Hamstring tendons with 4 cm retraction of the muscle. At that time, it was decided to cancel his PT eval until he was seen by an Ortho. Pt was seen soon afterward and underwent surgical repair 01/01. Referral notes limited ROM to not extend further than 60?, and to keep knee immobilizer on at all times. Treatment Goals Patient/Caregiver Goals Return to riding his motorcycle, get back to hiking and walking 5+ miles a day, and to be able to exercise enough to get rid of his weight gain that has occurred since initial injury. PT-OP-C Subjective Start: 01/16/22 17:34 Freq: Status: Active Protocol: Document 03/16/22 10:01 NBM (Rec: 03/16/22 10:51 [facility] [id number]) OP-PT Subjective Patient Comments Patient Comments Pt states since the surgery when he walks his leg does a snap as it gets straight. He's doing his walking and gets pretty tired doing that. He used to walk at 14-15 min miles and is currently about 19-minute miles. At the beginning of his recovery he was at 25-min miles. Arthritis in other hip is bothering him more and will stop him in his tracks on his walks when it kicks in. PT-OP-E Functional Tests Start: 01/17/22 08:37 Freq: Status: Active Protocol: Document 01/16/22 14:30 DCW (Rec: 01/17/22 08:38 DCW [id number]) Functional Tests Timed Up and Go (TUG) Score 7.99 Comments Three-trial average (9.10, 7. 16, 7.71) TUG Impairment Rating 0% Impaired (Score 10) PT-OP-F Manual Assessment Start: 01/16/22 17:34 Freq: Status: Active Protocol: Document 03/13/22 10:30 DCW (Rec: 03/13/22 12:54 DCW [id number]) Manual Assessments Joint Mobility Assessment Joint Mobility Assessment Knee extension returning to WNL, still limited to 16? extension. PT-OP-G Mobility & Gait Start: 01/16/22 17:34 Freq: Status: Active Protocol: Document 03/13/22 10:30 DCW (Rec: 03/13/22 12:54 DCW [id number]) OP Gait Assessment Comments Gait Comments Mild antalgia, pt walking 2-3 miles daily, no assistive device PT-OP-K Range of Motion Start: 01/16/22 17:34 Freq: Status: Active Protocol: Document 03/13/22 10:30 DCW (Rec: 03/13/22 12:54 DCW [id number]) Knee Goniometric Range of Motion Knee Left Patient Position 121 Extension Active (degrees) 16 PT-OP-Q Treatments Start: 01/16/22 17:34 Freq: Status: Active Protocol: Document 03/16/22 10:01 NBM (Rec: 03/16/22 10:51 [facility] [id number]) Cardio Equipment Elliptical Duration (Minutes) 5 Resistance 6 Therapeutic Exercises Standing Exercises Squat Standing Exercise Name sit to stand; eccentric chair tap attempted Comments cues for foot positioning, controlled eccentric - challenging Stretch Standing Exercise Name 1. Wall stretch 2. Standing HS stretch 3. seated HS stretch Comments for HEP - HO declined. cues for foot positioning. Hip abduction Standing Exercise Name Abduction Side bilateral Resistance Red TKE Standing Exercise Name TKE Side left Resistance Lv 4 Reps/Minutes x10 AROM, 5x5 SH Hamstring curls Standing Exercise Name HS curls Side left Resistance 10# Reps/Minutes [id number] Hip extension Standing Exercise Name Hip extension Side left Resistance Red Other Exercises Resisted ambulation Other Exercise Name Resisted side-stepping Resistance Blue PT-OP-T Assessment and Plan Start: 01/16/22 17:34 Freq: Status: Active Protocol: Document 03/16/22 10:01 [facility] (Rec: 03/16/22 10:51 [facility] [id number]) Physical Therapy Assessment Goals Two Impairment Pt unable to walk/hike is usual five miles per day Conduit Cleaner Goal (LTG) Pt to progress to full knee extension, following post-op protocol, in order to normalize gait pattern in order for pt to return to walking or hiking at least five miles a day, which is his preferred leisure activity. LTG Duration 05/13/22 - Improving, limited to 16? ext One Impairment Pt does not have an appropriate home exercise program Short Term Goal (STG) Pt to be independent and compliant with an appropriate HEP STG Duration Met Assessment Summary Assessment Pt is tolerating treatment well but continues to require cues for neutral foot positioning and lateral leaning w/ resisted hip abduction and sidestepping - upright posture improves w/ visual feedback. Pt demonstrates calf and hamstring tightness and requires initial cues for stretching but improved self- awareness for foot positioning by end of session. Physical Therapy Plan Frequency and Duration Frequency of Treatment 2x/Week Plan of Care Start Date 03/13/22 Plan of Care End Date 05/13/21 Next Visit Focus/Plan Next Note Type Treatment Note Next Visit Plan Slow progression of gentle hamstring strengthening
--- NOTE | 2022-03-19 15:55 | PT.OTN ---
Current Diagnoses Stiffness of left hip, not elsewhere classified (03/19/22) Stiffness of left knee, not elsewhere classified (03/19/22) Other abnormalities of gait and mobility (03/19/22) Strain of muscle, fascia and tendon of the posterior muscle group at thigh level, left thigh, initial encounter (03/19/22) Physical Therapy Treatment Note PT-OP-A Visit Information Start: 01/16/22 17:34 Freq: Status: Active Protocol: Document 03/19/22 14:34 NBM (Rec: 03/19/22 15:54 NBM [id number]) Out-Patient Physical Therapy Visit Information Visit Information Visit Type Treatment Note Visit Start Time 14:34 Visit Stop Time 15:15 Total Visit Minutes 41 Visit Number 16 Number of CORRECTIONS UNIT SUPERVISOR Visits 2 PT-OP-B Current Condition Start: 01/16/22 17:34 Freq: Status: Active Protocol: Document 01/16/22 14:30 DCW (Rec: 01/16/22 17:52 DCW [id number]) Current Condition History of Current Condition Onset Date One month Current Complaints 2 weeks s/p Hamstring tear repair History of Current Condition Pt is a 66 year old male presenting two week s/p left proximal hamstring rupture repair. In the beginning of December, pt was out [facility] during vacation in [place]. Pt felt a pop in his left hamstring, and was seen in a local ED. Was diagnosed with a strain. Pt continued to have pain, was scheduled for an MRI on 12/25/21 and PT on 12/26/21. Pt arrived at his initial PT eval with his MRI results, which stated complete tear of the Hamstring tendons with 4 cm retraction of the muscle. At that time, it was decided to cancel his PT eval until he was seen by an Ortho. Pt was seen soon afterward and underwent surgical repair 01/01. Referral notes limited ROM to not extend further than 60?, and to keep knee immobilizer on at all times. Treatment Goals Patient/Caregiver Goals Return to riding his motorcycle, get back to hiking and walking 5+ miles a day, and to be able to exercise enough to get rid of his weight gain that has occurred since initial injury. PT-OP-C Subjective Start: 01/16/22 17:34 Freq: Status: Active Protocol: Document 03/19/22 14:34 NBM (Rec: 03/19/22 15:54 NBM [id number]) OP-PT Subjective Patient Comments Patient Comments Pt states he has been stretching and had his best time since surgery this morning for walking a mile in 16min 20s. When he first started after recovery he had 25-min miles. He still has the snapping feeling on his L leg , but notices he can make his R leg do it too. He stretches before and after his walk with his toes forward and tries to walk more with his toes forward and notices he gets sore on the inside of his thigh. Pt states he tries to brace his abs when he walks which has helped with back pain. PT-OP-E Functional Tests Start: 01/17/22 08:37 Freq: Status: Active Protocol: Document 01/16/22 14:30 DCW (Rec: 01/17/22 08:38 DCW [id number]) Functional Tests Timed Up and Go (TUG) Score 7.99 Comments Three-trial average (9.10, 7. 16, 7.71) TUG Impairment Rating 0% Impaired (Score 10) PT-OP-F Manual Assessment Start: 01/16/22 17:34 Freq: Status: Active Protocol: Document 03/13/22 10:30 DCW (Rec: 03/13/22 12:54 DCW [id number]) Manual Assessments Joint Mobility Assessment Joint Mobility Assessment Knee extension returning to WNL, still limited to 16? extension. PT-OP-G Mobility & Gait Start: 01/16/22 17:34 Freq: Status: Active Protocol: Document 03/13/22 10:30 DCW (Rec: 03/13/22 12:54 DCW [id number]) OP Gait Assessment Comments Gait Comments Mild antalgia, pt walking 2-3 miles daily, no assistive device PT-OP-K Range of Motion Start: 01/16/22 17:34 Freq: Status: Active Protocol: Document 03/13/22 10:30 DCW (Rec: 03/13/22 12:54 DCW [id number]) Knee Goniometric Range of Motion Knee Left Patient Position 121 Extension Active (degrees) 16 PT-OP-Q Treatments Start: 01/16/22 17:34 Freq: Status: Active Protocol: Document 03/19/22 14:34 NBM (Rec: 03/19/22 15:54 [facility] [id number]) Cardio Equipment Elliptical Duration (Minutes) 7 Resistance 6 Other Resistance 1 first 5' Therapeutic Exercises Sitting Exercises 4-Way Ankle Sitting Exercise Name PF/DF, IV/EV Side bilateral Resistance Lvl 3 Tb Reps/Minutes x8 ea Comments pt self-corrects for controlled eccentric Standing Exercises Squat Standing Exercise Name sit to stand (try eccentric chair taps next time) Resistance no UE support Equipment Used mesh chair, perdomo foam Reps/Minutes 2 x 5 reps Comments vc controlled eccentric Stretch Standing Exercise Name 1. Wall stretch 2. Standing HS stretch 3. seated HS stretch Comments HEP review Hamstring curls Standing Exercise Name HS curls Side left Resistance 10# Equipment Used mirror Reps/Minutes [id number] Comments cues for controlled eccentric and hip rot. Hip extension Standing Exercise Name Hip extension Side left Resistance Red Comments added to HEP Other Exercises Resisted ambulation Other Exercise Name Resisted side-stepping Resistance Blue Comments added to HEP Self-Care/Home Management Treatment Education Patient Education Home Exercise Program Other Education Discussed TrA engagement for core stability not bracing all abs. Added to HEP: Hip extension, Resisted sidestepping - HO given. 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 LTG Duration 05/13/22 - Improving, limited to 16? ext One Impairment Pt does not have an appropriate home exercise program Short Term Goal (STG) Pt to be independent and compliant with an appropriate HEP STG Duration Met Assessment Summary Assessment Pt demonstrates improved self- awareness of foot positioning with stretching and walking. His time for walking a mile has improved from about 19 min 03/16 to 16.5 min today. Pt requires cues for hip rotation w/ stretching and hamstring curls, and lateral lean w/ resisted sidesteps. Reviewed TrA engagement for core stability is not bracing all abdominals. Added to HEP: Hip extension, Resisted sidestepping - HO given. Physical Therapy Plan Frequency and Duration Frequency of Treatment 2x/Week Plan of Care Start Date 03/13/22 Plan of Care End Date 05/13/21 Therapeutic Interventions Therapeutic Interventions Aquatic Therapy,Gait Training, Home Exercise Program,Joint Mobilizations,Manual Therapy, Orthotic/Prosthetic Management ,Patient/Caregiver Education, Self-Care/Home Management,Soft Tissue Mobilization, Therapeutic Activities, Therapeutic Exercises Modalities Cold Pack/Ice Massage,Electric Stimulation,Hot Packs, Ultrasound Next Visit Focus/Plan Next Note Type Treatment Note Next Visit Plan consider eccentric chair taps w/ perdomo foam Slow progression of gentle hamstring strengthening
--- NOTE | 2022-03-21 10:29 | PT.OTN ---
Current Diagnoses Stiffness of left hip, not elsewhere classified (03/21/22) Stiffness of left knee, not elsewhere classified (03/21/22) Other abnormalities of gait and mobility (03/21/22) Strain of muscle, fascia and tendon of the posterior muscle group at thigh level, left thigh, initial encounter (03/21/22) Physical Therapy Treatment Note PT-OP-A Visit Information Start: 01/16/22 17:34 Freq: Status: Active Protocol: Document 03/21/22 09:45 DCW (Rec: 03/21/22 10:29 DCW [id number]) Out-Patient Physical Therapy Visit Information Visit Information Visit Type Treatment Note Visit Start Time 09:45 Visit Stop Time 10:30 Total Visit Minutes 45 Visit Number 17 Number of CUSTOMS VERIFIER Visits 0 Evaluation Information Evaluation Date 01/16/22 PT-OP-B Current Condition Start: 01/16/22 17:34 Freq: Status: Active Protocol: Document 01/16/22 14:30 DCW (Rec: 01/16/22 17:52 DCW [id number]) Current Condition History of Current Condition Onset Date One month Current Complaints 2 weeks s/p Hamstring tear repair History of Current Condition Pt is a 66 year old male presenting two week s/p left proximal hamstring rupture repair. In the beginning of December, pt was out [facility] during vacation in [place]. Pt felt a pop in his left hamstring, and was seen in a local ED. Was diagnosed with a strain. Pt continued to have pain, was scheduled for an MRI on 12/25/21 and PT on 12/26/21. Pt arrived at his initial PT eval with his MRI results, which stated complete tear of the Hamstring tendons with 4 cm retraction of the muscle. At that time, it was decided to cancel his PT eval until he was seen by an Ortho. Pt was seen soon afterward and underwent surgical repair 01/01. Referral notes limited ROM to not extend further than 60?, and to keep knee immobilizer on at all times. Treatment Goals Patient/Caregiver Goals Return to riding his motorcycle, get back to hiking and walking 5+ miles a day, and to be able to exercise enough to get rid of his weight gain that has occurred since initial injury. PT-OP-C Subjective Start: 01/16/22 17:34 Freq: Status: Active Protocol: Document 03/21/22 09:45 DCW (Rec: 03/21/22 10:29 DCW [id number]) OP-PT Subjective Patient Comments Patient Comments Pt reports that he is feeling good today, his right hip isn' t bothering him quite as much today. Hamstring is a little sore from performing curls. PT-OP-E Functional Tests Start: 01/17/22 08:37 Freq: Status: Active Protocol: Document 01/16/22 14:30 DCW (Rec: 01/17/22 08:38 DCW [id number]) Functional Tests Timed Up and Go (TUG) Score 7.99 Comments Three-trial average (9.10, 7. 16, 7.71) TUG Impairment Rating 0% Impaired (Score 10) PT-OP-F Manual Assessment Start: 01/16/22 17:34 Freq: Status: Active Protocol: Document 03/13/22 10:30 DCW (Rec: 03/13/22 12:54 DCW [id number]) Manual Assessments Joint Mobility Assessment Joint Mobility Assessment Knee extension returning to WNL, still limited to 16? extension. PT-OP-G Mobility & Gait Start: 01/16/22 17:34 Freq: Status: Active Protocol: Document 03/13/22 10:30 DCW (Rec: 03/13/22 12:54 DCW [id number]) OP Gait Assessment Comments Gait Comments Mild antalgia, pt walking 2-3 miles daily, no assistive device PT-OP-K Range of Motion Start: 01/16/22 17:34 Freq: Status: Active Protocol: Document 03/13/22 10:30 DCW (Rec: 03/13/22 12:54 DCW [id number]) Knee Goniometric Range of Motion Knee Left Patient Position 121 Extension Active (degrees) 16 PT-OP-Q Treatments Start: 01/16/22 17:34 Freq: Status: Active Protocol: Document 03/21/22 09:45 DCW (Rec: 03/21/22 10:29 DCW [id number]) Cardio Equipment Recumbent Elliptical (Biodex) Duration (Minutes) 5 Resistance 5 Seat Position 12 Gym Equipment Shuttle Recovery Bilateral Squats Resistance 75# Reps/Time VCs to avoid hyperextension Shuttle Balance Red Details WBOS, Staggered, Lateral weight shift Therapeutic Exercises Standing Exercises Squat Standing Exercise Name eccentric chair taps Resistance no UE support Equipment Used mesh chair, perdomo foam Reps/Minutes x12 Comments vc controlled eccentric, foot position Hip abduction Standing Exercise Name Abduction Side bilateral Resistance Green TKE Standing Exercise Name TKE Side left Resistance Lv 5 Reps/Minutes x10 AROM, 5x5 SH Hamstring curls Standing Exercise Name HS curls Side left Resistance 10# Reps/Minutes [id number] Hip extension Standing Exercise Name Hip extension Side left Resistance Green Comments added to HEP PT-OP-T Assessment and Plan Start: 01/16/22 17:34 Freq: Status: Active Protocol: Document 03/21/22 09:45 DCW (Rec: 03/21/22 10:29 DCW [id number]) Physical Therapy Assessment Impairments Impairments Functional Activities, Functional Mobility,Gait,Pain, ROM,Strength,Tone Goals Two Impairment Pt unable to walk/hike is usual five miles per day 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 LTG Duration 05/13/22 - Improving, limited to 16? ext One Impairment Pt does not have an appropriate home exercise program Short Term Goal (STG) Pt to be independent and compliant with an appropriate HEP STG Duration Met Assessment Summary Assessment Pt showing good improvement overall, slowly progressing hamstring strength, most limited by continued pain secondary to right hip osteoarthritis. Physical Therapy Plan Frequency and Duration Frequency of Treatment 2x/Week Plan of Care Start Date 03/13/22 Plan of Care End Date 05/13/21 Therapeutic Interventions Therapeutic Interventions Aquatic Therapy,Gait Training, Home Exercise Program,Joint Mobilizations,Manual Therapy, Orthotic/Prosthetic Management ,Patient/Caregiver Education, Self-Care/Home Management,Soft Tissue Mobilization, Therapeutic Activities, Therapeutic Exercises Modalities Cold Pack/Ice Massage,Electric Stimulation,Hot Packs, Ultrasound Next Visit Focus/Plan Next Note Type Treatment Note Next Visit Plan consider eccentric chair taps w/ perdomo foam Slow progression of gentle hamstring strengthening
--- NOTE | 2022-03-26 12:01 | PT.OTN ---
Current Diagnoses Stiffness of left hip, not elsewhere classified (03/26/22) Stiffness of left knee, not elsewhere classified (03/26/22) Other abnormalities of gait and mobility (03/26/22) Strain of muscle, fascia and tendon of the posterior muscle group at thigh level, left thigh, initial encounter (03/26/22) Physical Therapy Treatment Note PT-OP-A Visit Information Start: 01/16/22 17:34 Freq: Status: Active Protocol: Document 03/26/22 11:15 DCW (Rec: 03/26/22 12:01 DCW [id number]) Out-Patient Physical Therapy Visit Information Visit Information Visit Type Treatment Note Visit Start Time 11:15 Visit Stop Time 12:00 Total Visit Minutes 45 Visit Number 18 Number of SPONGE BUFFER Visits 0 Evaluation Information Evaluation Date 01/16/22 PT-OP-B Current Condition Start: 01/16/22 17:34 Freq: Status: Active Protocol: Document 01/16/22 14:30 DCW (Rec: 01/16/22 17:52 DCW [id number]) Current Condition History of Current Condition Onset Date One month Current Complaints 2 weeks s/p Hamstring tear repair History of Current Condition Pt is a 66 year old male presenting two week s/p left proximal hamstring rupture repair. In the beginning of December, pt was out [facility] during vacation in [place]. Pt felt a pop in his left hamstring, and was seen in a local ED. Was diagnosed with a strain. Pt continued to have pain, was scheduled for an MRI on 12/25/21 and PT on 12/26/21. Pt arrived at his initial PT eval with his MRI results, which stated complete tear of the Hamstring tendons with 4 cm retraction of the muscle. At that time, it was decided to cancel his PT eval until he was seen by an Ortho. Pt was seen soon afterward and underwent surgical repair 01/01. Referral notes limited ROM to not extend further than 60?, and to keep knee immobilizer on at all times. Treatment Goals Patient/Caregiver Goals Return to riding his motorcycle, get back to hiking and walking 5+ miles a day, and to be able to exercise enough to get rid of his weight gain that has occurred since initial injury. PT-OP-C Subjective Start: 01/16/22 17:34 Freq: Status: Active Protocol: Document 03/26/22 11:15 DCW (Rec: 03/26/22 12:01 DCW [id number]) OP-PT Subjective Patient Comments Patient Comments Pt feeling pretty good, no complaints or concerns regarding his leg, feels it is coming along. PT-OP-E Functional Tests Start: 01/17/22 08:37 Freq: Status: Active Protocol: Document 01/16/22 14:30 DCW (Rec: 01/17/22 08:38 DCW [id number]) Functional Tests Timed Up and Go (TUG) Score 7.99 Comments Three-trial average (9.10, 7. 16, 7.71) TUG Impairment Rating 0% Impaired (Score 10) PT-OP-F Manual Assessment Start: 01/16/22 17:34 Freq: Status: Active Protocol: Document 03/13/22 10:30 DCW (Rec: 03/13/22 12:54 DCW [id number]) Manual Assessments Joint Mobility Assessment Joint Mobility Assessment Knee extension returning to WNL, still limited to 16? extension. PT-OP-G Mobility & Gait Start: 01/16/22 17:34 Freq: Status: Active Protocol: Document 03/13/22 10:30 DCW (Rec: 03/13/22 12:54 DCW [id number]) OP Gait Assessment Comments Gait Comments Mild antalgia, pt walking 2-3 miles daily, no assistive device PT-OP-K Range of Motion Start: 01/16/22 17:34 Freq: Status: Active Protocol: Document 03/13/22 10:30 DCW (Rec: 03/13/22 12:54 DCW [id number]) Knee Goniometric Range of Motion Knee Left Patient Position 121 Extension Active (degrees) 16 PT-OP-Q Treatments Start: 01/16/22 17:34 Freq: Status: Active Protocol: Document 03/26/22 11:15 DCW (Rec: 03/26/22 12:01 DCW [id number]) Cardio Equipment Elliptical Duration (Minutes) 6 Resistance 6 Gym Equipment Cable Column (Body Solid) Leg Curl Resistance 10# L, 30# R Shuttle Recovery Bilateral Squats Resistance 75# Reps/Time VCs to avoid hyperextension Shuttle Balance Red Details WBOS, NBOS, Staggered, Lateral weight shift Therapeutic Exercises Standing Exercises Squat Standing Exercise Name eccentric chair taps Resistance no UE support Equipment Used mesh chair, martini foam Reps/Minutes x12 Comments vc controlled eccentric, foot position Hip abduction Standing Exercise Name Abduction Side bilateral Resistance Green TKE Standing Exercise Name TKE Side left Resistance Lv 5 Reps/Minutes x10 AROM Hip extension Standing Exercise Name Hip extension Side left Resistance Green Comments added to HEP Neuro Re-Education Treatment Balance Activities Tandem Stance Details Tandem Stance SLS Details SLS Surface Martini foam PT-OP-T Assessment and Plan Start: 01/16/22 17:34 Freq: Status: Active Protocol: Document 03/26/22 11:15 DCW (Rec: 03/26/22 12:01 DCW [id number]) Physical Therapy Assessment Impairments Impairments Functional Activities, Functional Mobility,Gait,Pain, ROM,Strength,Tone Goals Two Impairment Pt unable to walk/hike is usual five miles per day Senior Living Goal (LTG) Pt to progress to full knee extension, following post-op protocol, in order to normalize gait pattern in order for pt to return to walking or hiking at least five miles a day, which is his preferred leisure activity. LTG Duration 05/13/22 - Improving, limited to 16? ext One Impairment Pt does not have an appropriate home exercise program Short Term Goal (STG) Pt to be independent and compliant with an appropriate HEP STG Duration Met Assessment Summary Assessment Pt has follow-up with surgeon later this week. Doing very well with recovery at this stage. Not experiencing any right hip pain today, which helped pt tolerate new exercises, mainly new focus on balance challenges. Physical Therapy Plan Frequency and Duration Frequency of Treatment 2x/Week Plan of Care Start Date 03/13/22 Plan of Care End Date 05/13/21 Therapeutic Interventions Therapeutic Interventions Aquatic Therapy,Gait Training, Home Exercise Program,Joint Mobilizations,Manual Therapy, Orthotic/Prosthetic Management ,Patient/Caregiver Education, Self-Care/Home Management,Soft Tissue Mobilization, Therapeutic Activities, Therapeutic Exercises Modalities Cold Pack/Ice Massage,Electric Stimulation,Hot Packs, Ultrasound Next Visit Focus/Plan Next Note Type Treatment Note Next Visit Plan consider eccentric chair taps w/ martini foam Slow progression of gentle hamstring strengthening
--- NOTE | 2022-04-02 09:43 | PT.OTN ---
Current Diagnoses Stiffness of left hip, not elsewhere classified (04/02/22) Stiffness of left knee, not elsewhere classified (04/02/22) Other abnormalities of gait and mobility (04/02/22) Strain of muscle, fascia and tendon of the posterior muscle group at thigh level, left thigh, initial encounter (04/02/22) Physical Therapy Treatment Note PT-OP-A Visit Information Start: 01/16/22 17:34 Freq: Status: Active Protocol: Document 04/02/22 08:56 NBM (Rec: 04/02/22 09:42 NBM [id number]) Out-Patient Physical Therapy Visit Information Visit Information Visit Type Treatment Note Visit Start Time 09:00 Visit Stop Time 09:40 Total Visit Minutes 40 Visit Number 19 Number of DISPATCHER MAINTENANCE Visits 1 Evaluation Information Evaluation Date 01/16/22 PT-OP-B Current Condition Start: 01/16/22 17:34 Freq: Status: Active Protocol: Document 01/16/22 14:30 DCW (Rec: 01/16/22 17:52 DCW [id number]) Current Condition History of Current Condition Onset Date One month Current Complaints 2 weeks s/p Hamstring tear repair History of Current Condition Pt is a 66 year old male presenting two week s/p left proximal hamstring rupture repair. In the beginning of December, pt was out [facility] during vacation in [place]. Pt felt a pop in his left hamstring, and was seen in a local ED. Was diagnosed with a strain. Pt continued to have pain, was scheduled for an MRI on 12/25/21 and PT on 12/26/21. Pt arrived at his initial PT eval with his MRI results, which stated complete tear of the Hamstring tendons with 4 cm retraction of the muscle. At that time, it was decided to cancel his PT eval until he was seen by an Ortho. Pt was seen soon afterward and underwent surgical repair 01/01. Referral notes limited ROM to not extend further than 60?, and to keep knee immobilizer on at all times. Treatment Goals Patient/Caregiver Goals Return to riding his motorcycle, get back to hiking and walking 5+ miles a day, and to be able to exercise enough to get rid of his weight gain that has occurred since initial injury. PT-OP-C Subjective Start: 01/16/22 17:34 Freq: Status: Active Protocol: Document 04/02/22 08:56 NBM (Rec: 04/02/22 09:42 NBM [id number]) OP-PT Subjective Patient Comments Patient Comments Pt states surgeon is happy with the hamstring repair and advised him his waterskiing days are over. He asked about his hip and she suggested replacement in 2-3 years. Pt bought ankle weights for home. He is walking easily 18 - 18. 5 min miles. PT-OP-E Functional Tests Start: 01/17/22 08:37 Freq: Status: Active Protocol: Document 01/16/22 14:30 DCW (Rec: 01/17/22 08:38 DCW [id number]) Functional Tests Timed Up and Go (TUG) Score 7.99 Comments Three-trial average (9.10, 7. 16, 7.71) TUG Impairment Rating 0% Impaired (Score 10) PT-OP-F Manual Assessment Start: 01/16/22 17:34 Freq: Status: Active Protocol: Document 03/13/22 10:30 DCW (Rec: 03/13/22 12:54 DCW [id number]) Manual Assessments Joint Mobility Assessment Joint Mobility Assessment Knee extension returning to WNL, still limited to 16? extension. PT-OP-G Mobility & Gait Start: 01/16/22 17:34 Freq: Status: Active Protocol: Document 03/13/22 10:30 DCW (Rec: 03/13/22 12:54 DCW [id number]) OP Gait Assessment Comments Gait Comments Mild antalgia, pt walking 2-3 miles daily, no assistive device PT-OP-K Range of Motion Start: 01/16/22 17:34 Freq: Status: Active Protocol: Document 03/13/22 10:30 DCW (Rec: 03/13/22 12:54 DCW [id number]) Knee Goniometric Range of Motion Knee Left Patient Position 121 Extension Active (degrees) 16 PT-OP-Q Treatments Start: 01/16/22 17:34 Freq: Status: Active Protocol: Document 04/02/22 08:56 NBM (Rec: 04/02/22 09:42 NBM [id number]) Cardio Equipment Elliptical Duration (Minutes) 6 Resistance 7 Gym Equipment Cable Column (Body Solid) Leg Curl Resistance 10# L, 30# R Shuttle Recovery Bilateral Squats Resistance 75# Reps/Time VCs to avoid hyperextension Therapeutic Exercises Standing Exercises Squat Standing Exercise Name eccentric chair taps Resistance no UE support Equipment Used mesh chair, perdomo foam Reps/Minutes x12 Comments vc controlled eccentric, foot position Hip abduction Standing Exercise Name Abduction Side bilateral Resistance Green TKE Standing Exercise Name TKE Side left Resistance Lv 5 Reps/Minutes x5 AROM, 5x5SH Hip extension Standing Exercise Name Hip extension Side left Resistance Green Comments vc for hip ER end-range Neuro Re-Education Treatment Balance Activities Tandem Stance Details Tandem Stance Reps/Duration trials, 30s+ ea SLS Reps/Duration L 12s, R 23s PT-OP-T Assessment and Plan Start: 01/16/22 17:34 Freq: Status: Active Protocol: Document 04/02/22 08:56 [facility] (Rec: 04/02/22 09:42 [facility] [id number]) Physical Therapy Assessment Goals Two Impairment Pt unable to walk/hike is usual five miles per day Analytics Developer Goal (LTG) Pt to progress to full knee extension, following post-op protocol, in order to normalize gait pattern in order for pt to return to walking or hiking at least five miles a day, which is his preferred leisure activity. LTG Duration 05/13/22 - Improving, limited to 16? ext One Impairment Pt does not have an appropriate home exercise program Short Term Goal (STG) Pt to be independent and compliant with an appropriate HEP STG Duration Met Assessment Summary Assessment Pt demonstrates improving LE strength and balance. Pt is able to maintain tandem stance 30+ sec bilaterally and SL stance L 12s and R 23s. Pt continues to be challenged with eccentric chair taps but can perform two without perdomo cushion and could not perform any without perdomo cushion previously. Pt requires cues for excessive hip rotation with lower extremity exercises but shows improving self- awareness, and will benefit from continued skilled therapeutic intervention. Physical Therapy Plan Frequency and Duration Frequency of Treatment 2x/Week Plan of Care Start Date 03/13/22 Plan of Care End Date 05/13/21 Therapeutic Interventions Therapeutic Interventions Aquatic Therapy,Gait Training, Home Exercise Program,Joint Mobilizations,Manual Therapy, Orthotic/Prosthetic Management ,Patient/Caregiver Education, Self-Care/Home Management,Soft Tissue Mobilization, Therapeutic Activities, Therapeutic Exercises Modalities Cold Pack/Ice Massage,Electric Stimulation,Hot Packs, Ultrasound Next Visit Focus/Plan Next Note Type Treatment Note Next Visit Plan Slow progression of gentle hamstring strengthening
--- NOTE | 2022-04-05 12:02 | PT.OTN ---
Current Diagnoses Stiffness of left hip, not elsewhere classified (04/05/22) Stiffness of left knee, not elsewhere classified (04/05/22) Other abnormalities of gait and mobility (04/05/22) Strain of muscle, fascia and tendon of the posterior muscle group at thigh level, left thigh, initial encounter (04/05/22) Physical Therapy Treatment Note PT-OP-A Visit Information Start: 01/16/22 17:34 Freq: Status: Active Protocol: Document 04/05/22 11:15 DCW (Rec: 04/05/22 12:01 DCW [id number]) Out-Patient Physical Therapy Visit Information Visit Information Visit Type Treatment Note Visit Start Time 11:15 Visit Stop Time 12:00 Total Visit Minutes 45 Visit Number 20 Number of AESTHETICS INSTRUCTOR Visits 0 Evaluation Information Evaluation Date 01/16/22 PT-OP-B Current Condition Start: 01/16/22 17:34 Freq: Status: Active Protocol: Document 01/16/22 14:30 DCW (Rec: 01/16/22 17:52 DCW [id number]) Current Condition History of Current Condition Onset Date One month Current Complaints 2 weeks s/p Hamstring tear repair History of Current Condition Pt is a 66 year old male presenting two week s/p left proximal hamstring rupture repair. In the beginning of December, pt was out [facility] during vacation in [place]. Pt felt a pop in his left hamstring, and was seen in a local ED. Was diagnosed with a strain. Pt continued to have pain, was scheduled for an MRI on 12/25/21 and PT on 12/26/21. Pt arrived at his initial PT eval with his MRI results, which stated complete tear of the Hamstring tendons with 4 cm retraction of the muscle. At that time, it was decided to cancel his PT eval until he was seen by an Ortho. Pt was seen soon afterward and underwent surgical repair 01/01. Referral notes limited ROM to not extend further than 60?, and to keep knee immobilizer on at all times. Treatment Goals Patient/Caregiver Goals Return to riding his motorcycle, get back to hiking and walking 5+ miles a day, and to be able to exercise enough to get rid of his weight gain that has occurred since initial injury. PT-OP-C Subjective Start: 01/16/22 17:34 Freq: Status: Active Protocol: Document 04/05/22 11:15 DCW (Rec: 04/05/22 12:01 DCW [id number]) OP-PT Subjective Patient Comments Patient Comments The scar's still numb, the foot's still numb, but that's probably just going to be the way it is. PT-OP-E Functional Tests Start: 01/17/22 08:37 Freq: Status: Active Protocol: Document 01/16/22 14:30 DCW (Rec: 01/17/22 08:38 DCW [id number]) Functional Tests Timed Up and Go (TUG) Score 7.99 Comments Three-trial average (9.10, 7. 16, 7.71) TUG Impairment Rating 0% Impaired (Score 10) PT-OP-F Manual Assessment Start: 01/16/22 17:34 Freq: Status: Active Protocol: Document 03/13/22 10:30 DCW (Rec: 03/13/22 12:54 DCW [id number]) Manual Assessments Joint Mobility Assessment Joint Mobility Assessment Knee extension returning to WNL, still limited to 16? extension. PT-OP-G Mobility & Gait Start: 01/16/22 17:34 Freq: Status: Active Protocol: Document 03/13/22 10:30 DCW (Rec: 03/13/22 12:54 DCW [id number]) OP Gait Assessment Comments Gait Comments Mild antalgia, pt walking 2-3 miles daily, no assistive device PT-OP-K Range of Motion Start: 01/16/22 17:34 Freq: Status: Active Protocol: Document 03/13/22 10:30 DCW (Rec: 03/13/22 12:54 DCW [id number]) Knee Goniometric Range of Motion Knee Left Patient Position 121 Extension Active (degrees) 16 PT-OP-Q Treatments Start: 01/16/22 17:34 Freq: Status: Active Protocol: Document 04/05/22 11:15 DCW (Rec: 04/05/22 12:01 DCW [id number]) Cardio Equipment Elliptical Duration (Minutes) 6 Resistance 7 Gym Equipment Cable Column (Body Solid) Leg Curl Resistance 10# L, 30# R Shuttle Recovery Unilateral Squats Resistance 50# Bilateral Squats Resistance 87# Shuttle Balance Red Details WBOS, NBOS, Staggered, Lateral weight shift Therapeutic Exercises Standing Exercises Hip abduction Standing Exercise Name Abduction Side bilateral Resistance Blue TKE Standing Exercise Name TKE Side left Resistance Lv 5 Reps/Minutes x5 AROM, 5x5SH Hip extension Standing Exercise Name Hip extension Side left Resistance Blue Comments vc for hip ER end-range PT-OP-T Assessment and Plan Start: 01/16/22 17:34 Freq: Status: Active Protocol: Document 04/05/22 11:15 DCW (Rec: 04/05/22 12:01 DCW [id number]) Physical Therapy Assessment Impairments Impairments Functional Activities, Functional Mobility,Gait,Pain, ROM,Strength,Tone Goals Two Impairment Pt unable to walk/hike is usual five miles per day Soft Iron Inspector Goal (LTG) Pt to progress to full knee extension, following post-op protocol, in order to normalize gait pattern in order for pt to return to walking or hiking at least five miles a day, which is his preferred leisure activity. LTG Duration 05/13/22 - Improving, limited to 16? ext One Impairment Pt does not have an appropriate home exercise program Short Term Goal (STG) Pt to be independent and compliant with an appropriate HEP STG Duration Met Assessment Summary Assessment Pt feeling good regarding overall progress. Ambulating feels more natural to him, notes he walks without noticing his leg ~50% of the time. Continues to progress strength and balance. Physical Therapy Plan Frequency and Duration Frequency of Treatment 2x/Week Plan of Care Start Date 03/13/22 Plan of Care End Date 05/13/21 Therapeutic Interventions Therapeutic Interventions Aquatic Therapy,Gait Training, Home Exercise Program,Joint Mobilizations,Manual Therapy, Orthotic/Prosthetic Management ,Patient/Caregiver Education, Self-Care/Home Management,Soft Tissue Mobilization, Therapeutic Activities, Therapeutic Exercises Modalities Cold Pack/Ice Massage,Electric Stimulation,Hot Packs, Ultrasound Next Visit Focus/Plan Next Note Type Treatment Note Next Visit Plan Slow progression of gentle hamstring strengthening
--- NOTE | 2022-04-09 10:08 | PT.OTN ---
Current Diagnoses Stiffness of left hip, not elsewhere classified (04/09/22) Stiffness of left knee, not elsewhere classified (04/09/22) Other abnormalities of gait and mobility (04/09/22) Strain of muscle, fascia and tendon of the posterior muscle group at thigh level, left thigh, initial encounter (04/09/22) Physical Therapy Treatment Note PT-OP-A Visit Information Start: 01/16/22 17:34 Freq: Status: Active Protocol: Document 04/09/22 09:05 NBM (Rec: 04/09/22 10:05 NBM [id number]) Out-Patient Physical Therapy Visit Information Visit Information Visit Type Treatment Note Visit Start Time 09:00 Visit Stop Time 09:50 Total Visit Minutes 50 Visit Number 21 Number of PIPE ORGAN TUNER AND REPAIRER Visits 1 Evaluation Information Evaluation Date 01/16/22 PT-OP-B Current Condition Start: 01/16/22 17:34 Freq: Status: Active Protocol: Document 01/16/22 14:30 DCW (Rec: 01/16/22 17:52 DCW [id number]) Current Condition History of Current Condition Onset Date One month Current Complaints 2 weeks s/p Hamstring tear repair History of Current Condition Pt is a 66 year old male presenting two week s/p left proximal hamstring rupture repair. In the beginning of December, pt was out [facility] during vacation in [place]. Pt felt a pop in his left hamstring, and was seen in a local ED. Was diagnosed with a strain. Pt continued to have pain, was scheduled for an MRI on 12/25/21 and PT on 12/26/21. Pt arrived at his initial PT eval with his MRI results, which stated complete tear of the Hamstring tendons with 4 cm retraction of the muscle. At that time, it was decided to cancel his PT eval until he was seen by an Ortho. Pt was seen soon afterward and underwent surgical repair 01/01. Referral notes limited ROM to not extend further than 60?, and to keep knee immobilizer on at all times. Treatment Goals Patient/Caregiver Goals Return to riding his motorcycle, get back to hiking and walking 5+ miles a day, and to be able to exercise enough to get rid of his weight gain that has occurred since initial injury. PT-OP-C Subjective Start: 01/16/22 17:34 Freq: Status: Active Protocol: Document 04/09/22 09:05 NBM (Rec: 04/09/22 10:05 NBM [id number]) OP-PT Subjective Patient Comments Patient Comments Pt states he felt good and fatigued after last visit and sore the next day. He tries to walk at least 5 days a week but walked two last week due to holiday preparations. He notices he walks differently when he stretches first. PT-OP-E Functional Tests Start: 01/17/22 08:37 Freq: Status: Active Protocol: Document 01/16/22 14:30 DCW (Rec: 01/17/22 08:38 DCW [id number]) Functional Tests Timed Up and Go (TUG) Score 7.99 Comments Three-trial average (9.10, 7. 16, 7.71) TUG Impairment Rating 0% Impaired (Score 10) PT-OP-F Manual Assessment Start: 01/16/22 17:34 Freq: Status: Active Protocol: Document 03/13/22 10:30 DCW (Rec: 03/13/22 12:54 DCW [id number]) Manual Assessments Joint Mobility Assessment Joint Mobility Assessment Knee extension returning to WNL, still limited to 16? extension. PT-OP-G Mobility & Gait Start: 01/16/22 17:34 Freq: Status: Active Protocol: Document 03/13/22 10:30 DCW (Rec: 03/13/22 12:54 DCW [id number]) OP Gait Assessment Comments Gait Comments Mild antalgia, pt walking 2-3 miles daily, no assistive device PT-OP-K Range of Motion Start: 01/16/22 17:34 Freq: Status: Active Protocol: Document 03/13/22 10:30 DCW (Rec: 03/13/22 12:54 DCW [id number]) Knee Goniometric Range of Motion Knee Left Patient Position 121 Extension Active (degrees) 16 PT-OP-Q Treatments Start: 01/16/22 17:34 Freq: Status: Active Protocol: Document 04/09/22 09:05 NBM (Rec: 04/09/22 10:05 NBM [id number]) Cardio Equipment Elliptical Duration (Minutes) 6 Resistance 7 Gym Equipment Cable Column (Body Solid) Leg Curl Resistance 10# L, 40>30# R Reps/Time pt needs vc for toes fwd with fatigue Shuttle Recovery Heel raises Resistance 50>67# Reps/Time 50#x5, 67#x10 Unilateral Squats Resistance 50# Reps/Time 2x10 Bilateral Squats Resistance 87# Reps/Time 2x10 Shuttle Balance Red Details WBOS, NBOS, weightshifting a/p and m/l Comments posterior weightshifting more challenging than anterior - pt unable to maintain fully upright position w/ posterior weightshifting due to posterior chain tightness. Therapeutic Exercises Standing Exercises Hip abduction Standing Exercise Name Abduction Side bilateral Resistance Blue TKE Standing Exercise Name TKE Side left Resistance Lv 5 Reps/Minutes x10 AROM, 5x5SH Hip extension Standing Exercise Name Hip extension Side left Resistance Blue Comments vc for toes forward Self-Care/Home Management Treatment Education Patient Education Home Exercise Program Other Education Discussed stretching hip flexors (Manjinder), hamstrings ( seated or standing w hip hinge ) and calves (lunge stretch at wall) regularly as part of HEP - pt states he notices a difference with walking when he stretches first. PT-OP-T Assessment and Plan Start: 01/16/22 17:34 Freq: Status: Active Protocol: Document 04/09/22 09:05 [facility] (Rec: 04/09/22 10:05 [facility] [id number]) Physical Therapy Assessment Impairments Impairments Functional Activities, Functional Mobility,Gait,Pain, ROM,Strength,Tone Goals Two Impairment Pt unable to walk/hike is usual five miles per day Director Of Architecture Goal (LTG) Pt to progress to full knee extension, following post-op protocol, in order to normalize gait pattern in order for pt to return to walking or hiking at least five miles a day, which is his preferred leisure activity. LTG Duration 05/13/22 - Improving, limited to 16? ext One Impairment Pt does not have an appropriate home exercise program Short Term Goal (STG) Pt to be independent and compliant with an appropriate HEP STG Duration Met Assessment Summary Assessment Pt is unable to maintain fully upright position w/ posterior weightshifting due to lower extremity posterior chain tightness on shuttle balance. Discussion reviewing stretching HEP of hip flexors (Manjinder), hamstrings (seated or standing w hip hinge) and calves (lunge stretch at wall) regularly as part of HEP - pt states he does notice a difference with walking when he stretches first. Physical Therapy Plan Frequency and Duration Frequency of Treatment 2x/Week Plan of Care Start Date 03/13/22 Plan of Care End Date 05/13/21 Therapeutic Interventions Therapeutic Interventions Aquatic Therapy,Gait Training, Home Exercise Program,Joint Mobilizations,Manual Therapy, Orthotic/Prosthetic Management ,Patient/Caregiver Education, Self-Care/Home Management,Soft Tissue Mobilization, Therapeutic Activities, Therapeutic Exercises Modalities Cold Pack/Ice Massage,Electric Stimulation,Hot Packs, Ultrasound Next Visit Focus/Plan Next Note Type Treatment Note Next Visit Plan Slow progression of gentle hamstring strengthening
--- NOTE | 2022-04-12 11:16 | PT.OTN ---
Current Diagnoses Stiffness of left hip, not elsewhere classified (04/12/22) Stiffness of left knee, not elsewhere classified (04/12/22) Other abnormalities of gait and mobility (04/12/22) Strain of muscle, fascia and tendon of the posterior muscle group at thigh level, left thigh, initial encounter (04/12/22) Physical Therapy Treatment Note PT-OP-A Visit Information Start: 01/16/22 17:34 Freq: Status: Active Protocol: Document 04/12/22 10:31 DCW (Rec: 04/12/22 11:16 DCW [id number]) Out-Patient Physical Therapy Visit Information Visit Information Visit Type Treatment Note Visit Start Time 10:31 Visit Stop Time 11:15 Total Visit Minutes 44 Visit Number 22 Number of PRODUCT SAFETY COORDINATOR Visits 0 Evaluation Information Evaluation Date 01/16/22 PT-OP-B Current Condition Start: 01/16/22 17:34 Freq: Status: Active Protocol: Document 01/16/22 14:30 DCW (Rec: 01/16/22 17:52 DCW [id number]) Current Condition History of Current Condition Onset Date One month Current Complaints 2 weeks s/p Hamstring tear repair History of Current Condition Pt is a 66 year old male presenting two week s/p left proximal hamstring rupture repair. In the beginning of December, pt was out [facility] during vacation in [place]. Pt felt a pop in his left hamstring, and was seen in a local ED. Was diagnosed with a strain. Pt continued to have pain, was scheduled for an MRI on 12/25/21 and PT on 12/26/21. Pt arrived at his initial PT eval with his MRI results, which stated complete tear of the Hamstring tendons with 4 cm retraction of the muscle. At that time, it was decided to cancel his PT eval until he was seen by an Ortho. Pt was seen soon afterward and underwent surgical repair 01/01. Referral notes limited ROM to not extend further than 60?, and to keep knee immobilizer on at all times. Treatment Goals Patient/Caregiver Goals Return to riding his motorcycle, get back to hiking and walking 5+ miles a day, and to be able to exercise enough to get rid of his weight gain that has occurred since initial injury. PT-OP-C Subjective Start: 01/16/22 17:34 Freq: Status: Active Protocol: Document 04/12/22 10:31 DCW (Rec: 04/12/22 11:16 DCW [id number]) OP-PT Subjective Patient Comments Patient Comments Pt reports that nothing is bothering his leg day-to-day, still feels slight weakness when trying to flex knee, but no pain. PT-OP-E Functional Tests Start: 01/17/22 08:37 Freq: Status: Active Protocol: Document 01/16/22 14:30 DCW (Rec: 01/17/22 08:38 DCW [id number]) Functional Tests Timed Up and Go (TUG) Score 7.99 Comments Three-trial average (9.10, 7. 16, 7.71) TUG Impairment Rating 0% Impaired (Score 10) PT-OP-F Manual Assessment Start: 01/16/22 17:34 Freq: Status: Active Protocol: Document 03/13/22 10:30 DCW (Rec: 03/13/22 12:54 DCW [id number]) Manual Assessments Joint Mobility Assessment Joint Mobility Assessment Knee extension returning to WNL, still limited to 16? extension. PT-OP-G Mobility & Gait Start: 01/16/22 17:34 Freq: Status: Active Protocol: Document 03/13/22 10:30 DCW (Rec: 03/13/22 12:54 DCW [id number]) OP Gait Assessment Comments Gait Comments Mild antalgia, pt walking 2-3 miles daily, no assistive device PT-OP-K Range of Motion Start: 01/16/22 17:34 Freq: Status: Active Protocol: Document 03/13/22 10:30 DCW (Rec: 03/13/22 12:54 DCW [id number]) Knee Goniometric Range of Motion Knee Left Patient Position 121 Extension Active (degrees) 16 PT-OP-Q Treatments Start: 01/16/22 17:34 Freq: Status: Active Protocol: Document 04/12/22 10:31 DCW (Rec: 04/12/22 11:16 DCW [id number]) Cardio Equipment Elliptical Duration (Minutes) 6 Resistance 7 Gym Equipment Cable Column (Body Solid) Leg Curl Resistance 12.5# L, 30# R Shuttle Recovery Heel raises Details Single leg Resistance 62# Reps/Time x15 Unilateral Squats Resistance 50# Reps/Time x20 Bilateral Squats Resistance 87# Reps/Time x20 Shuttle Balance Red Details WBOS, NBOS, weightshifting a/p and m/l Therapeutic Exercises Standing Exercises Hip abduction Standing Exercise Name Abduction Side bilateral Resistance Blue Hip extension Standing Exercise Name Hip extension Side left Resistance Blue Comments vc for toes forward PT-OP-T Assessment and Plan Start: 01/16/22 17:34 Freq: Status: Active Protocol: Document 04/12/22 10:31 DCW (Rec: 04/12/22 11:16 DCW [id number]) Physical Therapy Assessment Impairments Impairments Functional Activities, Functional Mobility,Gait,Pain, ROM,Strength,Tone Goals Two Impairment Pt unable to walk/hike is usual five miles per day Prison Goal (LTG) Pt to progress to full knee extension, following post-op protocol, in order to normalize gait pattern in order for pt to return to walking or hiking at least five miles a day, which is his preferred leisure activity. LTG Duration 05/13/22 - Improving, limited to 16? ext One Impairment Pt does not have an appropriate home exercise program Short Term Goal (STG) Pt to be independent and compliant with an appropriate HEP STG Duration Met Assessment Summary Assessment Pt not having any pain or difficulty with his daily activities. Overall doing better in all areas, may be approacing discharge to independent HEP. Physical Therapy Plan Frequency and Duration Frequency of Treatment 2x/Week Plan of Care Start Date 03/13/22 Plan of Care End Date 05/13/21 Therapeutic Interventions Therapeutic Interventions Aquatic Therapy,Gait Training, Home Exercise Program,Joint Mobilizations,Manual Therapy, Orthotic/Prosthetic Management ,Patient/Caregiver Education, Self-Care/Home Management,Soft Tissue Mobilization, Therapeutic Activities, Therapeutic Exercises Modalities Cold Pack/Ice Massage,Electric Stimulation,Hot Packs, Ultrasound Next Visit Focus/Plan Next Note Type Treatment Note Next Visit Plan Slow progression of gentle hamstring strengthening
--- NOTE | 2022-04-16 10:31 | PT.OTN ---
Current Diagnoses Stiffness of left hip, not elsewhere classified (04/16/22) Stiffness of left knee, not elsewhere classified (04/16/22) Other abnormalities of gait and mobility (04/16/22) Strain of muscle, fascia and tendon of the posterior muscle group at thigh level, left thigh, initial encounter (04/16/22) Physical Therapy Treatment Note PT-OP-A Visit Information Start: 01/16/22 17:34 Freq: Status: Active Protocol: Document 04/16/22 09:58 NBM (Rec: 04/16/22 10:31 NBM [id number]) Out-Patient Physical Therapy Visit Information Visit Information Visit Type Treatment Note Visit Note Pt was present but not attended dut to front desk host error. Visit Start Time 09:55 Visit Stop Time 10:30 Total Visit Minutes 35 Visit Number 23 Number of SHIP'S CAPTAIN Visits 1 Evaluation Information Evaluation Date 01/16/22 PT-OP-B Current Condition Start: 01/16/22 17:34 Freq: Status: Active Protocol: Document 01/16/22 14:30 DCW (Rec: 01/16/22 17:52 DCW [id number]) Current Condition History of Current Condition Onset Date One month Current Complaints 2 weeks s/p Hamstring tear repair History of Current Condition Pt is a 66 year old male presenting two week s/p left proximal hamstring rupture repair. In the beginning of December, pt was out [facility] during vacation in [place]. Pt felt a pop in his left hamstring, and was seen in a local ED. Was diagnosed with a strain. Pt continued to have pain, was scheduled for an MRI on 12/25/21 and PT on 12/26/21. Pt arrived at his initial PT eval with his MRI results, which stated complete tear of the Hamstring tendons with 4 cm retraction of the muscle. At that time, it was decided to cancel his PT eval until he was seen by an Ortho. Pt was seen soon afterward and underwent surgical repair 01/01. Referral notes limited ROM to not extend further than 60?, and to keep knee immobilizer on at all times. Treatment Goals Patient/Caregiver Goals Return to riding his motorcycle, get back to hiking and walking 5+ miles a day, and to be able to exercise enough to get rid of his weight gain that has occurred since initial injury. PT-OP-C Subjective Start: 01/16/22 17:34 Freq: Status: Active Protocol: Document 04/16/22 09:58 NBM (Rec: 04/16/22 10:31 NBM [id number]) OP-PT Subjective Patient Comments Patient Comments Pt plans to walk this afternoon. He is feeling well day to day. I'm fine besides being old and fat and the arthritis. Pt bought 10# ankle weights but has not used them yet. PT-OP-E Functional Tests Start: 01/17/22 08:37 Freq: Status: Active Protocol: Document 01/16/22 14:30 DCW (Rec: 01/17/22 08:38 DCW [id number]) Functional Tests Timed Up and Go (TUG) Score 7.99 Comments Three-trial average (9.10, 7. 16, 7.71) TUG Impairment Rating 0% Impaired (Score 10) PT-OP-F Manual Assessment Start: 01/16/22 17:34 Freq: Status: Active Protocol: Document 03/13/22 10:30 DCW (Rec: 03/13/22 12:54 DCW [id number]) Manual Assessments Joint Mobility Assessment Joint Mobility Assessment Knee extension returning to WNL, still limited to 16? extension. PT-OP-G Mobility & Gait Start: 01/16/22 17:34 Freq: Status: Active Protocol: Document 03/13/22 10:30 DCW (Rec: 03/13/22 12:54 DCW [id number]) OP Gait Assessment Comments Gait Comments Mild antalgia, pt walking 2-3 miles daily, no assistive device PT-OP-K Range of Motion Start: 01/16/22 17:34 Freq: Status: Active Protocol: Document 03/13/22 10:30 DCW (Rec: 03/13/22 12:54 DCW [id number]) Knee Goniometric Range of Motion Knee Left Patient Position 121 Extension Active (degrees) 16 PT-OP-Q Treatments Start: 01/16/22 17:34 Freq: Status: Active Protocol: Document 04/16/22 09:58 NBM (Rec: 04/16/22 10:31 NBM [id number]) Cardio Equipment Elliptical Duration (Minutes) 6 Resistance 7 Gym Equipment Cable Column (Body Solid) Leg Curl Resistance 12.5# L, 30# R Shuttle Recovery Heel raises Details Single leg Resistance 62# Reps/Time x15 Unilateral Squats Resistance 62# Reps/Time 2X10 Bilateral Squats Resistance 100# Reps/Time 2X10 Therapeutic Exercises Standing Exercises Stretch Standing Exercise Name Calf stretch Side bilateral Equipment Used PIA, handrail Reps/Minutes x60 Hip abduction Standing Exercise Name Abduction Side bilateral Resistance Blue Equipment Used handrail Hip extension Standing Exercise Name Hip extension Side left Resistance Blue Equipment Used handrail Comments vc for toes forward PT-OP-T Assessment and Plan Start: 01/16/22 17:34 Freq: Status: Active Protocol: Document 04/16/22 09:58 NBM (Rec: 04/16/22 10:31 NB [id number]) Physical Therapy Assessment Goals Two Impairment Pt unable to walk/hike is usual five miles per day Remnant Sorter Goal (LTG) Pt to progress to full knee extension, following post-op protocol, in order to normalize gait pattern in order for pt to return to walking or hiking at least five miles a day, which is his preferred leisure activity. LTG Duration 05/13/22 - Improving, limited to 16? ext One Impairment Pt does not have an appropriate home exercise program Short Term Goal (STG) Pt to be independent and compliant with an appropriate HEP STG Duration Met Assessment Summary Assessment Pt tolerates treatment session well including increased resistance on shuttle recovery with double leg and single leg press. Pt demonstrates improved self-awareness Physical Therapy Plan Frequency and Duration Frequency of Treatment 2x/Week Plan of Care Start Date 03/13/22 Plan of Care End Date 05/13/21 Therapeutic Interventions Therapeutic Interventions Aquatic Therapy,Gait Training, Home Exercise Program,Joint Mobilizations,Manual Therapy, Orthotic/Prosthetic Management ,Patient/Caregiver Education, Self-Care/Home Management,Soft Tissue Mobilization, Therapeutic Activities, Therapeutic Exercises Modalities Cold Pack/Ice Massage,Electric Stimulation,Hot Packs, Ultrasound Next Visit Focus/Plan Next Note Type Treatment Note Next Visit Plan Slow progression of gentle hamstring strengthening
--- NOTE | 2022-04-23 10:35 | PT.OTN ---
Current Diagnoses Stiffness of left hip, not elsewhere classified (04/23/22) Stiffness of left knee, not elsewhere classified (04/23/22) Other abnormalities of gait and mobility (04/23/22) Strain of muscle, fascia and tendon of the posterior muscle group at thigh level, left thigh, initial encounter (04/23/22) Physical Therapy Treatment Note PT-OP-A Visit Information Start: 01/16/22 17:34 Freq: Status: Active Protocol: Document 04/23/22 09:55 NBM (Rec: 04/23/22 10:34 NBM [id number]) Out-Patient Physical Therapy Visit Information Visit Information Visit Type Treatment Note Visit Start Time 09:50 Visit Stop Time 10:30 Total Visit Minutes 40 Visit Number 24 Number of LABEL FOLDER Visits 2 PT-OP-B Current Condition Start: 01/16/22 17:34 Freq: Status: Active Protocol: Document 01/16/22 14:30 DCW (Rec: 01/16/22 17:52 DCW [id number]) Current Condition History of Current Condition Onset Date One month Current Complaints 2 weeks s/p Hamstring tear repair History of Current Condition Pt is a 66 year old male presenting two week s/p left proximal hamstring rupture repair. In the beginning of December, pt [facility] during vacation in [place]. Pt felt a pop in his left hamstring, and was seen in a local ED. Was diagnosed with a strain. Pt continued to have pain, was scheduled for an MRI on 12/25/21 and PT on 12/26/21. Pt arrived at his initial PT eval with his MRI results, which stated complete tear of the Hamstring tendons with 4 cm retraction of the muscle. At that time, it was decided to cancel his PT eval until he was seen by an Ortho. Pt was seen soon afterward and underwent surgical repair 01/01. Referral notes limited ROM to not extend further than 60?, and to keep knee immobilizer on at all times. Treatment Goals Patient/Caregiver Goals Return to riding his motorcycle, get back to hiking and walking 5+ miles a day, and to be able to exercise enough to get rid of his weight gain that has occurred since initial injury. PT-OP-C Subjective Start: 01/16/22 17:34 Freq: Status: Active Protocol: Document 04/23/22 09:55 NBM (Rec: 04/23/22 10:34 NBM [id number]) OP-PT Subjective Patient Comments Patient Comments Pt states he has not been walking or exercises lately. He had a cold last week, his retired and they are busy with holidays. His notices he walks with a limp now. Pt started using his 10# weights at home for hamstring curl. PT-OP-E Functional Tests Start: 01/17/22 08:37 Freq: Status: Active Protocol: Document 01/16/22 14:30 DCW (Rec: 01/17/22 08:38 DCW [id number]) Functional Tests Timed Up and Go (TUG) Score 7.99 Comments Three-trial average (9.10, 7. 16, 7.71) TUG Impairment Rating 0% Impaired (Score 10) PT-OP-F Manual Assessment Start: 01/16/22 17:34 Freq: Status: Active Protocol: Document 03/13/22 10:30 DCW (Rec: 03/13/22 12:54 DCW [id number]) Manual Assessments Joint Mobility Assessment Joint Mobility Assessment Knee extension returning to WNL, still limited to 16? extension. PT-OP-G Mobility & Gait Start: 01/16/22 17:34 Freq: Status: Active Protocol: Document 03/13/22 10:30 DCW (Rec: 03/13/22 12:54 DCW [id number]) OP Gait Assessment Comments Gait Comments Mild antalgia, pt walking 2-3 miles daily, no assistive device PT-OP-K Range of Motion Start: 01/16/22 17:34 Freq: Status: Active Protocol: Document 03/13/22 10:30 DCW (Rec: 03/13/22 12:54 DCW [id number]) Knee Goniometric Range of Motion Knee Left Patient Position 121 Extension Active (degrees) 16 PT-OP-Q Treatments Start: 01/16/22 17:34 Freq: Status: Active Protocol: Document 04/23/22 09:55 NBM (Rec: 04/23/22 10:34 NBM [id number]) Cardio Equipment Elliptical Duration (Minutes) 6 Resistance 7 Therapeutic Exercises Standing Exercises Squat Standing Exercise Name eccentric chair taps Resistance no UE support Equipment Used mesh chair, added perdomo cushion Reps/Minutes x12 Comments vc for hip hinge, knees behind toes Stretch Standing Exercise Name Calf stretch Side bilateral Equipment Used PIA, handrail Reps/Minutes x60 TKE Standing Exercise Name TKE Side left Resistance Lv 5 Reps/Minutes x10 AROM, 5x5SH step ups Standing Exercise Name Up/Down Equipment Used 6 step Comments cues for max height, upright posture Other Exercises Resisted ambulation Other Exercise Name Resisted side-stepping Side bilateral Resistance Blue Reps/Minutes 2 x 12 ft ea Comments vc for toes fwd, heels apart, upright posture PT-OP-T Assessment and Plan Start: 01/16/22 17:34 Freq: Status: Active Protocol: Document 04/23/22 09:55 [facility] (Rec: 04/23/22 10:34 [facility] [id number]) Physical Therapy Assessment Impairments Impairments Functional Activities, Functional Mobility,Gait,Pain, ROM,Strength,Tone Goals Two Impairment Pt unable to walk/hike is usual five miles per day Booster Pump Oiler Goal (LTG) Pt to progress to full knee extension, following post-op protocol, in order to normalize gait pattern in order for pt to return to walking or hiking at least five miles a day, which is his preferred leisure activity. LTG Duration 05/13/22 - Improving, limited to 16? ext One Impairment Pt does not have an appropriate home exercise program Short Term Goal (STG) Pt to be independent and compliant with an appropriate HEP STG Duration Met Assessment Summary Assessment Pt demonstrates increased approach to fatigue on LLE to RLE today, with recent cold and inactivity likely contribution. Pt has good feedback response to stretching and improved self- correction with upright posture. Physical Therapy Plan Frequency and Duration Frequency of Treatment 2x/Week Plan of Care Start Date 03/13/22 Plan of Care End Date 05/13/22 Therapeutic Interventions Therapeutic Interventions Aquatic Therapy,Gait Training, Home Exercise Program,Joint Mobilizations,Manual Therapy, Orthotic/Prosthetic Management ,Patient/Caregiver Education, Self-Care/Home Management,Soft Tissue Mobilization, Therapeutic Activities, Therapeutic Exercises Modalities Cold Pack/Ice Massage,Electric Stimulation,Hot Packs, Ultrasound Next Visit Focus/Plan Next Note Type Treatment Note Next Visit Plan Slow progression of gentle hamstring strengthening
--- NOTE | 2022-04-26 10:37 | PT.OTN ---
Current Diagnoses Stiffness of left hip, not elsewhere classified (04/26/22) Stiffness of left knee, not elsewhere classified (04/26/22) Other abnormalities of gait and mobility (04/26/22) Strain of muscle, fascia and tendon of the posterior muscle group at thigh level, left thigh, initial encounter (04/26/22) Physical Therapy Treatment Note PT-OP-A Visit Information Start: 01/16/22 17:34 Freq: Status: Active Protocol: Document 04/26/22 09:45 DCW (Rec: 04/26/22 10:37 DCW [id number]) Out-Patient Physical Therapy Visit Information Visit Information Visit Type Discharge Summary Visit Start Time 09:45 Visit Stop Time 10:30 Total Visit Minutes 45 Visit Number 25 Number of HIGH PRESSURE OPERATOR Visits 0 Evaluation Information Evaluation Date 01/16/22 PT-OP-B Current Condition Start: 01/16/22 17:34 Freq: Status: Active Protocol: Document 01/16/22 14:30 DCW (Rec: 01/16/22 17:52 DCW [id number]) Current Condition History of Current Condition Onset Date One month Current Complaints 2 weeks s/p Hamstring tear repair History of Current Condition Pt is a 66 year old male presenting two week s/p left proximal hamstring rupture repair. In the beginning of December, pt was out [facility] during vacation in [place]. Pt felt a pop in his left hamstring, and was seen in a local ED. Was diagnosed with a strain. Pt continued to have pain, was scheduled for an MRI on 12/25/21 and PT on 12/26/21. Pt arrived at his initial PT eval with his MRI results, which stated complete tear of the Hamstring tendons with 4 cm retraction of the muscle. At that time, it was decided to cancel his PT eval until he was seen by an Ortho. Pt was seen soon afterward and underwent surgical repair 01/01. Referral notes limited ROM to not extend further than 60?, and to keep knee immobilizer on at all times. Treatment Goals Patient/Caregiver Goals Return to riding his motorcycle, get back to hiking and walking 5+ miles a day, and to be able to exercise enough to get rid of his weight gain that has occurred since initial injury. PT-OP-C Subjective Start: 01/16/22 17:34 Freq: Status: Active Protocol: Document 04/26/22 09:45 DCW (Rec: 04/26/22 10:37 DCW [id number]) OP-PT Subjective Patient Comments Patient Comments Hasn't been getting out walking due to weather. PT-OP-E Functional Tests Start: 01/17/22 08:37 Freq: Status: Active Protocol: Document 01/16/22 14:30 DCW (Rec: 01/17/22 08:38 DCW [id number]) Functional Tests Timed Up and Go (TUG) Score 7.99 Comments Three-trial average (9.10, 7. 16, 7.71) TUG Impairment Rating 0% Impaired (Score 10) PT-OP-F Manual Assessment Start: 01/16/22 17:34 Freq: Status: Active Protocol: Document 03/13/22 10:30 DCW (Rec: 03/13/22 12:54 DCW [id number]) Manual Assessments Joint Mobility Assessment Joint Mobility Assessment Knee extension returning to WNL, still limited to 16? extension. PT-OP-G Mobility & Gait Start: 01/16/22 17:34 Freq: Status: Active Protocol: Document 03/13/22 10:30 DCW (Rec: 03/13/22 12:54 DCW [id number]) OP Gait Assessment Comments Gait Comments Mild antalgia, pt walking 2-3 miles daily, no assistive device PT-OP-K Range of Motion Start: 01/16/22 17:34 Freq: Status: Active Protocol: Document 03/13/22 10:30 DCW (Rec: 03/13/22 12:54 DCW [id number]) Knee Goniometric Range of Motion Knee Left Patient Position 121 Extension Active (degrees) 16 PT-OP-Q Treatments Start: 01/16/22 17:34 Freq: Status: Active Protocol: Document 04/26/22 09:45 DCW (Rec: 04/26/22 10:37 DCW [id number]) Cardio Equipment Elliptical Duration (Minutes) 6 Resistance 7 Gym Equipment Cable Column (Body Solid) Leg Curl Resistance 12.5# L, 30# R Shuttle Recovery Unilateral Squats Resistance 62# Reps/Time 2X10 Bilateral Squats Resistance 112# Reps/Time 2X10 Therapeutic Exercises Standing Exercises Squat Standing Exercise Name eccentric chair taps Resistance no UE support Equipment Used mesh chair, added perdomo cushion Reps/Minutes x12 Comments vc for hip hinge, knees behind toes Stretch Standing Exercise Name Calf stretch Side bilateral Equipment Used PIA, handrail Reps/Minutes x60 step ups Standing Exercise Name Up/Down Equipment Used 6 step Comments cues for max height, upright posture Hip extension Standing Exercise Name Hip extension Side left Resistance Blue Equipment Used handrail Comments vc for toes forward Other Exercises Resisted ambulation Other Exercise Name Resisted side-stepping Side bilateral Resistance Blue Reps/Minutes 2 x 12 ft ea Comments vc for toes fwd, heels apart, upright posture Neuro Re-Education Treatment Balance Activities Tandem Stance Details Tandem Stance SLS Details SLS PT-OP-T Assessment and Plan Start: 01/16/22 17:34 Freq: Status: Active Protocol: Document 04/26/22 09:45 DCW (Rec: 04/26/22 10:37 DCW [id number]) Physical Therapy Assessment Impairments Impairments Functional Activities, Functional Mobility,Gait,Pain, ROM,Strength,Tone Goals Two Impairment Pt unable to walk/hike is usual five miles per day Upholsterer Helper Goal (LTG) Pt to progress to full knee extension, following post-op protocol, in order to normalize gait pattern in order for pt to return to walking or hiking at least five miles a day, which is his preferred leisure activity. LTG Duration Met One Impairment Pt does not have an appropriate home exercise program Short Term Goal (STG) Pt to be independent and compliant with an appropriate HEP STG Duration Met Progress Towards Goals Progress Towards Goals Goals Met Assessment Summary Assessment Pt has met all goals, doing very well. Additionally, pt will be out of the state most of the next three months due to various trips and vacations . Pt appropriate for discharge at this time. Physical Therapy Plan Frequency and Duration Frequency of Treatment 2x/Week Plan of Care Start Date 03/13/22 Plan of Care End Date 05/13/22 Therapeutic Interventions Therapeutic Interventions Aquatic Therapy,Gait Training, Home Exercise Program,Joint Mobilizations,Manual Therapy, Orthotic/Prosthetic Management ,Patient/Caregiver Education, Self-Care/Home Management,Soft Tissue Mobilization, Therapeutic Activities, Therapeutic Exercises Modalities Cold Pack/Ice Massage,Electric Stimulation,Hot Packs, Ultrasound Discharge Physical Therapy Discharge Reasons Goals Met Next Visit Focus/Plan Next Note Type Discharge Summary
== END 2022-05-01 10:58 | disposition home or self-care (01) ==
LOC: PHYS 09:45
PROVIDERS: Family Provider Family Medicine; PCP Family Medicine; Referring Provider Physician Assistant; Visit Provider Physician Assistant
DX: S76.312A Strain of muscle, fascia and tendon of the posterior muscle group at thigh level, left thigh, initial encounter (principal); R26.89 Other abnormalities of gait and mobility; M25.652 Stiffness of left hip, not elsewhere classified; M25.662 Stiffness of left knee, not elsewhere classified
CPT/HCPCS: 97110; 97112; 97116; 97140; 97162; 97535

== ENCOUNTER → 2022-06-14 11:12 | Outpatient (CLI) | payer MEDICARE, SELFPAY ==
--- NOTE | 2022-06-14 | DI.US.S_ITS ---
PROCEDURE: US ABD AORTA ANEURYSM SCREEN INDICATIONS: Personal history of nicotine dependence TECHNIQUE: Real time scanning was performed of the aorta and iliac arteries, with image documentation. COMPARISON: [facility], [place], ABDOMEN/PELVIS WITH CONTRAST, 12/02/2013, 5:12. FINDINGS: Aorta: Proximal aortic diameter measures 2.7 x 2.6 cm. Mid-aorta measures 2.2 x 2.3 cm. Distal aortic diameter is 2.1 x 2.3 cm. Iliac arteries: Right common iliac artery measures 1.5 x 1.7 cm. Left common iliac artery measures 1.4 x 1.3 cm. IMPRESSION: Negative for aneurysm. Dictated by: Xu Yanez M.D. on 06/14/2022 at 14:02 Approved by: Xu Yanez M.D. on 06/14/2022 at 14:03
== END ==
PROVIDERS: Family Provider Family Medicine; PCP Family Medicine; Referring Provider Family Medicine; Visit Provider Family Medicine
DX: Z13.6 Encounter for screening for cardiovascular disorders (principal); Z87.891 Personal history of nicotine dependence
CPT/HCPCS: 76706

== ENCOUNTER → 2022-11-07 10:26 | Outpatient (CLI) | payer MEDICARE, SELFPAY ==
[2022-11-07 11:16] LABS: Add Manual Diff / Slide Review NO; Basophils Absolute Auto 100 /uL (0-100); Basophils Percent Auto 0.9 % (0-2); Eosinophils Absolute Auto 100 /uL (0-450); Eosinophils Percent Auto 1.4 % (2-4); Hematocrit 39.7 % (41-53); Hemoglobin 13.3 g/dL (13.5-17.5); Lymphocytes Absolute Auto 1600 /uL (1100-4500); Lymphocytes Percent Auto 24.7 % (25-40); Mean Corpuscular HGB Conc 33.6 % (30-36); Mean Corpuscular Hemoglobin 28.9 PG (26-34); Monocytes Absolute Auto 700 /uL (0-900); Monocytes Percent Auto 11.6 % (3-14); Neutrophils Absolute Auto 3900 /uL (1500-7000); Neutrophils Percent Auto 61.4 % (50-75); Platelet Count 245 X10^3/uL (150-400); Red Blood Cell Count 4.62 X10^6/uL (4.5-5.9); Red Cell Distribution Width 14.6 % (11.6-14.8); White Blood Cell Count 6.4 X10^3/uL (4.5-11.0)
[2022-11-07 11:49] LABS: BUN Creatinine Ratio 18.5 (6-22); Blood Urea Nitrogen 15 mg/dL (9-20); Calcium 9.2 mg/dL (8.4-10.2); Carbon Dioxide 26 mmol/L (22-32); Chloride 106 mmol/L (98-107); Estimated Glomerular Filt Rate > 60 mL/min (>60); Glucose 114 mg/dL (80-110); HEMOLYSIS < 15 (0-50); Potassium 4.9 mmol/L (3.4-5.1); Sodium 137 mmol/L (137-145)
[2022-11-07 12:06] LABS: Appearance Urine UA CLEAR; Bilirubin Urine UA NEGATIVE (NEGATIVE); Color Urine UA YELLOW; Glucose Urine UA NEGATIVE (Negative); Ketones Urine UA NEGATIVE (NEGATIVE); Leukocyte Esterase Urine UA NEGATIVE (NEGATIVE); Nitrite Urine UA NEGATIVE (Negative); Occult Blood Urine UA NEGATIVE (Negative); Protein Urine UA NEGATIVE (Negative); Specific Gravity Urine UA <=1.005 (1.000-1.035); Urobilinogen Urine UA 0.2 E.U./dL (0.2); pH Urine UA 6.5 (4.5-8.0)
[2022-11-07 12:14] LABS: Bacteria Urine Occasional (0-1); Culture Indicated Urine Cult Not Indicated; RBC Urine 0-1/HPF (0-5/HPF); Squamous Epithelial Cell Urine 0-1 /HPF (0-5/HPF); WBC Urine 0-1/HPF (0-5/HPF)
[2022-11-08 04:38] LABS: x Labcorp Estim. Avg Glu (eAG) 126 mg/dL (.)
== END ==
PROVIDERS: Family Provider Family Medicine; PCP Family Medicine; Referring Provider Orthopaedic Surgery; Visit Provider Orthopaedic Surgery
DX: R73.9 Hyperglycemia, unspecified (principal); Z01.812 Encounter for preprocedural laboratory examination; N39.0 Urinary tract infection, site not specified
CPT/HCPCS: 36415; 80048; 81001; 83036; 85025

== ENCOUNTER 2023-01-10 11:51 | Day surgery (SDC) | payer MEDICARE, SELFPAY ==
[2022-12-25 08:40] VITALS: BMI 29.2
[2023-01-10] VITALS (9 sets, daily range): BP systolic 89–106; BP diastolic 56–71; PULSE 50–58; RESP 10–20; TEMP 35.9–36.5; O2SAT 92–97; BMI 29.2
[2023-01-10] MEDS: CELECOXIB 200 MG CAPSULE PO (12:30)
[2023-01-10] MEDS: ACETAMINOPHEN 325 MG TABLET 975 MG PO (12:30)
[2023-01-10] MEDS: PREGABALIN 75 MG CAPSULE PO (12:30)
[2023-01-10] MEDS: LACTATED RINGERS 1,000 ML 42 ML IV ×2 (12:30→16:07)
[2023-01-10] MEDS: VANCOMYCIN 1,000 MG/200 ML PIGGYBACK 200 MG IV (12:46)
--- NOTE | 2023-01-10 14:00 | DI.RAD.S_ITS ---
PROCEDURE: XR HIP W PEL IF DONE RT 2V INDICATIONS: MARCIAL TECHNIQUE: Intraoperative AP pelvis with lateral view(s) of the 3 hip(s). COMPARISON: [facility], [place], XR HIP W PEL IF DONE RT 2V, 01/10/2023, 17:57. [facility], [place], XR HIP W PEL IF DONE RT 2V, 08/17/2021, 11:41. FINDINGS: Bones: Right hip arthroplasty projects in the expected location. Hemostats overlying the left pubic ramus. No fractures or dislocations. Pelvic ring appears intact. No suspicious bony lesions. Soft tissues: The visualized bowel gas pattern is normal. No suspicious soft tissue calcifications. IMPRESSION: Right hip arthroplasty projects in the expected location. Intraoperative guidance provided. Dictated by: Jerson Calloway M.D. on 01/11/2023 at 9:17 Approved by: Jerson Calloway M.D. on 01/11/2023 at 9:19
--- NOTE | 2023-01-10 14:03 | PM.PREOP ---
Pre-operative Note Interval Note History & Physical reviewed/Exam performed by Physician: Yes Changes to H&P: No
--- NOTE | 2023-01-10 14:03 | PM.OP.1 ---
Operative Date/Time/Diagnoses Date of procedure: 01/10/23 Time of procedure: 14:10 Pre-op diagnosis: Right hip OA Post-op diagnosis: same Procedure & Clinicians Procedure: Right total hip arthroplasty anterior approach Same procedure as scheduled: Yes Indications: The patient has had progressively worsening right hip pain with radiographic changes consistent with arthritis. Non-operative management has failed and the patient has requested total hip replacement. The risks, benefits and alternatives to surgery were discussed with the patient prior to proceeding. Risks discussed included, but were not limited to, failure to relieve pain, leg length discrepancy, dislocation, stiffness, infection, nerve damage, deep venous thrombosis, pulmonary embolism, stroke, coma, heart attack, permanent paralysis and , as well as the potential need for eventual revision of the prosthetic. Surgeon: Belgica Harley Vp Outcomes: Ashu Daniels Anesthesia Type: General and Spinal Operative Notes Findings: Severe right hip OA adequate stability, adequate bone Closure Type: primary Specimen(s): none sent Prosthetic devices, grafts, tissues, transplants, or devices: Harley and nephew size 0 polar stem, 56 mm cup, neutral poly liner, 36- 3 Oxinium head,one 6.5 mm screw Estimated Blood Loss (mL): 250 Procedure in detail: The patient was brought to the operating room. Patient was carefully positioned in the supine position. Time-out was performed and antibiotics were given. Anesthesia was induced. He was positioned in the on the table in order to allow hyperextension of the hip. The right lower extremity was prepped and draped in a standard sterile fashion. An anterior right hip incision was made 1 fingerbreadth lateral to the anterior superior iliac spine and extended distally towards the greater trochanter. Dissection was carried out through skin and subcutaneous tissues. Superficial hemostasis was achieved. The fascia over the tensor fascia heidi was defined and incised with a knife. Two Allis clamps were used to grasp the fascia. Tensor fascia heidi was retracted laterally. A gelpi retractor was placed. Dissection was carried out down along the neck. The circumflex vessels were carefully identified and cauterized with the Aqua Mantis. A PA was used during the procedure and was essential for retraction intraoperative positioning and adequate hemostasis. It was especially important for safe implantation of the components. There was good visualization of the femoral neck. A Cobra was placed superior to the neck and the gluteus fibers were carefully stripped from that superior aspect of the capsule. A 2nd retractor was placed along the inferior aspect of the neck. The rectus insertion along the capsule was partially released. A 3rd retractor that was then gently placed over the rim of the acetabulum under the rectus. Capsule was carefully incised and released from the intertrochanteric line circumferentially superior to the mid sagittal line and inferiorly to the mid sagittal line until the lesser trochanter was palpable. A tag stitch was placed both in the superior and inferior limb of the capsular insertion. Along the acetabulum capsule was also released up to the mid sagittal 12:00 position. A portion of the labrum was resected. A saw was used to perform an osteotomy at the level of the intertrochanteric line and the junction of the superior femoral neck leaving approximately 1 finger breath of residual inferior neck above the lesser trochanter. A 2nd cut was made along the femoral neck at the base of the head and a napkin ring of neck was removed. Corkscrew was placed in the femoral head and the head was removed without difficulty. Retractors were then repositioned around the acetabulum. Residual labrum was resected and additional osteophytes were removed. A reamer that was 4 mm below the templated size was placed by hand in the acetabulum and it was reamed to centralize the acetabulum. It was then reamed up to 2 under the templated size and fluoroscopy was brought in to confirm the position of the reaming and depth of reaming. I reamed 1 under the anticipated size. A trial cup was placed and noted that it was appropriately sized and fluoroscopy confirmed position and depth. The component was open and inserted without difficulty fluoroscopic imaging was used to confirm that the cup had been adequately seated and was well positioned. It was further stabilized with 2 screws. Neutral poly liner was placed. The cup was tested and noted to be stable. Attention was then directed to the femur. The femur was gently hyperextended additional capsular release was performed as needed in order to allow adequate visualization of the proximal femur with elevation of the femur. Patient was placed in a hyperextended slightly adducted position with maximum external rotation. Box osteotome was used to check for any residual neck as well as sclerotic bone along the trochanter. He had a very tight canal and looked at both the anthology in the polar. Started with anthology define the canal but felt that I would get better rotational stability with a polar and once I had gone up to with 3 anthology a was able to shift over to the polar technology and ultimately went with a polar standard 0 collared stem. [place] pepper was placed in the femur. Additional broaching was performed. Canal finder was used to determine the alignment of the canal and position. Size 1 broach was placed. The canal was then appropriately broached up to the templated size as long as there was adequate stability of the broach and serial advancement of the broach without excessive impingement. Specific attention was directed at avoiding varus attempting to direct the distal aspect of the broach more anteriorly and avoiding excessive anteversion. Trial reduction showed acceptable range of motion, good stability, no posterior impingement, scientologist of leg length and appropriate lateral shuck. I also hyperflexed the hip and checked that there was no impingement anteriorly and there was good stability with flexion, adduction and internal rotation. Marcaine and Exparel were injected. The stem was placed without difficulty. Repeat trial reduction and x-ray showed acceptable overall position, length, and no evidence of the femoral fracture. Final head was placed. Wound was meticulously irrigated with normal saline. The hip was reduced and additional Exparel and Marcaine were injected. The capsule was closed with interrupted nonabsorbable sutures. The fascia of the tensor was closed with interrupted and running Vicryl. No drain was placed. Any tensor fascia heidi muscle that appeared to be contused or injured which was a minimal amount was carefully resected. Capsule around the tensor was injected with Exparel and Marcaine. The skin was closed with barbed stitches for the subcutaneous tissue and skin. We also used surgical glue. The wound was dressed sterilely. Brief Betadine soak was also used and was meticulously irrigated with normal saline. Patient was transferred to recovery room in satisfactory condition. Complications: none Post-operative Condition: stable Disposition: Acute Care Plan for aftercare: The patient will be maintained on a standard total hip replacement protocol with weight bearing as tolerated and anterior hip precautions. The patient will receive Eliquis and sequential compression devices for DVT prophylaxis. The patient will be discharged home when safe for the home environment.
[2023-01-10] MEDS: CEFAZOLIN 2 GM/100 ML PREMIX 100 ML IV ×2 (14:35→21:19)
--- NOTE | 2023-01-10 14:57 | SUR.OPER ---
Supine on padded [place] table with bilateral legs secured in padded positioning boots and suspended in positioning spars, operative leg in traction per surgeon. Head on one pillow. Arm on non-operative side secured on padded armboard <90 degrees abduction. Arm on operative side padded and resting across chest then secured with tape over sheet. Padded perineal post in place per surgeon.
[2023-01-10] MEDS: BUPIVACAINE 0.25% (PF) 60 ML, EPINEPHrine 0.3 MG INJ (15:24)
[2023-01-10] MEDS: TRANEXAMIC ACID 1,000 MG VIAL 2000 MG INJ ×2 (15:24→17:14)
[2023-01-10] MEDS: BUPIVACAINE LIPOSOME 266 MG/20 ML VIAL INJ (15:25)
--- NOTE | 2023-01-10 17:30 | DI.RAD.S_ITS ---
PROCEDURE: XR HIP W PEL IF DONE RT 2V INDICATIONS: RIGHT TOTAL ANTERIOR HIP POST OP TECHNIQUE: 2 view(s) of the hip acquired. COMPARISON: [facility], [place], XR HIP W PEL IF DONE RT 2V, 01/10/2023, 15:39. [facility], [place], XR HIP W PEL IF DONE RT 2V, 08/17/2021, 11:41. FINDINGS: Bones: Patient is status post right hip arthroplasty, with hardware components in expected positions. The hip joint appears congruent. The visualized bony structures appear intact. Soft tissues: Overlying postoperative changes are noted. No suspicious soft tissue densities. IMPRESSION: Expected postoperative appearance of a right total hip arthroplasty. Dictated by: Candido Bolanos M.D. on 01/10/2023 at 18:54 Approved by: Candido Bolanos M.D. on 01/10/2023 at 18:54
[2023-01-10] MEDS: SCOPOLAMINE 1 PATCH TOP (17:51)
[2023-01-10] MEDS: ACETAMINOPHEN 325 MG TABLET 650 MG PO ×2 (18:55→22:57)
[2023-01-10] MEDS: LACTATED RINGERS 1,000 ML 100 ML IV (18:56)
[2023-01-10] MEDS: ATORVASTATIN 20 MG TABLET 10 MG PO (21:18)
[2023-01-10] MEDS: DOCUSATE 100 MG CAPSULE PO (21:18)
[2023-01-10] MEDS: OXYCODONE IR 5 MG TABLET PO (22:56)
[2023-01-11] MEDS: OXYCODONE IR 5 MG TABLET PO ×2 (01:47→05:55)
[2023-01-11] MEDS: LACTATED RINGERS 1,000 ML 100 ML IV (01:50)
[2023-01-11] MEDS: ACETAMINOPHEN 325 MG TABLET 650 MG PO ×2 (05:55→12:18)
[2023-01-11] MEDS: CEFAZOLIN 2 GM/100 ML PREMIX 100 ML IV (05:56)
[2023-01-11 06:04] LABS: Hematocrit 32.7 % (41-53); Hemoglobin 11.1 g/dL (13.5-17.5)
--- NOTE | 2023-01-11 07:23 | PM.DS.1 ---
History of Present Illness History of Present Illness Date Patient Seen: 01/11/23 Time Patient Seen: 07:24 Chief complaint: Right MARCIAL *OPB* Narrative: Operative Date/Time/Diagnoses Date of procedure: 01/10/23 Time of procedure: 14:10 Pre-op diagnosis: Right hip OA Post-op diagnosis: same Procedure & Clinicians Procedure: Right total hip arthroplasty anterior approach Same procedure as scheduled: Yes Indications: The patient has had progressively worsening right hip pain with radiographic changes consistent with arthritis. Non-operative management has failed and the patient has requested total hip replacement. The risks, benefits and alternatives to surgery were discussed with the patient prior to proceeding. Risks discussed included, but were not limited to, failure to relieve pain, leg length discrepancy, dislocation, stiffness, infection, nerve damage, deep venous thrombosis, pulmonary embolism, stroke, coma, heart attack, permanent paralysis and , as well as the potential need for eventual revision of the prosthetic. Surgeon: Belgica Harley Manager Management: Ashu Daniels Anesthesia Type: General and Spinal Operative Notes Findings: Severe right hip OA adequate stability, adequate bone Closure Type: primary Specimen(s): none sent Prosthetic devices, grafts, tissues, transplants, or devices: Harley and nephew size 0 polar stem, 56 mm cup, neutral poly liner, 36- 3 Oxinium head,one 6.5 mm screw Estimated Blood Loss (mL): 250 Discharge Providers Provider Discharge Date: 01/11/23 Primary care physician: Buck Baca MD Consults: 01/10/23 06:00 Consult to Anesthesiology Routine Comment: Consulting Provider: Anesthesiologist Reason for consultation: Regional block for post operative pain control 01/10/23 18:33 Consult to Discharge Planning Routine Comment: Consult to Occupational Therapy Evaluate & Treat Comment: Physician Instructions: Evaluate and treat Consult to Physical Therapy Evaluate & Treat Comment: Physician Instructions: post op MARCIAL protocol Discharge provider: Emma Loza PA-C Summary Hospital Course Discharge Diagnosis: Right hip osteoarthritis, s/p right total hip arthroplasty. Hospital Course: Mr Hanna's hospital course was unremarkable. On the morning of POD# 1, he was feeling well and wanted to go home. He was eating and voiding without difficulty, and his pain was well-controlled with oral medication. He had not yet been evaluated by PT. Exam Vital Signs (past 8 hours): Oxygen Delivery Method Room Air Oxygen Flow Rate 0 Narrative Exam Narrative: 5/5 strength in hip flexors, quadriceps, hamstrings, DF, PF, EHL on right. Sensation to light touch intact throughout RLE. Calf soft, compressible, nontender. Aquacel CDI. Objective Labs 01/11/23 05:46 Labs: Laboratory Results - last 24 hr 01/11/23 05:46 Hgb 11.1 L Hct 32.7 L PFSH Medical History (Updated 01/01/22 @ 12:22 by Ambar Palmer, WAYNE) Alcoholic Anesthesia complication Atrial fibrillation Healthy adult History of cardioversion HLD (hyperlipidemia) HTN (hypertension) WONG (obstructive sleep apnea) Pacemaker (2020) Perianal abscess PONV (postoperative nausea and vomiting) Surgical History (Updated 01/01/22 @ 12:21 by Ambar Palmer, WAYNE) H/O cardiac radiofrequency ablation H/O elbow surgery History of back surgery History of bilateral carpal tunnel release History of surgery Hx of colonoscopy (01/2020) Hx of shoulder surgery No pertinent past surgical history Social History household members: spouse Smoking Status: Former smoker alcohol intake: former Discharge Assessment & Plan Assessment and Plan Assessment: Right hip osteoarthritis, s/p right total hip arthroplasty Plan of Treatment: Discharge home after PT if PT agrees. Pt has post-op meds at home. F/u in 2 weeks as scheduled. Discharge Plan Discharge Plan Patient Disposition: Home Discharge orders & Medications Discharge Orders: Discharge (Order); Ordered 01/11/23 Ordered By: Emma Loza Prescriptions: Continued amlodipine 5 mg Tablet 5 mg PO DAILY sildenafil (pulm.hypertension) 20 mg Tablet 20 mg PO TID PRN (Reason: Erectile Dysfunction) Rx Instructions: 2-3 tabs PRN omega 2-bhc-ghl-fish oil [Fish Oil] 1,200 (144-216) mg Capsule 1 cap PO DAILY psyllium husk [Metamucil] 0.4 gram Capsule 2.4 g PO DAILY Eliquis 5 mg tablet 5 mg PO BID atorvastatin 10 mg tablet 10 mg PO BEDTIME losartan 25 mg tablet 25 mg PO DAILY metoprolol tartrate 25 mg tablet 50 mg PO BID multivitamin Tablet 1 tab PO DAILY cholecalciferol (vitamin D3) 50 mcg (2,000 unit) capsule 50 mcg PO DAILY Pharmacist Comment: Restart Eliquis w/ evening dose on 01/12/2023. Follow up/Referrals: Belgica Harley MD [Physician] - As previously scheduled (Follow up with Viv Catherine PA-C, on 01/24/2023 @ 3:[address] [facility] office in [place].) Buck Baca MD [Primary Care Provider] - Diet/Activity/Treatments Diet: Diet as Tolerated Activity: Weightbearing as tolerated to right leg. Anterior hip precautions. Discuss goals for riding in [place] w/ physical therapist. Cold/Heat Therapy: Ice to hip as needed for pain. Skin/Wound/Dressing Care Report to your healthcare provider any signs of infection, such as:: chills, fever, night sweats, unusual drainage and unusual redness Dressing: May shower. Leave Aquacel dressing in place until follow up visit. No bathing or otherwise soaking incision. Call the office if the dressing becomes saturated inside. Visit Report/Discharge Packet Instructions: DI for Hip Replacement, DI for Prescription Opioid Use Stand Alone Forms: Patient Portal/API, Surgery Discharge Discharge Data Primary Care Provider: Buck Baca Attending Provider: Belgica Harley
[2023-01-11 07:39] VITALS: BP 107/56; PULSE 57; RESP 17; TEMP 36.4; O2SAT 98
[2023-01-11] MEDS: MULTIVITAMIN 1 TABLET 1 TAB PO (08:25)
[2023-01-11] MEDS: FISH OIL 1,000 MG CAPSULE 1000 MG PO (08:25)
[2023-01-11] MEDS: DOCUSATE 100 MG CAPSULE PO (08:26)
[2023-01-11] MEDS: CHOLECALCIFEROL (VITAMIN D3) 1,000 UNIT TABLET 2000 UNIT PO (08:26)
[2023-01-11] MEDS: OXYCODONE IR 10 MG TABLET PO ×2 (09:06→12:18)
[2023-01-11 09:11] VITALS: BP 107/56; PULSE 56
--- NOTE | 2023-01-11 09:19 | CM.DANOTE ---
DCP: Case received, EMR reviewed and met with patient. Spouse, Christianne, was also at bedside. Introduced self and role. Was able to obtain information regarding patient's baseline activity status prior to his surgery. DCP assessment completed with information currently available. Patient is a 67 year old male who admitted yesterday morning to the care of the orthopedic team. PCP: Dr. Baca. Payer: confirmed: [facility]. Patient came to the hospital via private vehicle for a surgical procedure. Patient had right total hip arthroplasty, anterior approach. Patient has history of right hip osteoarthritis. Met with patient in his room, along with spouse. Patient was sitting up in bed, alert, pleasant, wanting to go home. He has not yet worked with P.T. Confirmed that he and spouse both reside here in [place]. At his baseline, he is independent, uses no DME prior to surgery, and drives. P: Patient has discharge orders for home today, pending working with P.T. Merlene Rutherford RN/Optical Model Maker And Tester Discharge Planning/Care Management CM Discharge Assessment Start: 01/11/23 09:18 Freq: Status: Active Protocol: Document 01/11/23 09:18 VM (Rec: 01/11/23 09:19 [id number]) Discharge Planning Assessment Assigned Felt Washing Machine Tender Merlene Rutherford RN/Optical Model Maker And Tester Advance Directives? Yes Advance Directives on File No: in process of rewriting History Provided By Patient,Medical Record Prior Living Arrangements House Household Members spouse Type of transporation used prior to Drives own vehicle admit Independent with ADL's Yes Is patient alert and oriented? Yes Caregiver for Another No Discharge Plan Home Transportation Arrangement Spouse Referrals Initiated None needed Whiteboard Updated in Patient Room with Yes name and ext. # of Felt Washing Machine Tender Review Status In Process Next Review Type Continued Stay Review Pre-Anesthesia Assessment Start: 12/25/22 08:40 Freq: Status: Active Protocol: Document 12/25/22 08:40 TC (Rec: 12/25/22 09:36 TC [id number]) Pre-Anesthesia Assessment Preferred Name German Patient Information Reviewed Via Phone Assessment Assessment Completed With Patient Diagnostic Results BMP/CMP,CBC,Urinalysis Comment 11/07/22- Primary Care Provider Buck Baca Medical Clearance Received Yes Seen Specialist in Last 12 Months Yes Specialist Seen Occupational Health Nurse Supervisor,Orthopedist,Sleep specialist Primary Language Mohawk Preferred Language Mohawk Height 5 ft 9 in Weight 198 lb Body Mass Index (BMI) 29.2 Hearing Ability Use of Hearing Aid Visual Impairment Partially Limited Visual Assist Glasses Dentition Type Teeth, Missing Barriers to Learning None Comment tooth should be fixed prior to surgery Hx Anesthesia Reactions Yes: Severe PONV Hx Family Anesthesia Reaction No Hx Malignant Hyperthermia No Hx Blood Transfusions No Hx Blood Transfusion Reaction No Anesthesia Review Requested No: had review 1 year ago, ok to proceed Flying Instructor No alcohol intake former alcohol intake frequency 0-2 drinks per day Smoking Status Former smoker Tobacco type cigarettes how long ago did patient quit smoking 20 yrs ago Substance Use Type does not use Pain Present Denied Pain Comment at times has pain with mobility Musculoskeletal Symptoms Difficulty Walking History of Falling (Recent or History of No ) Patient is completely paralyzed or No completely immobile Ambulatory Aid None/bed rest/nurse assist Prosthesis or Orthotic Device Front Wheel Walker Mental Status Oriented to own ability Comment pt advised to bring walker Is patient on oxygen? No Does patient have ADLER/SOB No Hx Sleep Apnea Yes CPAP/BIPAP use prescribed and used routinely Will Bring CPAP/BIPAP DOS Yes Currently Taking a Beta Candido Yes Can You Climb a Flight of Stairs Without Yes SOB Hx Chest Pain No: had a bout of a-fib about 6 weeks ago, put on flecinide but off now Hx SOB No Hx Syncope or Dizziness No Anti-Coagulant Therapy Yes: KENYON pt advised to get stop date from Surgeon Has a Occupational Health Nurse Supervisor Yes Occupational Health Nurse Supervisor name Joseph Tonykristie Cardiac Testing Yes: echo 07/07/21 scanned Hx Pacemaker/ICD Yes Pacemaker Rep Required? form sent, not back yet Cardiac Clearance Received Not Applicable Diet Type At Home Regular Genitourinary Symptoms Frequency Bladder Pattern Frequency Urinary Catheter Present No Hx Urinary Self Catheterization No Diabetes No Hx Drug Resistant Organism No Presence of External or Internal Medical Yes: Pacemaker, screws left Devices leg Have you had any close contact with No someone diagnosed with COVID-19? Are you experiencing any of these No symptoms symptoms? Evaluation/Screening for possible COVID- Yes 19 infection completed? Received a COVID vaccine? Yes Marital Status Lives With spouse Current Living Arrangements House Number of Floors (Floors) Two Floors Number of Stairs To Enter/Railing? no stair to enter, 14 stairs but patient has elevator in the home. Support System Family Does the Patient Have Assistance After Yes Surgery Patient Discharge Plan Description Return Home Comment spouse Radha Feels Safe in Current Environment Yes Been Physically Hurt or Threatened By a No Person in Current Environment If Yes, Provider Notified No Do you have thoughts of harming yourself None or others? Are you currently considering suicide? No Do you have a plan to hurt yourself or No Plan others? Do You Have Any Spiritual Beliefs That No May Affect Your HC Choices? Do You Have Any Cultural Practices That No May Affect Your HC Choices? Comment gnosticism Who Can We Speak to About Patient's Care Radha Identifying Code for Release of Patient declines Information Health Care Proxy/Next of Kin Radha (spouse) Health Care Proxy Emergency Contact Name Radha (spouse) Emergency Contact Advance Directives? Yes Advance Directives on File No: in process of rewriting Requested Patient Bring Advanced Yes Directives DOS Power of Conference Coordinator Yes Power of Conference Coordinator Name Radha Hanna Power of Conference Coordinator PAC Instructions Assistance for 24 hours post- op,Bring CPAP/BIPAP,Do not shave/clip surgical site, Durable medical equipment, Medications to take/avoid, Nasal antibiotic,No ETOH/ petroleum product on skin DOS, NPO,Pre-surgical wash,Sensory aids,Sturdy shoes/comfortable clothes,Do not bring valuables and remove jewelry
--- NOTE | 2023-01-11 10:52 | OT.IP.EVAL ---
Current Diagnoses Unilateral primary osteoarthritis, right hip (01/10/23) Surgery Performed Operation Date: 01/10/23 13:45 Actual Procedures p Total Hip Arthroplasty/Anterior Approach(Right) - Belgica Harley MD Past Medical History (Last Updated 01/01/22 @ 12:22 by Ambar Palmer, WAYNE) Alcoholic Anesthesia complication Atrial fibrillation Healthy adult History of cardioversion HLD (hyperlipidemia) HTN (hypertension) WONG (obstructive sleep apnea) Pacemaker (2020) Perianal abscess PONV (postoperative nausea and vomiting) Surgical History (Last Updated 01/01/22 @ 12:21 by Ambar Palmer, WAYNE) H/O cardiac radiofrequency ablation H/O elbow surgery History of back surgery History of bilateral carpal tunnel release History of surgery Hx of colonoscopy (01/2020) Hx of shoulder surgery No pertinent past surgical history Occupational Therapy Inpatient Evaluation/Re-Eval M1 PT/OT-IP Prior Functional Status Start: 01/11/23 11:17 Freq: NEEDED Status: Active Protocol: Document 01/11/23 10:14 [facility] (Rec: 01/11/23 11:34 [facility] [id number]) Medical Review Prior Functional Status Communication Independent Mobility and Gait Pt states has been able to walk 4 miles but has pain. Activities of Daily Living and IADL's Due to his pain, pt unable to stefan socks and use of slip on shoes. Prior Functional Level (Other details) Pt has a supportive to be able to assist. Social History Household Members spouse Living Arrangements House Number of Stairs To Enter/Railing? 14 steps but can use the elevator. Home Environment High Toilet,Walk in Shower, Built-In Shower Seat Home Equipment Front Wheel Walker,Application Helper, Sock Aid,Grab Bars Near Toilet ,Grab Bars In Shower Additional Social History Comment Pt has an adjustable bed. M2 OT-IP Current Condition Start: 01/11/23 11:17 Freq: Status: Active Protocol: Document 01/11/23 10:14 [facility] (Rec: 01/11/23 11:34 [facility] [id number]) Occupational Therapy Current Condition Current Condition Evaluation Date 01/11/23 Treatment Diagnosis S/P R MARCIAL , anterior approach Diagnosis Onset Date 01/10/23 Post Operative Precautions Anterior Hip Precautions No Hip Extension,No Hip External Rotation M3 OT- IP Subjective and Pain Start: 01/11/23 11:17 Freq: Status: Active Protocol: Document 01/11/23 10:14 [facility] (Rec: 01/11/23 11:34 [facility] [id number]) OT- Subjective Occupational Therapy Visit Type Type Initial Evaluation Visit Start Time 10:14 Visit Stop Time 10:52 Total Visit Minutes 38 Occupational Therapy Visit Comments Patient Comments Pt agreed to get up and wanting to get dressed. Pt's present for OT eval. Patient/Caregiver Goals To go home. OT Pain Assessment Pain When Pain Assessed During Mobility Pain Present Pain Present Pain Reported Location Right Hip Intensity 1 Scale Used Numeric (0 - 10) M4 OT- IP ADL's Start: 01/11/23 11:17 Freq: Status: Active Protocol: Document 01/11/23 10:14 [facility] (Rec: 01/11/23 11:34 [facility] [id number]) OT [facility] General Evaluation Self-Feeding Ability Independent OT ADL-Grooming General Evaluation Grooming Ability Independent OT ADL-Oral Care General Eval Oral Care Ability Independent OT ADL-Dressing General Eval Upper Body Dressing Ability Independent Lower Body Dressing Ability Moderate Assistance Areas Needing Assistance Underpants/Brief,Pants/Shorts, Socks Comments OT Dressing Comments Pt's able to assist pt to get clothing over his feet. Pt not wanting to try to use LB dressing equipment and states his will just be assisting him. OT ADL-Toileting Comments OT Toileting Comments Suggested pt use the urinal at night as the toilet is 30-40 ft away. Pt states sleeps on the right side of the bed but has all his machines there CPAP, etc and states having to get out of bed on the left side. Pt needing assist to help lift his RLE into and out of the bed at this time. Educated use of gait belt or to assist to help get his RLE out of bed. OT ADL-Bathing Comments OT Bathing Comments Pt states to shower at home. M5 OT- IP IADL's Start: 01/11/23 11:17 Freq: Status: Active Protocol: Document 01/11/23 10:14 [facility] (Rec: 01/11/23 11:34 [facility] [id number]) OT-Instrumental Activities of Daily Living Deficits IADL Deficits Identified Deficits Home Safety Awareness Awareness of Need for Assistance at Home Good Awareness Ability to Problem Solve Emergency Able to Problem Solve Situations Home Safety Comments Pt has a supportive to be able to assist for all his needs. M6 OT- IP Functional Cognition Start: 01/11/23 11:17 Freq: Status: Active Protocol: Document 01/11/23 10:14 [facility] (Rec: 01/11/23 11:34 [facility] [id number]) Cognitive Factors Limiting Selfcare Function Cognitive Ability Level of Alertness Alert Patient Orientation Name,Age,Birthday,Month,Date, Year,Day of Week,Place, Situation Attention Span Ability Capable of Focused Attention, Capable of Sustained Attention Ability to Follow Commands Able to Follow Multi-Step Commands Safety Awareness Decreased Ability to Apply Precautions Cognitive Comments Cognitive Assessment Comments Pt needing reminders to follow his hip precautions of which leg goes forwards or backwards , pt also needing reminders to slow down and take smaller steps as well. OT- Vision and Hearing OT- Hearing Assessment OT- Hearing Assessment WFL OT- Vision Assessment Visual Acuity Glasses All The Time M7 OT- IP Mobility and Balance Start: 01/11/23 11:17 Freq: Status: Active Protocol: Document 01/11/23 10:14 [facility] (Rec: 01/11/23 11:34 [facility] [id number]) OT- Bed Mobility Assessment Supine to Sit Supine to Sit Assist Minimal Assistance Sit to Supine Sit to Supine Assist Minimal Assistance OT-Transfer Assessment Sit to and From Stand Sit to and from Stand Contact Guard Assistance Transfers Transfer Ability Standby Assistance Technique Transfer Destination Bed Transfer Technique Stand Step Pivot Devices Transfer Assistive Devices Front Wheeled Walker Comments Mobility Comments Pt tends to use momentum to try to get out of the bed and needing assist to help get his RLE out and back into the bed at this time. Pt able to use the FWW and needing cues to step with right foot forwards and with the left one when stepping backwards. OT- Balance Assessment Sitting Balance and Reactions Static Sitting Balance Ability Normal Dynamic Sitting Balance Ability Good Standing Balance and Reactions Static Standing Balance Ability Good Dynamic Standing Balance Ability Good M8 OT- IP Objective Assessments Start: 01/11/23 11:17 Freq: Status: Active Protocol: Document 01/11/23 10:14 [facility] (Rec: 01/11/23 11:34 [facility] [id number]) OT Gross Range of Motion Upper Extremity Range of Motion Assessment Within Functional Limits OT Strength Upper Extremity Strength Assessment Within Functional Limits M9 OT- IP Assessment and Plan Start: 01/11/23 11:17 Freq: Status: Active Protocol: Document 01/11/23 10:14 [facility] (Rec: 01/11/23 11:34 [facility] [id number]) OT Summary Assessment and Plan Potential Rehabilitation Potential Excellent Analytic Complexity at Evaluation Low Summary OT Impairments Pain,Strength,Balance, Functional Mobility,Dressing, Toileting,Bathing,Toilet Transfers,Shower Transfers Progress Towards Goals Progressing Toward Goals Assessment Summary Pt low complexity and doing well and main barrier is trying to incorporate his hip precautions during ADl and mobility needs. Pt's is very supportive and able to remind him to follow his hip precautions, assist with ADL's , and help get his RLE into and out of the bed. Pt to go home with assist and have outpt PT. Goals Dressing Goal Independent Toileting Goal Independent Bathing Goal Standby Assistance Toilet Transfer Goal Independent Shower Transfer Goal Independent Days to Meet Goals 3 Frequency of Treatment Frequency Of Treatment Once a Day Treatment Plan OT Treatment Plan ADL Training,Functional Mobility,Patient/Family Education,Discharge Planning Discharge Recommendations Transportation Needs at Discharge Private Vehicle
--- NOTE | 2023-01-11 11:05 | PT.IIE ---
Current Diagnoses Unilateral primary osteoarthritis, right hip (01/10/23) Surgery Performed Operation Date: 01/10/23 13:45 Actual Procedures p Total Hip Arthroplasty/Anterior Approach(Right) - Belgica Harley MD Surgical History (Last Updated 01/01/22 @ 12:21 by Ambar Palmer, WAYNE) H/O cardiac radiofrequency ablation H/O elbow surgery History of back surgery History of bilateral carpal tunnel release History of surgery Hx of colonoscopy (01/2020) Hx of shoulder surgery No pertinent past surgical history Medical History (Last Updated 01/01/22 @ 12:22 by Ambar Palmer, WAYNE) Alcoholic Anesthesia complication Atrial fibrillation Healthy adult History of cardioversion HLD (hyperlipidemia) HTN (hypertension) WONG (obstructive sleep apnea) Pacemaker (2020) Perianal abscess PONV (postoperative nausea and vomiting) Physical Therapy Inpatient Evaluation/Re-Eval M1 PT/OT-IP Prior Functional Status Start: 01/11/23 12:46 Freq: NEEDED Status: Active Protocol: Document 01/11/23 11:05 AB (Rec: 01/11/23 12:58 AB [id number]) Medical Review Prior Functional Status Medical History Reviewed Yes Communication able to make needs known Mobility and Gait pt stated that he is modified independent with all mobilities and ambulation without AD Activities of Daily Living and IADL's per OT note: Pt unable to stefan socks and use of slip on shoes. Social History Household Members spouse Living Arrangements House Number of Floors (Floors) Two Floors Number of Stairs To Enter/Railing? no steps to enter has an elevator to get to 2nd level bedroom Home Environment High Toilet,Walk in Shower, Built-In Shower Seat Home Equipment Front Wheel Walker,Hand Held Shower,Caramel Cutter Hand,Sock Aid,Grab Bars In Shower Additional Social History Comment Pt has an adjustable bed. M2 PT-IP Current Condition Start: 01/11/23 12:46 Freq: NEEDED Status: Active Protocol: Document 01/11/23 11:05 AB (Rec: 01/11/23 12:58 AB [id number]) Physical Therapy Current Condition Current Condition Evaluation Date 01/11/23 Treatment Diagnosis s/p R MARCIAL anterior approach; difficulty in walking Onset Date 01/10/23 M3 PT-IP Subjective Start: 01/11/23 12:46 Freq: NEEDED Status: Active Protocol: Document 01/11/23 11:05 AB (Rec: 01/11/23 12:58 [email or web address]) Subjective Physical Therapy Visit Type Type Initial Evaluation Visit Start Time 11:05 Visit Stop Time 11:45 Total Visit Minutes 40 Number of DOCUMENT PROCESSOR Visits 0 Physical Therapy Visit Comments Patient Comments agreeable to do PT Therapy Pain Assessment Pain When Pain Assessed During Mobility Pain Present Pain Present Pain Reported Location Right Hip Intensity 5 Scale Used Numeric (0 - 10) Pain Management Techniques Distraction,Modification of Treatment,Re-positioning, Timing of Activity with Medications M4 PT-IP Mobility and Gait Start: 01/11/23 12:46 Freq: NEEDED Status: Active Protocol: Document 01/11/23 11:05 AB (Rec: 01/11/23 12:58 [email or web address]) PT-Bed Mobility Assessment Supine to Sit Supine to Sit Standby Assistance Sit to Supine Sit to Supine Standby Assistance PT-Transfer Assessment Sit to and From Stand Sit to and from Stand Standby Assistance,Contact Guard Assistance,1 Person Assistance,Use of Upper Extremities Equipment Transfer Assistive Device Gait Belt,Front Wheeled Walker Orthotic/Prosthetic Devices or Brace: No Comments Mobility Comments pt supine in bed. reviewed hip precautions. spouse in room. educated on proper bed positioning and seated position as pt tends to ER LE per spouse. pt completed supine to sit x 2 sets SBA and cues for techniques. able to sit on EOB SBA. completed sit to stand x 2 sets SBA and initial cues for techniques but able to complete without cues on 2nd rep. pt tends to pull on FWW and plop back during sit < >stand. educated on proper techniques and importance of muscle retraining. ambulated in room ~ 40 ft using FWW SBA. pt sat back on EOB. table and call light placed within reach. pt and spouse without further concerns. Gait Assessment Gait Gait Assistance Required: Standby Assistance Distance (Feet) 40 Able to Maintain Weight Bearing Status Yes During Gait Assistive Devices Assistive Device Gait Belt,Front Wheeled Walker Orthotic/Prosthetic Devices or Brace: No Gait Deviations General Gait Pattern Antalgic,Decreased Feet Clearance Factors Limiting Gait Function Factors Limiting Gait Function Decreased Activity Tolerance, Decreased Strength,Limited Range of Motion,Pain,Poor Balance,Poor Safety Awareness PT-Balance Assessment Sitting Balance and Reactions Static Sitting Balance Ability Normal Dynamic Sitting Balance Ability Normal Standing Balance and Reactions Static Standing Balance Ability Fair Dynamic Standing Balance Ability Fair Device Used FWW M5 PT-IP Objective Assessments Start: 01/11/23 12:46 Freq: NEEDED Status: Active Protocol: Document 01/11/23 11:05 AB (Rec: 01/11/23 12:58 AB [id number]) Orientation Orientation/Cognition Level of Alertness Alert Orientation Name,Place,Situation Language Function Ability No Deficits Noted Safety Awareness Decreased Safety Awareness Memory Description Short Term Impaired Gross Range of Motion Lower Extremity ROM Assessment Within Functional Limits Strength Lower Extremity Strength Assessment Within Functional Limits Sensation Assessment Sensation Gross Sensation WNL Muscle Tone Muscle Tone WNL Yes M6 PT-IP Treatment Start: 01/11/23 12:46 Freq: NEEDED Status: Active Protocol: Document 01/11/23 11:05 AB (Rec: 01/11/23 12:58 AB [id number]) Physical Therapy Treatment Education Education Provided Precautions,Weight Bearing Status,Safety M7 PT-IP Assessment and Plan Start: 01/11/23 12:46 Freq: NEEDED Status: Active Protocol: Document 01/11/23 11:05 AB (Rec: 01/11/23 12:58 AB [id number]) PT Summary Assessment and Plan Potential Rehabilitation Potential Good Status of Condition at Evaluation Stable Summary Impairments Pain,ROM,Strength,Balance, Coordination,Sensation,Tone, Cognition,Bed Mobility, Transfers,Gait,Activity Tolerance Assessment Summary pt is a 67 y/o male s/p R MARCIAL anterior approach and is WBAT. pt will have his spouse to assist him at home. pt requiring SBA to CGA with mobility using FWW and has outpt PT set up. pt may go home when medically stable. Goals Bed Mobility Goal Independent Transfer Goal Independent,Front Wheeled Walker Gait Goal Independent,Front Wheel Walker Gait Distance 250 Days to Meet Goals 3 Frequency of Treatment Frequency Of Treatment Twice a Day Treatment Plan Physical Therapy Treatment Plan Bed Mobility Training,Transfer Training,Gait Training, Therapeutic Exercise,Balance Retraining,Post Op Education, Discharge Planning,Hot or Cold Pack,Neuromuscular Re-ed, Coordination Retraining,Manual Therapy Precautions Anterior Hip Precautions No Hip Extension,No Hip External Rotation Weight Bearing Status Weight Bearing Status Weight Bear as Tolerated Allowed Weight Bearing Amount (enter % RLE WBAT or #) (%) Recommendations To Nursing Amount of Assist Needed 1 Person Assist Discharge Recommendations PT Discharge Recommendations Home with Assistance, Outpatient PT Transportation Needs at Discharge Private Vehicle
--- NOTE | 2023-01-11 12:35 | PC.NURSE ---
Patient worked with PT/OT this afternoon, cleared for discharge. SBA w/ FWW, tolerating ambulation well. Aquacel dressing clean, dry, & intact w/ no drainage. Pain is adequately controlled with ordered pain medications. Discharge education given to patient and spouse, went over follow-up appointments and anterior hip precautions. Patient/family verbalized understanding, all questions answered. All belongings with patient including home medications, CPAP machine, and home walker. IV removed. Will escort patient via wheelchair to private vehicle when ready.
== END 2023-01-11 13:03 | disposition home or self-care (01) ==
LOC: OR 11:52 → AC 11:52
PROVIDERS: Family Provider Family Medicine; PCP Family Medicine; Referring Provider Orthopaedic Surgery; Visit Provider Orthopaedic Surgery
PROC: (CPT 27130; principal; 2023-01-10 13:45)
DX: M16.11 Unilateral primary osteoarthritis, right hip (principal)
CPT/HCPCS: 27130; 36415; 73502; 76000; 85014; 85018; 97161; 97165; 97530; 97535; C1776; A9270; C9290; J0171; J0690; J1170; J2250; J2405; J2704; J3010

== ENCOUNTER → 2023-03-15 10:05 | Outpatient (CLI) | payer MEDICARE, SELFPAY ==
[2023-01-10 18:34] VITALS: BMI 29.2
[2023-03-15 11:22] LABS: BUN Creatinine Ratio 20.5 (6-22); Blood Urea Nitrogen 17 mg/dL (9-20); Calcium 9.7 mg/dL (8.4-10.2); Carbon Dioxide 24 mmol/L (22-32); Chloride 103 mmol/L (98-107); Estimated Glomerular Filt Rate > 60 mL/min (>60); Glucose 98 mg/dL (80-110); HEMOLYSIS < 15 (0-50); Potassium 4.7 mmol/L (3.4-5.1); Sodium 137 mmol/L (137-145)
== END ==
PROVIDERS: Family Provider Family Medicine; PCP Family Medicine; Referring Provider Nurse Practitioner Family; Visit Provider Nurse Practitioner Family
DX: I10 Essential (primary) hypertension (principal)
CPT/HCPCS: 36415; 80048

== ENCOUNTER → 2023-03-22 11:22 | Outpatient (CLI) | payer MEDICARE, SELFPAY ==
[2023-01-10 18:34] VITALS: BMI 29.2
[2023-03-22 12:10] LABS: Add Manual Diff / Slide Review NO; Basophils Absolute Auto 100 /uL (0-100); Eosinophils Absolute Auto 100 /uL (0-450); Eosinophils Percent Auto 0.8 % (2-4); Hematocrit 39.2 % (41-53); Hemoglobin 12.9 g/dL (13.5-17.5); Lymphocytes Absolute Auto 1700 /uL (1100-4500); Lymphocytes Percent Auto 27.2 % (25-40); Mean Corpuscular Hemoglobin 28.3 PG (26-34); Mean Corpuscular Volume 85.6 fL (80-100); Monocytes Absolute Auto 700 /uL (0-900); Monocytes Percent Auto 10.7 % (3-14); Neutrophils Absolute Auto 3800 /uL (1500-7000); Neutrophils Percent Auto 60.3 % (50-75); Platelet Count 256 X10^3/uL (150-400); Red Blood Cell Count 4.57 X10^6/uL (4.5-5.9); Red Cell Distribution Width 14.7 % (11.6-14.8); White Blood Cell Count 6.4 X10^3/uL (4.5-11.0)
[2023-03-22 12:34] LABS: Alanine Aminotransferase 38 IU/L (<50); Albumin 4.3 g/dL (3.5-5.0); Albumin Globulin Ratio 1.4 (1.0-2.8); Alkaline Phosphatase 63 U/L (38-126); Aspartate Aminotransferase 35 IU/L (17-59); Bilirubin Total 0.9 mg/dL (0.2-1.3); Bilirubin Unconjugated 0.6 mg/dL (0.0-1.1); Cholesterol 133 mg/dL (140-199); Globulin 3.1 g/dL (1.7-4.1); HDL Cholesterol 43 mg/dL (40-60); HEMOLYSIS < 15 (0-50); LDL Cholesterol Calculated 76 mg/dL (<100); Total Protein 7.4 g/dL (6.3-8.2); Triglycerides 69 mg/dL (35-150)
[2023-03-22 13:04] LABS: Creatinine Urine Random 63.4 mg/dL
[2023-03-22 13:08] LABS: Microalbumin Urine Random 1.4 mg/dL (0-1.6)
[2023-03-22 13:20] LABS: Hep C Virus Ab w/Reflex Quant NEGATIVE s/c (NEGATIVE)
== END ==
PROVIDERS: Family Provider Family Medicine; PCP Family Medicine; Referring Provider Family Medicine; Visit Provider Family Medicine
DX: Z11.59 Encounter for screening for other viral diseases (principal); E78.5 Hyperlipidemia, unspecified; I10 Essential (primary) hypertension; Z12.5 Encounter for screening for malignant neoplasm of prostate; F10.20 Alcohol dependence, uncomplicated
CPT/HCPCS: 36415; 80061; 80076; 82043; 82570; 84153; 85025; 86803

== ENCOUNTER → 2023-06-18 07:57 | Outpatient (CLI) | payer MEDICARE, SELFPAY ==
[2023-01-10 18:34] VITALS: BMI 29.2
[2023-06-18 08:38] LABS: Add Manual Diff / Slide Review NO; Basophils Absolute Auto 100 /uL (0-100); Basophils Percent Auto 1.4 % (0-2); Eosinophils Absolute Auto 200 /uL (0-450); Eosinophils Percent Auto 3.1 % (2-4); Hemoglobin 13.2 g/dL (13.5-17.5); Lymphocytes Absolute Auto 2500 /uL (1100-4500); Lymphocytes Percent Auto 40.6 % (25-40); Mean Corpuscular Hemoglobin 27.3 PG (26-34); Mean Corpuscular Volume 82.7 fL (80-100); Monocytes Absolute Auto 800 /uL (0-900); Monocytes Percent Auto 12.7 % (3-14); Neutrophils Absolute Auto 2600 /uL (1500-7000); Neutrophils Percent Auto 42.2 % (50-75); Platelet Count 272 X10^3/uL (150-400); Red Blood Cell Count 4.84 X10^6/uL (4.5-5.9); Red Cell Distribution Width 15.3 % (11.6-14.8); White Blood Cell Count 6.2 X10^3/uL (4.5-11.0)
[2023-06-18 08:54] LABS: BUN Creatinine Ratio 14.8 (6-22); Blood Urea Nitrogen 12 mg/dL (9-20); Calcium 9.2 mg/dL (8.4-10.2); Carbon Dioxide 23 mmol/L (22-32); Chloride 105 mmol/L (98-107); Estimated Glomerular Filt Rate > 60 mL/min (>60); Glucose 101 mg/dL (80-110); HEMOLYSIS < 15 (0-50); Potassium 4.3 mmol/L (3.4-5.1); Sodium 138 mmol/L (137-145)
== END ==
PROVIDERS: Family Provider Family Medicine; PCP Family Medicine; Referring Provider Internal Medicine Cardiovascular Disease; Visit Provider Internal Medicine Cardiovascular Disease
DX: I48.0 Paroxysmal atrial fibrillation (principal)
CPT/HCPCS: 36415; 80048; 85025

== ENCOUNTER → 2023-08-06 10:08 | Outpatient (CLI) | payer MEDICARE, SELFPAY ==
[2023-01-10 18:34] VITALS: BMI 29.2
--- NOTE | 2023-08-06 10:09 | DI.RAD.S_ITS ---
PROCEDURE: XR RIBS RT MIN 3V W CXR 1V INDICATIONS: Right lower chest wall pain x 2 months TECHNIQUE: 2 views of the ribs were acquired, along with a single view chest. COMPARISON: None. FINDINGS: Surgical changes and devices: Left chest wall pacemaker. Bones and chest wall: No fractures or dislocations. No suspicious bony lesions. Overlying soft tissues appear unremarkable. Lungs and pleura: No pleural effusions or pneumothorax. Lungs appear clear. Mediastinum: Mediastinal contours appear normal. Heart size is normal. IMPRESSION: No displaced rib fracture or pneumothorax. Dictated by: Dakotah Spivey M.D. on 08/06/2023 at 11:41 Approved by: Dakotah Spivey M.D. on 08/06/2023 at 11:42
== END ==
PROVIDERS: Family Provider Family Medicine; PCP Family Medicine; Referring Provider Family Medicine; Visit Provider Family Medicine
DX: R07.89 Other chest pain (principal)
CPT/HCPCS: 71101

== ENCOUNTER → 2024-04-24 13:47 | Outpatient (CLI) | payer MEDICARE, SELFPAY ==
[2023-01-10 18:34] VITALS: BMI 29.2
[2024-04-24 16:50] LABS: Add Manual Diff / Slide Review NO; Basophils Absolute Auto 100 /uL (0-100); Basophils Percent Auto 0.9 % (0-2); Eosinophils Absolute Auto 100 /uL (0-450); Eosinophils Percent Auto 1.6 % (2-4); Hemoglobin 14.4 g/dL (13.5-17.5); Lymphocytes Absolute Auto 1800 /uL (1100-4500); Lymphocytes Percent Auto 30.3 % (25-40); Mean Corpuscular HGB Conc 32.7 % (30-36); Mean Corpuscular Hemoglobin 29.1 PG (26-34); Monocytes Absolute Auto 700 /uL (0-900); Monocytes Percent Auto 11.3 % (3-14); Neutrophils Absolute Auto 3400 /uL (1500-7000); Neutrophils Percent Auto 55.9 % (50-75); Platelet Count 295 X10^3/uL (150-400); Red Blood Cell Count 4.94 X10^6/uL (4.5-5.9); Red Cell Distribution Width 14.2 % (11.6-14.8); White Blood Cell Count 6.1 X10^3/uL (4.5-11.0)
[2024-04-24 17:36] LABS: Alanine Aminotransferase 38 IU/L (<50); Albumin 4.2 g/dL (3.5-5.0); Albumin Globulin Ratio 1.4 (1.0-2.8); Alkaline Phosphatase 52 U/L (38-126); Aspartate Aminotransferase 36 IU/L (17-59); BUN Creatinine Ratio 16.5 (6-22); Bilirubin Total 0.7 mg/dL (0.2-1.3); Blood Urea Nitrogen 15 mg/dL (9-20); Calcium 9.7 mg/dL (8.4-10.2); Carbon Dioxide 24 mmol/L (22-32); Chloride 105 mmol/L (98-107); Estimated Glomerular Filt Rate > 60 mL/min (>60); Globulin 3.1 g/dL (1.7-4.1); Glucose 102 mg/dL (80-110); HEMOLYSIS < 15 (0-50); Potassium 4.2 mmol/L (3.4-5.1); Sodium 135 mmol/L (137-145); Total Protein 7.3 g/dL (6.3-8.2)
== END ==
PROVIDERS: Family Provider Family Medicine; PCP Family Medicine; Referring Provider Physician Assistant; Visit Provider Physician Assistant
DX: I48.0 Paroxysmal atrial fibrillation (principal)
CPT/HCPCS: 36415; 80053; 85025

== ENCOUNTER → 2024-05-21 07:12 | Outpatient (CLI) | payer MEDICARE, SELFPAY ==
[2023-01-10 18:34] VITALS: BMI 29.2
--- NOTE | 2024-05-21 07:13 | DI.US.S_ITS ---
PROCEDURE: US ABDOMEN COMPLETE INDICATIONS: unresolved right upper quadrant pain TECHNIQUE: Real-time scanning was performed of the abdominal and retroperitoneal organs, with image documentation. COMPARISON: None. FINDINGS: Liver: Liver measures 19 cm. Increased echogenicity. Gallbladder: Suspect small gallstones and tiny polyps. The largest possible polyp measures 8 mm. This appears pedunculated Biliary ducts: Intrahepatic bile ducts are non-dilated. Extrahepatic bile duct caliber measures 4 mm. Normal is 6-7 mm or less in diameter, or 10 mm or less post-cholecystectomy. Pancreas: Visualized portions of the pancreas are sonographically normal. Spleen: Spleen is normal in size and homogeneous in echotexture. Kidneys: Kidneys are normal in size and echotexture. Right kidney measures 11 cm long; left kidney measures 12 cm long. No hydronephrosis or nephrolithiasis. No solid masses. Left simple cyst measures 2.4 x 2 cm in the inferior pole Aorta: Visualized aorta is normal in caliber at less than 3 cm. Iliacs: Proximal common iliac arteries are normal in caliber at less than 2.5 cm. IVC: Intrahepatic inferior vena cava is patent. Miscellaneous: No free abdominal fluid. IMPRESSION: Suspect cholelithiasis and gallbladder polyps, the largest which measures 8 mm. No sonographic Osei sign. Consider follow-up in 1 year per consensus guidelines for the gallbladder polyp. Given multiplicity and possible attributable gallbladder symptoms, surgical consultation is also reasonable. No biliary ductal dilation. Borderline hepatomegaly and increased hepatic echogenicity, nonspecific, most commonly due to steatosis Dictated by: Jasbir Borjas M.D. on 05/21/2024 at 14:24 Approved by: Jasbir Borjas M.D. on 05/21/2024 at 14:27
== END ==
PROVIDERS: Family Provider Family Medicine; PCP Family Medicine; Referring Provider Family Medicine; Visit Provider Family Medicine
DX: R10.11 Right upper quadrant pain (principal); G89.29 Other chronic pain
CPT/HCPCS: 76700

== ENCOUNTER → 2024-06-04 10:56 | Outpatient (CLI) | payer MEDICARE, SELFPAY ==
[2023-01-10 18:34] VITALS: BMI 29.2
[2024-06-04 12:29] LABS: Hematocrit 42.6 % (41-53); Hemoglobin 14.1 g/dL (13.5-17.5); Mean Corpuscular HGB Conc 33.2 % (30-36); Mean Corpuscular Hemoglobin 29.5 PG (26-34); Mean Corpuscular Volume 88.7 fL (80-100); Platelet Count 261 X10^3/uL (150-400); Red Cell Distribution Width 13.8 % (11.6-14.8); White Blood Cell Count 5.6 X10^3/uL (4.5-11.0)
[2024-06-04 13:05] LABS: Alanine Aminotransferase 37 IU/L (<50); Albumin 4.4 g/dL (3.5-5.0); Albumin Globulin Ratio 1.7 (1.0-2.8); Alkaline Phosphatase 67 U/L (38-126); Aspartate Aminotransferase 34 IU/L (17-59); BUN Creatinine Ratio 18.8 (6-22); Bilirubin Total 0.3 mg/dL (0.2-1.3); Blood Urea Nitrogen 16 mg/dL (9-20); C-Reactive Protein Quant < 0.5 mg/dL (<1.0); Calcium 9.1 mg/dL (8.4-10.2); Carbon Dioxide 22 mmol/L (22-32); Chloride 106 mmol/L (98-107); Cholesterol 105 mg/dL (140-199); Estimated Glomerular Filt Rate > 60 mL/min (>60); Globulin 2.6 g/dL (1.7-4.1); Glucose 101 mg/dL (80-110); HDL Cholesterol 33 mg/dL (40-60); HEMOLYSIS < 15 (0-50); Iron 60 ug/dL (49-181); LDL Cholesterol Calculated 57 mg/dL (<100); Lipase 323 U/L (23-300); Potassium 4.7 mmol/L (3.4-5.1); Sodium 138 mmol/L (137-145); Triglycerides 73 mg/dL (35-150)
[2024-06-04 13:16] LABS: Percent Iron Saturation 16 % (20-50); Total Iron Binding Capacity 369 ug/dL (261-462); Transferrin 353 mg/dL (206-381)
[2024-06-04 13:29] LABS: Prostate Specific Antigen Scrn 0.728 ng/mL (0.1-4.0)
[2024-06-04 13:33] LABS: Ferritin 29 ng/mL (18-464)
[2024-06-04 14:53] LABS: Creatinine Urine Random 72.82 mg/dL
[2024-06-05 21:36] LABS: Tissue Transglutaminase IgA <2 U/mL (0-3); Tissue Transglutaminase IgG 4 U/mL (0-5)
== END ==
PROVIDERS: Family Provider Family Medicine; PCP Family Medicine; Referring Provider Family Medicine; Visit Provider Family Medicine
DX: I10 Essential (primary) hypertension (principal); Z12.5 Encounter for screening for malignant neoplasm of prostate; E78.5 Hyperlipidemia, unspecified; Z80.42 Family history of malignant neoplasm of prostate; R10.11 Right upper quadrant pain; G89.29 Other chronic pain
CPT/HCPCS: 36415; 80053; 80061; 82043; 82570; 82728; 83516; 83540; 83550; 83690; 85027; 86140; G0103

== ENCOUNTER → 2024-06-05 13:02 | Outpatient (CLI) | payer MEDICARE, SELFPAY ==
[2023-01-10 18:34] VITALS: BMI 29.2
[2024-06-05 14:15] LABS: Occult Blood 1 Negative (Negative); Occult Blood 2 Negative (Negative); Occult Blood 3 Negative (Negative)
== END ==
LOC: LAB 13:03
PROVIDERS: Family Provider Family Medicine; PCP Family Medicine; Referring Provider Family Medicine; Visit Provider Family Medicine
DX: R10.11 Right upper quadrant pain (principal); G89.29 Other chronic pain
CPT/HCPCS: 82270; 83993; 87177; 87205

== ENCOUNTER → 2024-07-17 07:57 | Outpatient (CLI) | payer MEDICARE, SELFPAY ==
[2023-01-10 18:34] VITALS: BMI 29.2
--- NOTE | 2024-07-17 07:58 | DI.CT.S_ITS ---
PROCEDURE: CT ABDOMEN PELVIS W CON INDICATIONS: Chronic RUQ pain x1 year, worse with activity TECHNIQUE: After the administration of intravenous contrast, axial sections acquired from the lung bases to the pubic symphysis. Coronal and sagittal reformats were performed. For radiation dose reduction, the following was used: automated exposure control, adjustment of mA and/or kV according to patient size. COMPARISON: [facility], US, US ABDOMEN COMPLETE, 05/21/2024, 7:48. FINDINGS: Image quality: Diagnostic Lower chest: Lower lungs appear unremarkable. Mild cardiomegaly. Partially seen cardiac electrode leads Liver: Possible hepatic steatosis. Gallbladder and biliary system: Polyps are better seen on ultrasound. Probable small gallstone. Nondilated biliary system. No significant surrounding inflammation. Pancreas: No ductal dilation Spleen: Nonenlarged Adrenals: No discrete nodules Kidneys: No hydronephrosis. No solid renal mass. Numerous cysts are present. Subcentimeter lesions are too small to characterize, probably also cysts. 9 mm intermediate density right upper pole lesion is present (2/37). Vessels and lymph nodes: Main portal vein is patent. No abdominal aortic aneurysm. Atherosclerotic calcifications are seen. No pathologic lymph nodes by size criteria. Bowel and peritoneum: No evidence of small bowel obstruction. No pathologic ascites. Colonic diverticula are present. There is focal wall thickening in the distal sigmoid. Nondilated appendix. Body wall: Moderate right inguinal hernia, with mild internal edema Pelvis: Partially obscured by metallic artifact. Bladder and prostate are unremarkable on limited CT evaluation Bones: Right hip arthroplasty. Bilateral sacroiliac ankylosis. Degenerative changes. IMPRESSION: Suspect cholelithiasis. No gallbladder distention. Polyps are better assessed on ultrasound. No biliary ductal dilation. Possible hepatic steatosis. Focal wall thickening of the distal sigmoid colon, consider colonoscopy correlation if not recently obtained. Background diverticulosis is present. Intermediate density renal lesion in the right upper pole measuring 9 mm, indeterminate. A 3 to 6-month renal protocol MRI is suggested to further evaluate. (Reference image 2) Other findings above. Dictated by: Jasbir Borjas M.D. on 07/17/2024 at 10:09 Approved by: Jasbir Borjas M.D. on 07/17/2024 at 10:14
[2024-07-17 08:25] LABS: Estimated Glomerular Filt Rate > 60 mL/min (>60)
== END ==
PROVIDERS: Family Provider Family Medicine; PCP Family Medicine; Referring Provider Family Medicine; Visit Provider Family Medicine
DX: M24.652 Ankylosis, left hip (principal); M24.651 Ankylosis, right hip; R93.429 Abnormal radiologic findings on diagnostic imaging of unspecified kidney; N28.1 Cyst of kidney, acquired; K57.30 Diverticulosis of large intestine without perforation or abscess without bleeding; K40.90 Unilateral inguinal hernia, without obstruction or gangrene, not specified as recurrent; R10.11 Right upper quadrant pain; G89.29 Other chronic pain; Z95.0 Presence of cardiac pacemaker; Z96.641 Presence of right artificial hip joint
CPT/HCPCS: 36415; 74177; 82565; Q9967

== ENCOUNTER 2024-08-18 07:45 | Day surgery (SDC) | payer MEDICARE, SELFPAY ==
[2023-01-10 18:34] VITALS: BMI 29.2
[2024-08-18 08:14] VITALS: BP 150/85; PULSE 69; RESP 16; TEMP 36.2; O2SAT 97
[2024-08-18] MEDS: LACTATED RINGERS 1,000 ML 42 ML IV (08:17)
[2024-08-18] MEDS: ONDANSETRON 4 MG/2 ML INJ IV (08:18)
--- NOTE | 2024-08-18 08:38 | PM.PREOP ---
Pre-operative Note Interval Note History & Physical reviewed/Exam performed by Physician: Yes Changes to H&P: No
--- NOTE | 2024-08-18 09:03 | PM.OP.COLON ---
Operative Date/Time/Diagnoses Date of procedure: 08/18/24 Time of procedure: 09:03 Pre-op diagnosis: Colon screening Post-op diagnosis: other (Sigmoid diverticulosis) Procedure & Clinicians Study performed: Colonoscopy Same procedure as scheduled: Yes Indications: Colon screening Surgeon: Jay Abrams Procedure Notes SCOAP/Timeout: Performed Procedure in detail: Time-out was performed. Mac was induced. Patient was placed in left lateral decubitus position. The perineum was inspected without any gross abnormality. Lubricated pediatric colonoscope was inserted and advanced to the cecum. The terminal ileum was intubated. The colonoscope was withdrawn slowly inspecting the circumference of the colon. Very small polyps may have been missed, prep quality was adequate. Extensive sigmoid diverticulosis was noted. Retroflexed view of the rectum showed small, non prolapsed nonbleeding internal hemorrhoids. The scope was withdrawn the patient was taken to PACU in good condition. Scope withdrawal time: 6 Findings: divertiulosis Specimen(s): none sent Complications: none Impression: Diverticulosis Post-procedure Recommendations: Colonoscopy in 10 years (If in very good health and 10 years) Follow up: as needed Disposition: PACU
[2024-08-18 09:06] VITALS: BP 114/70; PULSE 71; RESP 16; TEMP 36.2; O2SAT 97
[2024-08-18 09:11] VITALS: BP 115/67; PULSE 65; RESP 16; O2SAT 96
[2024-08-18 09:16] VITALS: BP 115/76; PULSE 67; RESP 18; TEMP 36.2; O2SAT 96
== END 2024-08-18 09:30 | disposition home or self-care (01) ==
PROVIDERS: Family Provider Family Medicine; PCP Family Medicine; Referring Provider Surgery; Visit Provider Surgery
PROC: 0DJD8ZZ Inspection of Lower Intestinal Tract, Via Natural or Artificial Opening Endoscopic (ICD-10-PCS; CPT 45378; principal; 2024-08-18 09:00)
DX: Z12.11 Encounter for screening for malignant neoplasm of colon (principal); K57.30 Diverticulosis of large intestine without perforation or abscess without bleeding; K64.8 Other hemorrhoids
CPT/HCPCS: G0121; J2405; J2704

== ENCOUNTER → 2024-10-29 08:09 | Outpatient (CLI) | payer MEDICARE, SELFPAY ==
[2023-01-10 18:34] VITALS: BMI 29.2
--- NOTE | 2024-10-29 08:11 | DI.US.S_ITS ---
PROCEDURE: US ABDOMEN LIMITED INDICATIONS: Cholelithiasis, ? GB polyp, chronic RUQ pain TECHNIQUE: Real-time scanning was performed of the abdominal and retroperitoneal organs, with image documentation. COMPARISON: [facility], CT, CT ABDOMEN PELVIS W CON, 07/17/2024, 9:20. [facility], US, US ABDOMEN COMPLETE, 05/21/2024, 7:48. FINDINGS: Liver: Liver is normal in size and homogeneous in echotexture. Gallbladder: Partially decompressed gallbladder. There is a dependent ovoid echogenic focus near the gallbladder neck measuring 5.7 mm. There is an echogenic adherent focus to the superior wall the gallbladder measuring 3.2 mm. The other echogenic foci here to the wall seen previously are no longer visualized. Gallbladder wall is thin measuring 1.2 mm. No pericholecystic fluid or Osei sign. Biliary ducts: Intrahepatic bile ducts are non-dilated. Extrahepatic bile duct caliber measures 2.5 mm. Normal is 6-7 mm or less in diameter, or 10 mm or less post-cholecystectomy. Pancreas: Visualized portions of the pancreas are sonographically normal. Miscellaneous: No free abdominal fluid. IMPRESSION: Probable gallstones versus adherent sludge. No definite polyp was seen in the gallbladder. No further follow-up required. Dictated by: Judy Ulrich M.D. on 10/29/2024 at 16:00 Approved by: Judy Ulrich M.D. on 10/29/2024 at 16:04
== END ==
PROVIDERS: Family Provider Family Medicine; PCP Family Medicine; Referring Provider Family Medicine; Visit Provider Family Medicine
DX: K80.20 Calculus of gallbladder without cholecystitis without obstruction (principal); K76.0 Fatty (change of) liver, not elsewhere classified; N28.9 Disorder of kidney and ureter, unspecified; K82.4 Cholesterolosis of gallbladder; R10.11 Right upper quadrant pain; G89.29 Other chronic pain
CPT/HCPCS: 76705

== ENCOUNTER → 2025-04-07 10:18 | Outpatient (CLI) | payer MEDICARE, SELFPAY ==
[2023-01-10 18:34] VITALS: BMI 29.2
[2025-04-07 11:15] LABS: Hematocrit 41.2 % (41-53); Hemoglobin 13.9 g/dL (13.5-17.5); Mean Corpuscular HGB Conc 33.8 % (30-36); Mean Corpuscular Hemoglobin 29.1 PG (26-34); Mean Corpuscular Volume 86.3 fL (80-100); Platelet Count 283 X10^3/uL (150-400)
[2025-04-07 11:39] LABS: Alanine Aminotransferase 41 IU/L (<50); Albumin 4.3 g/dL (3.5-5.0); Albumin Globulin Ratio 1.6 (1.0-2.8); Alkaline Phosphatase 65 U/L (38-126); Blood Urea Nitrogen 15 mg/dL (9-20); Calcium 9.0 mg/dL (8.4-10.2); Carbon Dioxide 22 mmol/L (22-32); Chloride 108 mmol/L (98-107); Cholesterol 122 mg/dL (140-199); Estimated Glomerular Filt Rate > 60 mL/min (>60); Globulin 2.7 g/dL (1.7-4.1); Glucose 105 mg/dL (70-99); HDL Cholesterol 38 mg/dL (40-60); HEMOLYSIS < 15 (0-50); Potassium 4.5 mmol/L (3.4-5.1); Sodium 139 mmol/L (137-145); Total Protein 7.0 g/dL (6.3-8.2); Triglycerides 123 mg/dL (35-150)
[2025-04-07 11:44] LABS: Microalbumi Creatinin Ratio Ur 14.0 ug/mg CR (<30)
== END ==
PROVIDERS: Family Provider Family Medicine; PCP Family Medicine; Referring Provider Internal Medicine Cardiovascular Disease; Visit Provider Internal Medicine Cardiovascular Disease
DX: I44.1 Atrioventricular block, second degree (principal); I10 Essential (primary) hypertension; I48.0 Paroxysmal atrial fibrillation; E78.5 Hyperlipidemia, unspecified; Z95.0 Presence of cardiac pacemaker
CPT/HCPCS: 36415; 80053; 80061; 82043; 82570; 85027

== ENCOUNTER → 2025-04-13 08:24 | Outpatient (CLI) | payer MEDICARE, SELFPAY ==
[2023-01-10 18:34] VITALS: BMI 29.2
--- NOTE | 2025-04-13 08:49 | DI.US.S_ITS ---
PROCEDURE: US SCROTUM INDICATIONS: scrotal swelling TECHNIQUE: Real-time scanning was performed of the scrotum and testicles, with image documentation. Color and pulse Doppler interrogation was performed of both testicles. COMPARISON: [facility], CT, CT ABDOMEN PELVIS W CON, 07/17/2024, 9:20. FINDINGS: Right: Testicle is normal in size at 3.6 x 1.9 x 3.4 cm, and homogenous in echotexture. Epididymis is normal in overall size and morphology. Small right hydrocele. No varicoceles. Overlying scrotal skin is normal in thickness. Echogenic mass within the right hemiscrotum superior to the testicle measuring up to 6.5 cm with appearance suggesting fat containing right inguinal hernia with extension into the right hemiscrotum. No bowel identified. Left: Testicle is normal in size at 4.3 x 2.1 x 3.0 cm, and homogeneous in echotexture. Epididymis is normal in overall size and morphology. No hydrocele or varicoceles. Overlying scrotal skin is normal in thickness. Doppler: Color and pulse Doppler demonstrate normal and symmetric arterial flow in both testicles. IMPRESSION: 1. Unremarkable sonographic appearance of the testicles bilaterally. 2. Appearance suggesting right inguinal hernia with herniation of fat into the right hemiscrotum. Dictated by: Sukhwinder MURRAY Interpreted: Daniel Pedroza MD on 04/13/2025 at 9:56 Transcribed by: VICKI on 04/13/2025 at 9:59 Approved by: Daniel Pedroza M.D. on 04/13/2025 at 13:15
== END ==
PROVIDERS: Family Provider Family Medicine; PCP Family Medicine; Referring Provider Family Medicine; Visit Provider Family Medicine
DX: N50.89 Other specified disorders of the male genital organs (principal); K40.90 Unilateral inguinal hernia, without obstruction or gangrene, not specified as recurrent; K80.20 Calculus of gallbladder without cholecystitis without obstruction; R10.11 Right upper quadrant pain; G89.29 Other chronic pain
CPT/HCPCS: 76870; 93975